=== PATIENT | female | born 1940 | race Caucasian/White ===

== ENCOUNTER 2016-08-18 22:02 | Emergency (ER) | payer MEDICARE, BC ==
[2016-08-18 22:15] VITALS: BP 177/89
--- NOTE | 2016-08-18 22:17 | EDM.PDOC ---
ED HPI GI/ABDOMINAL - General Chief Complaint: Genitourinary Problem Stated Complaint: RIGHT SIDE AND GROIN PAIN Time Seen by Provider: 08/18/16 22:16 - History of Present Illness INITIAL COMMENTS - FREE TEXT/NARRATIVE: 76-year-old female presents to the emergency room with right lower quadrant abdominal pain. This started about 4:00 this afternoon however the patient was not feeling good yesterday and a majority of today. Patient has decreased appetite she has not vomited but her stomach does not feel right. She denies any fevers or chills. No other associated pain. No chest pain chest pressure or breathing difficulties. Patient has a history of having gallbladder surgery otherwise no other abdominal surgeries. She is not aware of any burning or frequency with urination. - Related Data Allergies/ADRs: Allergies Allergy/AdvReac Type Severity Reaction Status Date / Time iodine Allergy Other Verified 08/18/16 22:09 Home Meds: Home Meds Apixaban [Eliquis] 5 mg PO BID 07/03/16 [History] Aspirin [Halfprin] 81 mg PO DAILY 07/03/16 [History] Calcium Carbonate [Calcium] 500 mg PO DAILY 07/03/16 [History] Cholecalciferol (Vitamin D3) [Vitamin D] 2,000 unit PO DAILY 07/03/16 [History] Hydrochlorothiazide 25 mg PO DAILY 07/03/16 [History] Levothyroxine 112 mcg PO DAILY 07/03/16 [History] Losartan [Cozaar] 100 mg PO DAILY 07/03/16 [History] Nadolol [Corgard] 40 mg PO DAILY 07/03/16 [History] Omeprazole 20 mg PO DAILY #30 cap.cr 07/03/16 [Rx] Simvastatin [Zocor] 10 mg PO BEDTIME 07/03/16 [History] Past Medical History Cardiovascular History: Reports: Afib, High cholesterol, Hypertension Respiratory History: Reports: Other (see below) Other Respiratory History: seasonal allergies Gastrointestinal History: Reports: GERD Musculoskeletal History: Reports: Osteoarthritis, Other (see below) Other Musculoskeletal History: carpel tunnel Neurological History: Reports: None Psychiatric History: Reports: Depression Other Psychiatric History: 1992 had bout of depression is off medication now Endocrine/Metabolic History: Reports: Diabetes, type II Other Endocrine/Metabolic History: thryroid removed due to hyperthyroid 2000 - Past Surgical History HEENT Surgical History: Reports: Cataract surgery, Tonsillectomy GI Surgical History: Reports: Cholecystectomy Female Surgical History: Reports: D&C, Other (see below) Other Female Surgeries/Procedures: miscarriage x 1 Musculoskeletal Surgical History: Reports: Arthroscopic procedure Social & Family History - Tobacco Use Smoking Status *Q: Former Smoker Month Tobacco Last Used: 50 yrs ago - Caffeine Use Caffeine Use: Reports: Soda - Recreational Drug Use Recreational Drug Use: No ED ROS GENERAL - Review of Systems Review Of Systems: See Below Constitutional: Reports: no symptoms HEENT: Reports: No symptoms Respiratory: Reports: no symptoms Cardiovascular: Reports: No symptoms Endocrine: Reports: no symptoms GI/Abdominal: Reports: Abdominal pain, Constipation (patient has not had a bowel movement in 2 days however has not been eating much for 2 days), Nausea. Denies: Diarrhea, Vomiting : Reports: no symptoms Musculoskeletal: Reports: other (her abdominal pain is aggravated by walking) Skin: Reports: no symptoms Neurological: Reports: no symptoms ED EXAM, GI/ABD - Physical Exam Exam: See Below Exam Limited By: No limitations General Appearance: alert, no apparent distress Head: atraumatic, normocephalic Neck: normal inspection, supple, non-tender, full range of motion Respiratory/Chest: no respiratory distress, lungs clear, normal breath sounds Cardiovascular: regular rate, rhythm, no edema, no murmur GI/Abdominal: normal bowel sounds, soft, other (she has right lower quadrant mild rebound no gaurding or distention) Back Exam: normal inspection. No: CVA tenderness (L), CVA tenderness (R) Extremities: normal inspection, no pedal edema Psychiatric: normal affect, normal mood Course - Vital Signs Last Recorded V/S: Last Vital Signs Temp 36.4 C 08/18/16 22:09 Pulse 103 H 08/18/16 22:09 Resp 20 08/18/16 22:09 BP 177/89 H 08/18/16 22:09 Pulse Ox 94 L 08/18/16 22:09 - Orders/Labs/Meds Orders: Active Orders 24 hr Category Date Time Status Enema [RC] ASDIRECTED Care 08/19/16 00:18 Active Enema [RC] ASDIRECTED Care 08/19/16 01:18 Active Abdomen Pelvis wo Cont [CT] Stat Exams 08/18/16 22:30 Taken Labs: Laboratory Tests 08/18/16 08/18/16 08/18/16 Range/Units 22:35 22:38 22:38 WBC 6.03 (3.98-10.04) K/mm3 RBC 5.31 H (3.98-5.22) M/mm3 Hgb 16.5 H (11.2-15.7) gm/L Hct 48.8 H (34.1-44.9) % MCV 91.9 (79.4-94.8) fl MCH 31.1 (25.6-32.2) pg MCHC 33.8 (32.2-35.5) g/dl RDW Std Deviation 47.6 H (36.4-46.3) fL Plt Count 188 (182-369) K/mm3 MPV 12.5 H (9.4-12.3) fl Neutrophils % (Manual) 69 H (40-60) % Band Neutrophils % 1 (0-10) % Lymphocytes % (Manual) 22 (20-40) % Atypical Lymphs % 0 % Immat Monocytes % (Man) 0 Monocytes % (Manual) 7 (2-10) % Eosinophils % (Manual) 1 (0.7-5.8) % Basophils % (Manual) 0 L (0.1-1.2) Metamyelocytes % 0 Myelocytes % 0 Promyelocytes % 0 Blast Cells % 0 Plasma Cell % (Manual) 0 Nucleated RBCs 0.0 % Platelet Estimate Adequate RBC Morph Comment Normal PT 10.7 (8.0-13.0) SECONDS INR 1.01 APTT 31 (22-36) SECONDS Sodium (136-145) mEq/L Potassium (3.5-5.1) mEq/L Chloride (98-107) mEq/L Carbon Dioxide (21-32) mEq/L Anion Gap (5-15) BUN (7-18) mg/dL Creatinine (0.55-1.02) mg/dL Est Cr Clr Drug Dosing mL/min Estimated GFR (MDRD) (>60) mL/min BUN/Creatinine Ratio (14-18) Glucose (83-115) mg/dL Calcium (8.5-10.1) mg/dL Total Bilirubin (0.2-1.0) mg/dL AST (15-37) U/L ALT (14-59) U/L Alkaline Phosphatase (46-116) U/L Total Protein (6.4-8.2) g/dl Albumin (3.4-5.0) g/dl Globulin gm/dL Albumin/Globulin Ratio (1-2) Urine Color Yellow (Yellow) Urine Appearance Clear (Clear) Urine pH 7.0 (5.0-8.0) Ur Specific [place] 1.015 (1.005-1.030) Urine Protein Negative (Negative) Urine Glucose (UA) Negative (Negative) Urine Ketones Negative (Negative) Urine Occult Blood Negative (Negative) Urine Nitrite Negative (Negative) Urine Bilirubin Negative (Negative) Urine Urobilinogen 0.2 (0.2-1.0) Ur Leukocyte Esterase Negative (Negative) Urine RBC Not seen (0-5) /hpf Urine WBC Not seen (0-5) /hpf Ur Epithelial Cells 0-5 (0-5) /hpf Urine Bacteria Not seen (FEW) /hpf Urine Mucus Few (FEW) /hpf 08/18/16 Range/Units 22:38 WBC (3.98-10.04) K/mm3 RBC (3.98-5.22) M/mm3 Hgb (11.2-15.7) gm/L Hct (34.1-44.9) % MCV (79.4-94.8) fl MCH (25.6-32.2) pg MCHC (32.2-35.5) g/dl RDW Std Deviation (36.4-46.3) fL Plt Count (182-369) K/mm3 MPV (9.4-12.3) fl Neutrophils % (Manual) (40-60) % Band Neutrophils % (0-10) % Lymphocytes % (Manual) (20-40) % Atypical Lymphs % % Immat Monocytes % (Man) Monocytes % (Manual) (2-10) % Eosinophils % (Manual) (0.7-5.8) % Basophils % (Manual) (0.1-1.2) Metamyelocytes % Myelocytes % Promyelocytes % Blast Cells % Plasma Cell % (Manual) Nucleated RBCs % Platelet Estimate RBC Morph Comment PT (8.0-13.0) SECONDS INR APTT (22-36) SECONDS Sodium 138 (136-145) mEq/L Potassium 3.1 L (3.5-5.1) mEq/L Chloride 99 (98-107) mEq/L Carbon Dioxide 30 (21-32) mEq/L Anion Gap 12.1 (5-15) BUN 18 (7-18) mg/dL Creatinine 1.0 (0.55-1.02) mg/dL Est Cr Clr Drug Dosing 37.26 mL/min Estimated GFR (MDRD) 54 (>60) mL/min BUN/Creatinine Ratio 18.0 (14-18) Glucose 103 (83-115) mg/dL Calcium 9.5 (8.5-10.1) mg/dL Total Bilirubin 0.7 (0.2-1.0) mg/dL AST 20 (15-37) U/L ALT 53 (14-59) U/L Alkaline Phosphatase 74 (46-116) U/L Total Protein 7.8 (6.4-8.2) g/dl Albumin 4.6 (3.4-5.0) g/dl Globulin 3.2 gm/dL Albumin/Globulin Ratio 1.4 (1-2) Urine Color (Yellow) Urine Appearance (Clear) Urine pH (5.0-8.0) Ur Specific [place] (1.005-1.030) Urine Protein (Negative) Urine Glucose (UA) (Negative) Urine Ketones (Negative) Urine Occult Blood (Negative) Urine Nitrite (Negative) Urine Bilirubin (Negative) Urine Urobilinogen (0.2-1.0) Ur Leukocyte Esterase (Negative) Urine RBC (0-5) /hpf Urine WBC (0-5) /hpf Ur Epithelial Cells (0-5) /hpf Urine Bacteria (FEW) /hpf Urine Mucus (FEW) /hpf Meds: Medications Discontinued Medications Generic Name Dose Route Start Last Admin Trade Name Bety PRN Reason Stop Dose Admin Fentanyl 50 mcg 08/19/16 00:16 08/19/16 00:21 Sublimaze IVPUSH 08/19/16 00:17 50 mcg ONETIME ONE Administration Lactated Ringer's 500 mls @ 999 mls/hr 08/18/16 22:32 08/18/16 22:42 Ringers, Lactated IV 08/18/16 23:02 999 mls/hr .BOLUS ONE Administration Lactated Ringer's 1,000 mls @ 125 mls/hr 08/18/16 22:45 Ringers, Lactated IV ASDIRECTED [facility] Ondansetron HCl 4 mg 08/18/16 22:32 08/18/16 22:43 Zofran IVPUSH 08/18/16 22:33 4 mg ONETIME ONE Administration - Re-Assessments/Exams Free Text/Narrative Re-Assessment/Exam: 08/18/16 22:56 labs ordered I went ahead and ordered a abdominal pelvic CT as the patient is on Eliquis and they have a long drive in with the winter conditions, and if this is early appendicitis I do not want a delayed diagnosis. 08/19/16 00:15 patient had a barium study done this morning and has not moved the barium passed her right colon. This makes interpretation of the lower half of the study very difficult. Most of her oral contrast instilled her stomach and proximal small bowel. The patient is not feeling any better at this time we will try a Fleets Enema and see if we get this cleared up. If she is feeling better after this we'll not pursue further imaging if not we'll repeat the study. 08/19/16 03:06 patient had a couple of enemas and has had multiple BMs. She is pain-free at this point. We will not pursue further images. Departure - Departure Time of Disposition: 03:07 Disposition: Home, Self-Care 01 Clinical Impression: Resolved abdominal pain Instructions: Abdominal Pain, Adult, [id number] Referrals: Albert Carlson MD [Primary Care Provider] - Forms: ED Department Discharge Additional Instructions: Return to the emergency room with any questions or problems. Return with worsening or returning abdominal pain. Push lots of fluids as well as a regular diet. Followup with your regular physician as needed. - My Orders Last 24 Hours: My Active Orders 08/18/16 22:30 Abdomen Pelvis wo Cont [CT] Stat 08/19/16 00:18 Enema [RC] ASDIRECTED 08/19/16 01:18 Enema [RC] ASDIRECTED - Assessment/Plan Last 24 Hours: My Active Orders 08/18/16 22:30 Abdomen Pelvis wo Cont [CT] Stat 08/19/16 00:18 Enema [RC] ASDIRECTED 08/19/16 01:18 Enema [RC] ASDIRECTED
[2016-08-18] MEDS ORDERED: Ondansetron 4 MG/2 ML SDV IVPUSH ONE (22:32)
[2016-08-18] MEDS ORDERED: Lactated Ringers 500 ML IV ONE (22:32)
[2016-08-18] MEDS ORDERED: Lactated Ringers 1,000 ML IV SCH (22:45)
[2016-08-19] MEDS ORDERED: fentaNYL 100 MCG/2 ML SDV IVPUSH ONE (00:16)
--- NOTE | 2016-08-19 08:36 | CT ---
CT abdomen and pelvis Technique: Multiple axial sections were obtained from above the dome of the diaphragm inferiorly through the pubic symphysis. Intravenous contrast not utilized. Oral contrast has been given. Findings: Significant artifact is identified due to standard oral contrast from upper GI study performed one day earlier. Findings: Visualized lung bases show nothing acute. Noncontrast appearance of the liver shows no discrete abnormality. Spleen appears within normal limits. Adrenal glands show no nodule. Kidneys show no hydronephrosis. No abnormal calcifications seen within the kidneys. Pancreas appears atrophic without discrete abnormality. Aorta shows no aneurysmal dilatation. No retroperitoneal adenopathy is seen. Appendix and other portions of the lower right abdomen and pelvis are very poorly seen secondary to the barium artifact. Scattered air noted within small bowel which shows no dilatation possibly due to mild ileus. Bone window settings show scattered degenerative change within the spine. Impression: 1. Very suboptimal study due to barium artifact. Barium given on previous upper GI study performed one day earlier. 2. Slightly prominent gas within small bowel possibly due to mild ileus. 3. Other incidental findings as noted above. Diagnostic code #2 I agree with preliminary report issued by [employer] (preliminary report dictated on 08/19/16, 4:58 AM Central Time)
== END 2016-08-19 04:46 | disposition home or self-care (01) ==
LOC: JD.ED 22:02
DX: R10.31 Right lower quadrant pain (principal); I10 Essential (primary) hypertension; I48.91 Unspecified atrial fibrillation; E78.00 Pure hypercholesterolemia, unspecified; K21.9 Gastro-esophageal reflux disease without esophagitis; F32.9 Major depressive disorder, single episode, unspecified; Z98.49 Cataract extraction status, unspecified eye; Z90.49 Acquired absence of other specified parts of digestive tract; Z98.890 Other specified postprocedural states; Z87.891 Personal history of nicotine dependence; Z79.82 Long term (current) use of aspirin; Z79.899 Other long term (current) drug therapy; Z91.041 Radiographic dye allergy status; K22.4 Dyskinesia of esophagus; M34.1 CR(E)ST syndrome
CPT/HCPCS: 36415; 74176; 74246; 80053; 81001; 85025; 85610; 85730; 96361; 96374; 96375; 99284; J2405; J3010; J7120

== ENCOUNTER 2016-09-17 03:57 | Emergency (ER) | payer MEDICARE, BC ==
[2016-09-17 04:12] VITALS: BP 149/82
--- NOTE | 2016-09-17 04:13 | EDM.PDOC ---
ED HPI Trauma - General Chief Complaint: Upper Extremity Injury/Pain Stated Complaint: INJURY TO RIGHT WRIST Time Seen by Provider: 09/17/16 04:13 - History of Present Illness INITIAL COMMENTS - FREE TEXT/NARRATIVE: 76-year-old female presents emergency room with right wrist and thumb pain. About 1:00 yesterday afternoon the patient fell forward onto an outstretched hand. After she did this she got up and went about her regular activities has some discomfort but nothing that really slowed her down as time went by the pain got progressively worse around bedtime the pain is getting quite severe she tried to go to sleep but she just couldn't. She comes in this morning for evaluation. Patient has no numbness or tingling in her hand just pain around her wrist and the base of her thumb. Patient has had problems with her thumbs in the past. Allergies/ADRs: Allergies iodine Allergy (Verified 09/17/16 06:16) Other Home Medications: Ambulatory Orders Apixaban [Eliquis] 5 mg PO BID 07/03/16 [Confirmed 08/10/16] Aspirin [Halfprin] 81 mg PO DAILY 07/03/16 [Confirmed 08/10/16] Calcium Carbonate [Calcium] 500 mg PO DAILY 07/03/16 [Confirmed 08/10/16] Cholecalciferol (Vitamin D3) [Vitamin D] 2,000 unit PO DAILY 07/03/16 [ Confirmed 08/10/16] Hydrochlorothiazide 25 mg PO DAILY 07/03/16 [Confirmed 08/10/16] Levothyroxine 112 mcg PO DAILY 07/03/16 [Confirmed 08/10/16] Losartan [Cozaar] 100 mg PO DAILY 07/03/16 [Confirmed 08/10/16] Nadolol [Corgard] 40 mg PO DAILY 07/03/16 [Confirmed 08/10/16] Omeprazole 20 mg PO DAILY #30 cap.cr 07/03/16 [Confirmed 08/10/16] Simvastatin [Zocor] 10 mg PO BEDTIME 07/03/16 [Confirmed 08/10/16] Hydrocodone/Acetaminophen [Anderson 5-325 Tablet] 1 each PO Q6H PRN #15 tablet Past Medical History Cardiovascular History: Reports: Afib, High cholesterol, Hypertension Respiratory History: Reports: Other (see below) Other Respiratory History: seasonal allergies Gastrointestinal History: Reports: GERD Musculoskeletal History: Reports: Osteoarthritis, Other (see below) Other Musculoskeletal History: carpel tunnel Neurological History: Reports: None Psychiatric History: Reports: Depression Other Psychiatric History: 1992 had bout of depression is off medication now Endocrine/Metabolic History: Reports: Diabetes, type II Other Endocrine/Metabolic History: thryroid removed due to hyperthyroid 2000 - Past Surgical History HEENT Surgical History: Reports: Cataract surgery, Tonsillectomy GI Surgical History: Reports: Cholecystectomy Female Surgical History: Reports: D&C, Other (see below) Other Female Surgeries/Procedures: miscarriage x 1 Musculoskeletal Surgical History: Reports: Arthroscopic procedure Social & Family History - Tobacco Use Smoking Status *Q: Former Smoker Month Tobacco Last Used: 50 yrs ago - Caffeine Use Caffeine Use: Reports: Soda - Recreational Drug Use Recreational Drug Use: No Review of Systems - Review of Systems Review Of Systems: See Below Constitutional: Denies: chills, fever Respiratory: Reports: No Symptoms Cardiovascular: Reports: no symptoms GI/Abdominal: Reports: No symptoms Trauma Exam - Physical Exam Exam: See Below Exam Limited By: No limitations General Appearance: Reports: alert, no apparent distress, other (She does well as long she doesn't trying to move her right wrist) Head: Reports: atraumatic, normocephalic Neck: Reports: non-tender, full range of motion, normal alignment, normal inspection Respiratory Exam: Reports: no respiratory distress, lungs clear, normal breath sounds Cardiovascular: Reports: regular rate, rhythm, no edema, no murmur Extremities: Reports: other (Examination of her right wrist and hand shows no obvious fracture deformity flexion extension of the wrist is limited she's got significant snuffbox tenderness. Movement of the digits of the hand are fairly normal except her thumb which is limited due to discomfort near the base) ED TRAUMA EXTREMITY PROCEDURES - Splinting Right Upper Extremity Splint site: Right wrist and thumb Pre-procedure NV status: normal Post-procedure NV status: normal Splint material: fiberglass Splint design: thumb spica Applied & form fitted by: provider Provider post-splint application NV check: NV status normal Complications: No (Patient felt better after placement of the splint) Course - Vital Signs Last Recorded V/S: Last Vital Signs Temp 36.9 C 09/17/16 04:10 Pulse 75 09/17/16 04:10 Resp 18 09/17/16 04:10 BP 149/82 H 09/17/16 04:10 Pulse Ox 100 09/17/16 04:10 - Orders/Labs/Meds Meds: Medications Discontinued Medications Generic Name Dose Route Start Last Admin Trade Name Bety PRN Reason Stop Dose Admin Hydrocodone Bitart/Acetaminophen 1 tab 09/17/16 06:24 09/17/16 06:33 Anderson 325-5 Mg PO 09/17/16 06:25 1 tab ONETIME ONE Administration - Re-Assessments/Exams Free Text/Narrative Re-Assessment/Exam: 09/17/16 08:32 X-ray examination shows diffuse osteopenia significant degenerative changes especially at the base of the thumb. No clear fracture is identified. The patient was placed in a thumb spica splint with her snuffbox discomfort. Patient felt much better after the placement of this. Departure - Departure Time of Disposition: 08:02 Disposition: Home, Self-Care 01 Clinical Impression: Right wrist injury, Pain of right thumb Prescriptions: Hydrocodone/Acetaminophen [Anderson 5-325 Tablet] 1 each PO Q6H PRN #15 tablet PRN Reason: Pain Instructions: Wrist Pain, [id number] Referrals: Albert Carlson MD [Primary Care Provider] - Edgar Thomas MD [Physician] - Forms: ED Department Discharge Additional Instructions: Return to the emergency room with any questions or problems. Keep splint in place. Do not drive while wearing the splint. Keep arm elevated as tolerated ice every couple of hours over wrist as tolerated. Tylenol as needed for pain For more severe pain use the Anderson one every 6 hours as needed. Tylenol dose should not exceed 3000 mg in a 24-hour period. The Anderson contains 325 mg of Tylenol per tablet. Followup with Dr. Thomas today next week
--- NOTE | 2016-09-17 06:13 | CR ---
Right hand: 4 views of the right hand were obtained. Comparison: Previous right hand study of 07/15/13. Mild joint space narrowing is scattered within the DIP and PIP joints as well as within the MCP joint of the thumb and mild joint space narrowing within the second through fourth fingers. Mild joint space narrowing is seen within the IP joint. Bony structures are somewhat osteopenic. Bony density is seen off the PIP joint of the third digit which is compatible with old injury. Osteophytes are seen within the DIP joints of the second and third digits. Degenerative change also noted at the CMC joint of the thumb. Joint space narrowing noted off the distal navicular bone. No acute fracture or other bony abnormality is seen. Impression: 1. Degenerative change as noted above. Osteopenia is seen. 2. No acute bony abnormality is identified. Diagnostic code #2
--- NOTE | 2016-09-17 06:13 | CR ---
Right wrist: 4 views of the right wrist were obtained. Joint space narrowing is noted off the distal navicular bone. Moderate degenerative change is seen within CMC joint of the thumb. Mild soft tissue swelling is seen. Cyst noted within the distal radius believed to be degenerative in etiology. No acute fracture, dislocation or other bony abnormality is seen. Impression: 1. Degenerative change and soft tissue swelling. 2. No acute bony abnormality is seen on right wrist exam. Diagnostic code #2
[2016-09-17] MEDS ORDERED: Acetaminophen/HYDROcodone 325-5 MG Tab PO ONE (06:24)
== END 2016-09-17 08:30 | disposition home or self-care (01) ==
LOC: JD.ED 03:57
DX: S69.91XA Unspecified injury of right wrist, hand and finger(s), initial encounter (principal); I10 Essential (primary) hypertension; E78.00 Pure hypercholesterolemia, unspecified; K21.9 Gastro-esophageal reflux disease without esophagitis; M19.90 Unspecified osteoarthritis, unspecified site; F32.9 Major depressive disorder, single episode, unspecified; E11.9 Type 2 diabetes mellitus without complications; E89.0 Postprocedural hypothyroidism; Z98.49 Cataract extraction status, unspecified eye; Z98.890 Other specified postprocedural states; Z90.49 Acquired absence of other specified parts of digestive tract; Z79.82 Long term (current) use of aspirin; Z79.899 Other long term (current) drug therapy; Z87.891 Personal history of nicotine dependence; W19.XXXA Unspecified fall, initial encounter
CPT/HCPCS: 29125; 73110; 73130; 99283; A9270

== ENCOUNTER 2018-02-07 06:11 | Inpatient (IN) | payer MEDICARE, BC ==
[~2018-02-07 06:11] MED LIST: Lactated Ringers 1,000 ML IV SCH; Lidocaine 1%/Sod Bicarbonate in NS 8.4% 1 ML Syringe IDERM PRN; Sodium Chloride 0.9% 10 ML Syringe FLUSH PRN
[2018-02-07] MEDS ORDERED: Propofol 200 MG/20 ML SDV ONE (06:29)
[2018-02-07] MEDS ORDERED: fentaNYL 100 MCG/2 ML SDV ONE (06:30)
[2018-02-07] MEDS ORDERED: Ketorolac 15 MG/ML SDV IVPUSH PRN (06:31)
[2018-02-07] MEDS ORDERED: Cyclobenzaprine 10 MG Tab PO PRN (06:31)
[2018-02-07] MEDS ORDERED: Morphine 8 MG, EPINEPHrine 0.3 MG, Cefuroxime 750 MG, Ketorolac 30 MG, Sodium Chloride ... ONE ×5 (06:31)
[2018-02-07] MEDS ORDERED: Bisacodyl 5 MG Tab PO PRN (06:32)
[2018-02-07] MEDS ORDERED: Morphine 2 MG/ML Syringe IVPUSH PRN (06:32)
[2018-02-07] MEDS ORDERED: Magnesium Hydroxide 400 MG/5 ML Susp 30 ML Cup PO PRN (06:32)
[2018-02-07] MEDS ORDERED: Sennosides 8.6 MG Tab PO PRN (06:32)
[2018-02-07] MEDS ORDERED: Ondansetron 4 MG/2 ML SDV IVPUSH PRN ×2 (06:32→09:16)
[2018-02-07] MEDS ORDERED: Naloxone 0.4 MG/ML SDV IVPUSH PRN (06:32)
[2018-02-07] MEDS ORDERED: Morphine PF 10 MG/10 ML SDV ONE (06:34)
[2018-02-07] MEDS ORDERED: Bupivacaine 0.75% 30 ML SDV ONE (06:35)
[2018-02-07] MEDS ORDERED: ceFAZolin 1 GM Vial ONE ×2 (06:35→06:40)
[2018-02-07] MEDS ORDERED: Bupivacaine 0.25% 30 ML SDV ONE ×2 (06:35→07:10)
[2018-02-07] MEDS ORDERED: Ondansetron 4 MG/2 ML SDV ONE (06:35)
[2018-02-07] MEDS ORDERED: Vancomycin 1 GM SDV ONE (06:35)
--- NOTE | 2018-02-07 06:51 | PCM.PREANE ---
Preanesthetic Assessment - Procedure Proposed Procedure: Left THR - Anesthesia/Transfusion/Family Hx Anesthesia History: Prior Anesthesia Without Reaction Family History of Anesthesia Reaction: No Transfusion History: No Prior Transfusion(s) Additional History: hx lumbar back surgery - Review of Systems General: No Symptoms Pulmonary: Shortness of Breath (from Afib), Other (MESHA with CPAP) Cardiovascular: Other (Afib, HTN, CHF ) Gastrointestinal: Other (GERD) Neurological: No Symptoms Other: Reports: Easy Bruising, Diabetes (preDM), Thyroid Problems (hypothyroid- thyroidectomy ), Depression, Anxiety - Physical Assessment NPO Status Date: 02/06/18 NPO Status Time: 19:30 Pulse: 70 O2 Sat by Pulse Oximetry: 97 Respiratory Rate: 16 Blood Pressure: 152/90 Temperature: 36.6 C Height: 1.57 m Weight: 54 kg ASA Class: 3 Mental Status: Alert & Oriented x3 Airway Class: Mallampati = 1 Dentition: Reports: Normal Dentition (2 molars ), Missing Tooth/Teeth Thyro-Mental Finger Breadths: 3 Mouth Opening Finger Breadths: 3 ROM/Head Extension: Full Lungs: Clear to Auscultation, Normal Respiratory Effort Cardiovascular: Regular Rate, Irregular Rhythm - Lab Values: Laboratory Last Values MRSA (PCR) Negative 01/18/18 16:52 - Allergies Allergies/Adverse Reactions: Allergies Allergy/AdvReac Type Severity Reaction Status Date / Time cat dander Allergy Cannot Verified 02/04/18 12:35 Remember iodine Allergy Other Verified 02/04/18 12:35 hay fever Allergy Cannot Uncoded 02/04/18 12:35 Remember - Blood Blood Available: No Product(s) Available: None - Anesthesia Plan Pre-Op Medication Ordered: None Beta Tashi: Nadolol Med Last Dose Date: 02/06/18 Med Last Dose Time: 22:30 - Acknowledgements Anesthesia Type Planned: Spinal (with duramorph) Pt an Appropriate Candidate for the Planned Anesthesia: Yes Alternatives and Risks of Anesthesia Discussed w Pt/Guardian: Yes Pt/Guardian Understands and Agrees with Anesthesia Plan: Yes PreAnesthesia Questionnaire HEENT History: Reports: Allergic Rhinitis, Other (See Below) Other HEENT History: eustachian tube dysfunction, bruxism, tonsillitis, wears glasses Cardiovascular History: Reports: Afib, Heart Failure, High Cholesterol, Hypertension Respiratory History: Reports: Sleep Apnea, Other (See Below) Other Respiratory History: seasonal allergies Gastrointestinal History: Reports: Gastritis, GERD, Other (See Below) Other Gastrointestinal History: reflux Genitourinary History: Reports: Urinary Incontinence 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 (See Below) Other OB/BYN History: right breast lump Musculoskeletal History: Reports: Osteoarthritis, Osteoporosis, Other (See Below ) Other Musculoskeletal History: right great toe bunion, right foot metatrsalgia, synovial cyst of popliteal space, carpal tunnel syndrome, degnerative joint disease, knee pain Neurological History: Reports: None, TIA Psychiatric History: Reports: Depression Other Psychiatric History: malaise, fatigue Endocrine/Metabolic History: Reports: Diabetes, Type II, Hypothyroidism Other Endocrine/Metabolic History: thryroid removed due to hyperthyroid 2000 Hematologic History: Reports: None Immunologic History: Reports: None Oncologic (Cancer) History: Reports: None Dermatologic History: Reports: Other (See Below) Other Dermatologic History: skin lesion, cyst excison - Past Surgical History Head Surgeries/Procedures: Reports: None HEENT Surgical History: Reports: Cataract Surgery, Tonsillectomy Cardiovascular Surgical History: Reports: None Respiratory Surgical History: Reports: None GI Surgical History: Reports: Cholecystectomy, Colonoscopy, EGD Female Surgical History: Reports: D&C, Other (See Below) Other Female Surgeries/Procedures: miscarriage x 1 Endocrine Surgical History: Reports: Thyroidectomy Neurological Surgical History: Reports: Other (See Below) Other Neurological Surgeries/Procedures: back surgery Musculoskeletal Surgical History: Reports: Arthroscopic Procedure, Carpal Tunnel Oncologic Surgical History: Reports: None - SUBSTANCE USE Smoking Status *Q: Former Smoker Second Hand Smoke Exposure: No Recreational Drug Use History: No - HOME MEDS Home Medications: Home Meds Apixaban [Eliquis] 5 mg PO BID 07/03/16 [History] Aspirin [Halfprin] 81 mg PO DAILY 07/03/16 [History] Cholecalciferol (Vitamin D3) [Vitamin D] 5,000 unit PO DAILY 07/03/16 [History] Levothyroxine 112 mcg PO DAILY 07/03/16 [History] Losartan [Cozaar] 50 mg PO BID 07/03/16 [History] Nadolol [Corgard] 40 mg PO DAILY 07/03/16 [History] Ca Carbonate/Vitamin D3/Vit K [Calcium + D Soft Chewable Tab] 1 tab PO DAILY [History] Denosumab [Prolia] 60 mg SQ Q6M 02/04/18 [History] Diclofenac Sodium 1 dose TOP ASDIRECTED PRN 02/04/18 [History] Fexofenadine [Emily] 180 mg PO DAILY 02/04/18 [History] Furosemide 20 mg PO DAILY 02/04/18 [History] Ketotifen Fumarate [Allergy Eye Drops] 1 drop EYEBOTH Q4H PRN 02/04/18 [History] Simvastatin 10 mg PO DAILY 02/04/18 [History] buPROPion HCl [Wellbutrin Xl] 150 mg PO DAILY 02/04/18 [History] - CURRENT (IN HOUSE) MEDS Current Meds: Current Medications Bisacodyl (Dulcolax) 5 mg PO DAILY PRN PRN Reason: Constipation Cyclobenzaprine HCl (Flexeril) 10 mg PO TID PRN PRN Reason: Spasms Docusate Sodium (Colace) 100 mg PO BID JUSTUS Famotidine (Pepcid) 20 mg PO Q12H JUSTUS Lactated Ringer's (Ringers, Lactated) 1,000 mls @ 125 mls/hr IV ASDIRECTED JUSTUS Cefazolin Sodium/Dextrose 2 gm (/ Premix) 50 mls @ 100 mls/hr IV Q8H JUSTUS Stop: 02/08/18 06:29 Ketorolac Tromethamine (Toradol) 15 mg IVPUSH Q6H PRN PRN Reason: Pain Lidocaine/Sodium Bicarbonate (Buffered Lidocaine 1% In Ns 8.4%) 0.25 ml IDERM ONETIME PRN PRN Reason: Prior to IV Start Magnesium Hydroxide (Milk Of Magnesia) 30 ml PO BID PRN PRN Reason: Constipation Morphine Sulfate (Morphine) 2 mg IVPUSH Q2H PRN PRN Reason: Breakthrough Pain Naloxone HCl (Narcan) 0.1 mg IVPUSH Q5M PRN PRN Reason: Oversedation Ondansetron HCl (Zofran) 4 mg IVPUSH Q6H PRN PRN Reason: Nausea/Vomiting Oxycodone/Acetaminophen (Percocet 325-5 Mg) 1 - 2 tab PO Q4H PRN PRN Reason: Pain Senna (Senna) 8.6 mg PO BID PRN PRN Reason: Constipation Sodium Chloride (Saline Flush) 10 ml FLUSH ASDIRECTED PRN PRN Reason: Keep Vein Open Discontinued Medications Bupivacaine HCl (Marcaine 0.25%) Confirm Administered Dose 30 ml .ROUTE .STK- MED ONE Stop: 02/07/18 06:36 Bupivacaine HCl (Sensorcaine-Mpf 0.75%) Confirm Administered Dose 30 ml .ROUTE .STK-MED ONE Stop: 02/07/18 06:36 Cefazolin Sodium (Ancef) Confirm Administered Dose 2 gm .ROUTE .STK-MED ONE Stop: 02/07/18 06:36 Cefazolin Sodium (Ancef) Confirm Administered Dose 2 gm .ROUTE .STK-MED ONE Stop: 02/07/18 06:41 Morphine Sulfate 8 mg/Epinephrine HCl 0.3 mg/Cefuroxime Sodium 750 mg/Ketorolac Tromethamine 30 mg/Sodium Chloride 27.9 ml 0 mg .XX ONETIME ONE Stop: 02/07/18 06:32 Fentanyl (Sublimaze) Confirm Administered Dose 100 mcg .ROUTE .STK-MED ONE Stop: 02/07/18 06:31 Morphine Sulfate (Duramorph Pf) Confirm Administered Dose 10 mg .ROUTE .STK-MED ONE Stop: 02/07/18 06:35 Ondansetron HCl (Zofran) Confirm Administered Dose 4 mg .ROUTE .STK-MED ONE Stop: 02/07/18 06:36 Propofol (Diprivan 20 Ml) Confirm Administered Dose 400 mg .ROUTE .STK-MED ONE Stop: 02/07/18 06:30 Tranexamic Acid (Cyklokapron) Confirm Administered Dose 1,000 mg .ROUTE .STK- MED ONE Stop: 02/07/18 06:36 Vancomycin HCl (Vancomycin) Confirm Administered Dose 1 gm .ROUTE .STK-MED ONE Stop: 02/07/18 06:36
[2018-02-07] MEDS ORDERED: ePHEDrine/Normal Saline 25 MG/5 ML Syringe ONE (08:06)
[2018-02-07] MEDS ORDERED: Lactated Ringers 1,000 ML ONE (08:55)
[2018-02-07] MEDS ORDERED: Meperidine 50 MG/ML Vial IVPUSH PRN (09:16)
[2018-02-07] MEDS ORDERED: diphenhydrAMINE 50 MG/ML SDV IVPUSH PRN (09:16)
[2018-02-07] MEDS ORDERED: fentaNYL 100 MCG/2 ML SDV IVPUSH PRN (09:16)
--- NOTE | 2018-02-07 09:18 | PCM.POSTAN ---
POST ANESTHESIA ASSESSMENT - MENTAL STATUS Mental Status: Somnolent - VITAL SIGNS Pulse Rate: 64 SaO2: 98 Resp Rate: 16 Blood Pressure: 120/82 Temperature: 36.7 C - RESPIRATORY Respiratory Status: Respiratory Rate WNL, Airway Patent, O2 Saturation Stable, Supplemental Oxygen - CARDIOVASCULAR CV Status: Pulse Rate WNL, Blood Pressure Stable - GASTROINTESTINAL GI Status: No Symptoms - PAIN Pain Score: 0 - POST OP HYDRATION Hydration Status: Adequate & Stable
[2018-02-07] MEDS ORDERED: Diclofenac Sodium 1% Gel 100 GM Tube TOP PRN (10:17)
[2018-02-07] MEDS ORDERED: ZADITOR OPTH EYEBOTH PRN (10:17)
--- NOTE | 2018-02-07 10:45 | PCM.CONS ---
H&P History of Present Illness - General Date of Service: 02/07/18 Admit Problem/Dx: Admission Diagnosis/Problem Admission Diagnosis/Problem Osteoarthritis of hip Source of Information: Patient, Old Records, Provider, RN, RN Notes Reviewed, Other (Surgical notes ) History Limitations: Reports: No Limitations - History of Present Illness Initial Comments - Free Text/Narative: Catherine Noriega is a 77 yo female patient of Dr. Thomas who is post-operative day 0 of left ИРИНА. Hospital medicine was consulted for post-operative medical care. At this time she is resting comfortably in bed with her CPAP on. Pain is controlled. She denies any chest pain, nausea, or vomiting. She reports baseline A-fib leading to palpitations and shortness of breath but states this is no worse than normal and at baseline. She carries a history of: A-fib, HLD, CHF, MESHA, metabolic syndrome, HTN, GERD, Hypothyroid, osteoporosis, "Pre- dibaetic," Hx/o lumbar spine surgery, anxiety, depression, urinary incontinence , OA, TIA. She is a former smoker. She is a full code. Her primary care provider is Dr. Carlson. Left Hip Pain Score (Numeric/FACES): 0 - Related Data Allergies/Adverse Reactions: Allergies Allergy/AdvReac Type Severity Reaction Status Date / Time cat dander Allergy Cannot Verified 02/07/18 10:55 Remember iodine Allergy Other Verified 02/07/18 10:55 hay fever Allergy Cannot Uncoded 02/07/18 10:55 Remember Home Medications: Home Meds Apixaban [Eliquis] 5 mg PO BID 07/03/16 [History] Aspirin [Halfprin] 81 mg PO DAILY 07/03/16 [History] Cholecalciferol (Vitamin D3) [Vitamin D] 5,000 unit PO DAILY 07/03/16 [History] Levothyroxine 112 mcg PO DAILY 07/03/16 [History] Losartan [Cozaar] 50 mg PO BID 07/03/16 [History] Nadolol [Corgard] 40 mg PO DAILY 07/03/16 [History] Ca Carbonate/Vitamin D3/Vit K [Calcium + D Soft Chewable Tab] 1 tab PO DAILY [History] Denosumab [Prolia] 60 mg SQ Q6M 02/04/18 [History] Diclofenac Sodium 1 dose TOP ASDIRECTED PRN 02/04/18 [History] Fexofenadine [Emily] 180 mg PO DAILY PRN 02/04/18 [History] Furosemide 20 mg PO DAILY 02/04/18 [History] Ketotifen Fumarate [Allergy Eye Drops] 1 drop EYEBOTH Q4H PRN 02/04/18 [History] Simvastatin 10 mg PO DAILY 02/04/18 [History] buPROPion HCl [Wellbutrin Xl] 150 mg PO DAILY 02/04/18 [History] Past Medical History HEENT History: Reports: Allergic Rhinitis, Other (See Below) Other HEENT History: eustachian tube dysfunction, bruxism, tonsillitis, wears glasses Cardiovascular History: Reports: Afib, Heart Failure, High Cholesterol, Hypertension Respiratory History: Reports: Sleep Apnea, Other (See Below) Other Respiratory History: seasonal allergies Gastrointestinal History: Reports: Gastritis, GERD, Other (See Below) Other Gastrointestinal History: reflux Genitourinary History: Reports: Urinary Incontinence 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 (See Below) Other OB/BYN History: right breast lump Musculoskeletal History: Reports: Osteoarthritis, Osteoporosis, Other (See Below ) Other Musculoskeletal History: right great toe bunion, right foot metatrsalgia, synovial cyst of popliteal space, carpal tunnel syndrome, degnerative joint disease, knee pain Neurological History: Reports: None, TIA Psychiatric History: Reports: Depression Other Psychiatric History: malaise, fatigue Endocrine/Metabolic History: Reports: Diabetes, Type II, Hypothyroidism Other Endocrine/Metabolic History: thryroid removed due to hyperthyroid 2000 Hematologic History: Reports: None Immunologic History: Reports: None Oncologic (Cancer) History: Reports: None Dermatologic History: Reports: Other (See Below) Other Dermatologic History: skin lesion, cyst excison - Past Surgical History Head Surgeries/Procedures: Reports: None HEENT Surgical History: Reports: Cataract Surgery, Tonsillectomy Cardiovascular Surgical History: Reports: None Respiratory Surgical History: Reports: None GI Surgical History: Reports: Cholecystectomy, Colonoscopy, EGD Female Surgical History: Reports: D&C, Other (See Below) Other Female Surgeries/Procedures: miscarriage x 1 Endocrine Surgical History: Reports: Thyroidectomy Neurological Surgical History: Reports: Other (See Below) Other Neurological Surgeries/Procedures: back surgery Musculoskeletal Surgical History: Reports: Arthroscopic Procedure, Carpal Tunnel Oncologic Surgical History: Reports: None Social & Family History - Tobacco Use Smoking Status *Q: Former Smoker Used Tobacco, but Quit: Yes Month/Year Tobacco Last Used: 1963 Second Hand Smoke Exposure: No - Caffeine Use Caffeine Use: Reports: Tea - Recreational Drug Use Recreational Drug Use: No H&P Review of Systems - Review of Systems: Review Of Systems: See Below General: Reports: No Symptoms HEENT: Reports: No Symptoms Pulmonary: Reports: Shortness of Breath (chronic -currently at baseline ). Denies: Wheezing, Cough, Sputum Cardiovascular: Reports: Palpitations (chronic- currently at baseline). Denies : Chest Pain, Edema Gastrointestinal: Reports: No Symptoms. Denies: Abdominal Pain, Nausea, Vomiting Genitourinary: Reports: No Symptoms Musculoskeletal: Reports: Leg Pain Skin: Reports: No Symptoms Psychiatric: Reports: No Symptoms Neurological: Reports: Numbness (bilateral lower extermities ), Tingling ( bilateral lower extremities ). Denies: Confusion, Dizziness, Headache, Seizure , Trouble Speaking Hematologic/Lymphatic: Reports: No Symptoms Immunologic: Reports: No Symptoms Exam - Exam Exam: See Below - Vital Signs Vital Signs: Last Vital Signs Temp 98.4 F 02/07/18 10:05 Pulse 60 02/07/18 10:15 Resp 13 02/07/18 10:15 BP 140/74 02/07/18 10:15 Pulse Ox 99 02/07/18 10:15 Weight: 119 lb 0.794 oz - Exam Quality Assessment: Urinary Catheter, DVT Prophylaxis, Other (CAPA currenlty on while napping) General: Alert, Oriented, Cooperative. No: Mild Distress HEENT: Conjunctiva Clear, EACs Clear, EOMI, Hearing Intact, Mucosa Moist & [place] , Nares Patent, Posterior Pharynx Clear, PERRLA Neck: Supple, Trachea Midline. No: JVD Lungs: Clear to Auscultation, Normal Respiratory Effort Cardiovascular: Regular Rate, Irregular Rhythm GI/Abdominal Exam: Normal Bowel Sounds, Soft, Non-Tender, No Distention, No Abnormal Bruit (Female) Exam: Deferred Rectal (Female) Exam: Deferred Back Exam: Normal Inspection, Full Range of Motion Extremities: No Pedal Edema, Normal Capillary Refill, Leg Pain, Limited Range of Motion, Other (TING banadge in place on left leg. Bandage is dry and intact. Colling pack in place ) Peripheral Pulses: 2+: Radial (L), Radial (R), Posterior Tibial (L), Posterior Tibial (R), Dorsalis Pedis (L), Dorsalis Pedis (R) Skin: Warm, Dry, Intact Neurological: Cranial Nerves Intact (grossly) Neuro Extensive - Mental Status: Alert, Oriented x3, Normal Mood/Affect, Normal Cognition Psychiatric: Alert, Normal Affect, Normal Mood - Patient Data Lab Results Last 24 hrs: Laboratory Results - last 24 hr 02/07/18 Range/Units 06:53 Blood Type A POSITIVE Gel Antibody Screen Negative Consult PN Assessment/Plan POD#: 0 Procedures: Procedures APPLY FOREARM SPLINT (09/17/16) ASSAY OF LIPASE (07/03/16) ASSAY OF TROPONIN QUANT (07/03/16) CARDIOVASCULAR STRESS TEST (08/12/15) CHEST X-RAY 2VW FRONTAL&LATL (07/03/16) COMP SCREEN MAMMOGRAM ADD-ON (02/19/16) COMPLETE CBC W/AUTO DIFF WBC (08/18/16) COMPREHEN METABOLIC PANEL (08/18/16) CONTRST X-RAY UPPR GI TRACT (08/18/16) CT ABD & PELVIS W/O CONTRAST (08/18/16) CULTURE SCREEN ONLY (12/03/14) DXA BONE DENSITY AXIAL (08/10/16) ECG MONIT/REPRT UP TO 48 HRS (05/23/15) ECG MONIT/REPRT UP TO 48 HRS (05/23/15) EGD BIOPSY SINGLE/MULTIPLE (08/10/16) ELECTROCARDIOGRAM TRACING (07/03/16) EMERGENCY DEPT VISIT (09/17/16) EMERGENCY DEPT VISIT (08/18/16) EMERGENCY DEPT VISIT (07/03/16) EVALUATION OF WHEEZING (05/23/15) HT MUSCLE IMAGE SPECT MULT (08/12/15) HYDRATE IV INFUSION ADD-ON (08/18/16) OFFICE/OUTPATIENT VISIT EST (12/03/14) PROTHROMBIN TIME (08/18/16) ROUTINE VENIPUNCTURE (08/18/16) STREP A AG IA (12/03/14) THER/PROPH/DIAG INJ IV PUSH (08/18/16) THROMBOPLASTIN TIME PARTIAL (08/18/16) TISSUE EXAM BY PATHOLOGIST (08/10/16) TX/PRO/DX INJ NEW DRUG ADDON (08/18/16) URINALYSIS AUTO W/SCOPE (08/18/16) X-RAY EXAM OF HAND (09/17/16) X-RAY EXAM OF WRIST (09/17/16) (1) S/P total hip arthroplasty SNOMED Code(s): 034986519400, 452997851213 Code(s): Z96.649 - PRESENCE OF UNSPECIFIED ARTIFICIAL HIP JOINT Priority: High Current Visit: Yes Qualifiers: Laterality: left Qualified Code(s): Z96.642 - Presence of left artificial hip joint (2) Osteoarthritis SNOMED Code(s): 309871109 Code(s): M19.90 - UNSPECIFIED OSTEOARTHRITIS, UNSPECIFIED SITE Priority: High Current Visit: Yes Qualifiers: Osteoarthritis location: hip Osteoarthritis type: primary Laterality: left Qualified Code(s): M16.12 - Unilateral primary osteoarthritis, left hip (3) A-fib SNOMED Code(s): 53584085 Code(s): I48.91 - UNSPECIFIED ATRIAL FIBRILLATION Priority: Medium Current Visit: Yes Qualifiers: Atrial fibrillation type: chronic Qualified Code(s): I48.2 - Chronic atrial fibrillation (4) MESHA on CPAP SNOMED Code(s): 59697372 Code(s): G47.33 - OBSTRUCTIVE SLEEP APNEA (ADULT) (PEDIATRIC); Z99.89 - DEPENDENCE ON OTHER ENABLING MACHINES AND DEVICES Priority: Medium Current Visit: Yes (5) CHF (congestive heart failure) SNOMED Code(s): 52032159 Code(s): I50.9 - HEART FAILURE, UNSPECIFIED Priority: Medium Current Visit: No Qualifiers: Heart failure type: unspecified Heart failure chronicity: unspecified Qualified Code(s): I50.9 - Heart failure, unspecified (6) HTN (hypertension) SNOMED Code(s): 49172312 Code(s): I10 - ESSENTIAL (PRIMARY) HYPERTENSION Priority: Medium Current Visit: No Qualifiers: Hypertension type: unspecified Qualified Code(s): I10 - Essential (primary ) hypertension (7) Urinary incontinence SNOMED Code(s): 893568047 Code(s): R32 - UNSPECIFIED URINARY INCONTINENCE Priority: Low Current Visit: No Qualifiers: Urinary Incontinence type: unspecified incontinence Qualified Code(s): R32 - Unspecified urinary incontinence (8) Osteoporosis SNOMED Code(s): 38179949 Code(s): M81.0 - AGE-RELATED OSTEOPOROSIS W/O CURRENT PATHOLOGICAL FRACTURE Priority: Medium Current Visit: No Qualifiers: Osteoporosis type: unspecified Presence of current pathological fracture: unspecified Qualified Code(s): M81.0 - Age-related osteoporosis without current pathological fracture (9) History of TIA (transient ischemic attack) SNOMED Code(s): 861404530 Code(s): Z86.73 - PRSNL HX OF TIA (TIA), AND CEREB INFRC W/O RESID DEFICITS Priority: Low Current Visit: No (10) Hypothyroidism SNOMED Code(s): 38588630 Code(s): E03.9 - HYPOTHYROIDISM, UNSPECIFIED Priority: Low Current Visit : No Qualifiers: Hypothyroidism type: unspecified Qualified Code(s): E03.9 - Hypothyroidism , unspecified (11) Type II diabetes mellitus SNOMED Code(s): 63083373 Code(s): E11.9 - TYPE 2 DIABETES MELLITUS WITHOUT COMPLICATIONS Priority: Low Current Visit: Yes Qualifiers: Diabetes mellitus fpc insulin use: without termite control representative use Diabetes mellitus complication status: without complication Qualified Code(s): E11.9 - Type 2 diabetes mellitus without complications (12) Gastroesophageal reflux disease SNOMED Code(s): 424707970 Code(s): K21.9 - GASTRO-ESOPHAGEAL REFLUX DISEASE WITHOUT ESOPHAGITIS Priority: Low Current Visit: No Qualifiers: Esophagitis presence: esophagitis presence not specified Qualified Code(s) : K21.9 - Gastro-esophageal reflux disease without esophagitis Problem List Initiated/Reviewed/Updated: Yes Plan: I/P: Acute: S/P left total hip arthroplasty - post-operative day 0 -DVT prophylaxis and pain management per primary care team -PT/OT -IS/RT -Monitor oxygen saturation -Titrate oxygen as needed -Vital signs stable -Monitor labs -Pre-operative Hgb was 15.0 -Pre-operative GFR was 51 -A1C was 6.1% Osteoarthritis of left hip -Pain management per primary care team Chronic: A-fib HLD CHF MESHA metabolic syndrome HTN GERD Hypothyroid osteoporosis "Pre-dibaetic" Hx/o lumbar spine surgery anxiety depression urinary incontinence OA Hx/o TIA Plan: CM for discharge planning GI prophylaxis Home medications as indicated Other orders as listed above Routine AM labs She is a full code. Her PCP is Dr. Carlson. Thank you for allowing us to participate in the care of this patient!! Requesting Provider: Dr. Thomas Date Consult Requested: 02/07/18 Reason for Consult: Post-operative medical management Patient History Reviewed: Yes Admission H&P Reviewed: Yes Time Spent (in minutes): 40
[2018-02-07] MEDS: Loratadine 10 MG Tab PO SCH (12:50)
[2018-02-07] MEDS: ceFAZolin 2 GM in Premix Bag 1 BAG IV SCH ×2 (13:27→21:11)
[2018-02-07] MEDS: buPROPion 150 MG Tab.ER PO SCH (14:22)
[2018-02-07] MEDS: Furosemide 20 MG Tab PO SCH (14:22)
[2018-02-07] MEDS: Famotidine 20 MG Tab PO SCH ×2 (14:22→18:07)
[2018-02-07] MEDS ORDERED: Simvastatin 10 MG Tab PO SCH (21:00)
[2018-02-07] MEDS: Acetaminophen/oxyCODONE 325-5 MG Tab PO PRN (21:09)
[2018-02-07] MEDS: Docusate Sodium 100 MG Cap PO SCH (21:09)
[2018-02-07] MEDS: Losartan 25 MG Tab PO SCH (21:10)
[2018-02-07] MEDS: Denosumab 60 MG/1 ML Syringe SCH ×2 (22:05→22:06)
[2018-02-08] MEDS: Acetaminophen/oxyCODONE 325-5 MG Tab PO PRN ×2 (04:03→10:54)
[2018-02-08] MEDS ORDERED: Levothyroxine 112 MCG Tab PO SCH (06:00)
--- NOTE | 2018-02-08 06:15 | PCM.CONSN ---
- General Info Date of Service: 02/08/18 Admission Dx/Problem (Free Text): Admission Diagnosis/Problem Admission Diagnosis/Problem Osteoarthritis of hip Subjective Update: In to see Catherine. She is sitting in the chair watching TV. Earlier in the AM nursing reported patient has been somewhat hypotensive with minimal urine output. 250mL fluid bolus given with good response. Labs look good. Vital signs look good. She has urinated this AM. She has been working with PT/OT. She has no concerns or complaints. No nursing concerns. Functional Status: Reports: Pain Controlled, Tolerating Diet, Ambulating, Urinating, Incentive Spirometry. Denies: New Symptoms - Review of Systems General: Reports: No Symptoms HEENT: Reports: No Symptoms Pulmonary: Reports: No Symptoms Cardiovascular: Reports: No Symptoms Gastrointestinal: Reports: No Symptoms Genitourinary: Reports: No Symptoms Musculoskeletal: Reports: Leg Pain Skin: Reports: No Symptoms Neurological: Reports: No Symptoms Psychiatric: Reports: No Symptoms - Patient Data Vitals - Most Recent: Last Vital Signs Temp 96.6 F 02/08/18 03:53 Pulse 72 02/08/18 03:53 Resp 16 02/08/18 03:53 BP 94/47 L 02/08/18 03:53 Pulse Ox 98 02/08/18 03:53 Weight - Most Recent: 127 lb 1.6 oz I&O - Last 24 Hours: Intake & Output 02/07/18 02/07/18 02/08/18 14:59 22:59 06:59 Intake Total 100 1550 850 Output Total 250 550 100 Balance -150 1000 750 Lab Results Last 24 Hours: Laboratory Results - last 24 hr 02/07/18 Range/Units 06:53 Blood Type A POSITIVE Gel Antibody Screen Negative Med Orders - Current: Current Medications Apixaban (Eliquis) 5 mg PO BID [facility] Aspirin (Halfprin) 81 mg PO DAILY [facility] Bisacodyl (Dulcolax) 5 mg PO DAILY PRN PRN Reason: Constipation Bupropion HCl (Wellbutrin Xl) 150 mg PO DAILY [facility] Last Admin: 02/07/18 14:22 Dose: Not Given Cholecalciferol (Vitamin D3) 5,000 unit PO DAILY [facility] Cyclobenzaprine HCl (Flexeril) 10 mg PO TID PRN PRN Reason: Spasms Diclofenac Sodium (Voltaren 1% Gel) 2 gm TOP ASDIRECTED PRN PRN Reason: Pain Docusate Sodium (Colace) 100 mg PO BID [facility] Last Admin: 02/07/18 21:09 Dose: 100 mg Famotidine (Pepcid) 20 mg PO Q12H [facility] Last Admin: 02/07/18 18:07 Dose: 20 mg Furosemide (Lasix) 20 mg PO DAILY [facility] Last Admin: 02/07/18 14:22 Dose: Not Given Cefazolin Sodium/Dextrose 2 gm (/ Premix) 50 mls @ 100 mls/hr IV Q8H [facility] Stop: 02/08/18 06:29 Last Admin: 02/07/18 21:11 Dose: 100 mls/hr Ketorolac Tromethamine (Toradol) 15 mg IVPUSH Q6H PRN PRN Reason: Pain Levothyroxine Sodium (Levothyroxine) 112 mcg PO ACBREAKFAST [facility] Loratadine (Claritin) 10 mg PO DAILY@1200 [facility] Last Admin: 02/07/18 12:50 Dose: Not Given Losartan Potassium (Cozaar) 50 mg PO BID [facility] Last Admin: 02/07/18 21:10 Dose: Not Given Magnesium Hydroxide (Milk Of Magnesia) 30 ml PO BID PRN PRN Reason: Constipation Morphine Sulfate (Morphine) 2 mg IVPUSH Q2H PRN PRN Reason: Breakthrough Pain Nadolol (Naldol) 40 mg PO DAILY [facility] Naloxone HCl (Narcan) 0.1 mg IVPUSH Q5M PRN PRN Reason: Oversedation Ondansetron HCl (Zofran) 4 mg IVPUSH Q6H PRN PRN Reason: Nausea/Vomiting Oxycodone/Acetaminophen (Percocet 325-5 Mg) 1 - 2 tab PO Q4H PRN PRN Reason: Pain Last Admin: 02/08/18 04:03 Dose: 1 tab Zaditor(Ketotifen Fumarate) Opth Solution 0 each EYEBOTH Q4H PRN PRN Reason: Allergies Senna (Senna) 8.6 mg PO BID PRN PRN Reason: Constipation Simvastatin (Zocor) 10 mg PO BEDTIME [facility] Last Admin: 02/07/18 21:10 Dose: 10 mg Sodium Chloride (Saline Flush) 10 ml FLUSH ASDIRECTED PRN PRN Reason: Keep Vein Open Discontinued Medications Bupivacaine HCl (Marcaine 0.25%) Confirm Administered Dose 30 ml .ROUTE .STK- MED ONE Stop: 02/07/18 06:36 Last Admin: 02/07/18 08:39 Dose: 30 ml Bupivacaine HCl (Sensorcaine-Mpf 0.75%) Confirm Administered Dose 30 ml .ROUTE .STK-MED ONE Stop: 02/07/18 06:36 Bupivacaine HCl (Marcaine 0.25%) Confirm Administered Dose 30 ml .ROUTE .STK- MED ONE Stop: 02/07/18 07:11 Cefazolin Sodium (Ancef) Confirm Administered Dose 2 gm .ROUTE .STK-MED ONE Stop: 02/07/18 06:36 Last Admin: 02/07/18 08:34 Dose: 2 gm Cefazolin Sodium (Ancef) Confirm Administered Dose 2 gm .ROUTE .STK-MED ONE Stop: 02/07/18 06:41 Morphine Sulfate 8 mg/Epinephrine HCl 0.3 mg/Cefuroxime Sodium 750 mg/Ketorolac Tromethamine 30 mg/Sodium Chloride 27.9 ml 0 mg .XX ONETIME ONE Stop: 02/07/18 06:32 Last Admin: 02/07/18 08:40 Dose: 788.3 mg Denosumab (Prolia) 60 mg .XX Q6M [facility] Last Admin: 02/07/18 22:06 Dose: Not Given Diphenhydramine HCl (Benadryl) 25 mg IVPUSH Q6H PRN PRN Reason: Pruritis Stop: 02/07/18 16:00 Ephedrine Sulfate (Ephedrine In Ns) Confirm Administered Dose 25 mg .ROUTE .STK- MED ONE Stop: 02/07/18 08:07 Fentanyl (Sublimaze) Confirm Administered Dose 100 mcg .ROUTE .STK-MED ONE Stop: 02/07/18 06:31 Fentanyl (Sublimaze) 50 mcg IVPUSH Q5M PRN PRN Reason: Pain Stop: 02/07/18 09:17 Lactated Ringer's (Ringers, Lactated) 1,000 mls @ 125 mls/hr IV ASDIRECTED [facility] Last Admin: 02/07/18 06:50 Dose: 125 mls/hr Lactated Ringer's (Ringers, Lactated) Confirm Administered Dose 1,000 mls @ as directed .ROUTE .STK-MED ONE Stop: 02/07/18 08:56 Lidocaine HCl (Xylocaine-Mpf 1%) 5 ml .ROUTE .STK-MED ONE Stop: 02/07/18 06:36 Lidocaine/Sodium Bicarbonate (Buffered Lidocaine 1% In Ns 8.4%) 0.25 ml IDERM ONETIME PRN PRN Reason: Prior to IV Start Last Admin: 02/07/18 06:49 Dose: 0.25 ml Meperidine HCl (Meperidine) 12.5 mg IVPUSH ONETIME PRN PRN Reason: Shivering Stop: 02/07/18 16:00 Morphine Sulfate (Duramorph Pf) Confirm Administered Dose 10 mg .ROUTE .STK-MED ONE Stop: 02/07/18 06:35 Ondansetron HCl (Zofran) Confirm Administered Dose 4 mg .ROUTE .STK-MED ONE Stop: 02/07/18 06:36 Ondansetron HCl (Zofran) 4 mg IVPUSH ONETIME PRN PRN Reason: Nausea/Vomiting Stop: 02/07/18 16:00 Propofol (Diprivan 20 Ml) Confirm Administered Dose 400 mg .ROUTE .STK-MED ONE Stop: 02/07/18 06:30 Tranexamic Acid (Cyklokapron) Confirm Administered Dose 1,000 mg .ROUTE .STK- MED ONE Stop: 02/07/18 06:36 Last Admin: 02/07/18 08:41 Dose: 1,000 mg Vancomycin HCl (Vancomycin) Confirm Administered Dose 1 gm .ROUTE .STK-MED ONE Stop: 02/07/18 06:36 Last Admin: 02/07/18 08:41 Dose: 1 gm - Exam Quality Assessment: DVT Prophylaxis. No: Supplemental Oxygen, Urine Catheter General: Alert, Oriented, Cooperative, No Acute Distress HEENT: Pupils Equal, Pupils Reactive, EOMI, Mucous Membr. Moist/[place] Neck: Supple Lungs: Clear to Auscultation, Normal Respiratory Effort Cardiovascular: Regular Rate, Irregular Rhythm GI/Abdominal Exam: Normal Bowel Sounds, Soft, Non-Tender, No Distention, No Abnormal Bruit Back Exam: Normal Inspection, Full Range of Motion Extremities: No Pedal Edema, Normal Capillary Refill, Leg Pain, Limited Range of Motion, Other (Bandage in place on right leg. ) Peripheral Pulses: 2+: Radial (L), Radial (R), Dorsalis Pedis (L), Dorsalis Pedis (R) Skin: Warm, Dry, Intact Wound/Incisions: Dressing Dry and Intact, No Drainage Neurological: No New Focal Deficit Psy/Mental Status: Alert, Normal Affect, Normal Mood Consult PN Assessment/Plan POD#: 1 Procedures: Procedures APPLY FOREARM SPLINT (09/17/16) ASSAY OF LIPASE (07/03/16) ASSAY OF TROPONIN QUANT (07/03/16) CARDIOVASCULAR STRESS TEST (08/12/15) CHEST X-RAY 2VW FRONTAL&LATL (07/03/16) COMP SCREEN MAMMOGRAM ADD-ON (02/19/16) COMPLETE CBC W/AUTO DIFF WBC (08/18/16) COMPREHEN METABOLIC PANEL (08/18/16) CONTRST X-RAY UPPR GI TRACT (08/18/16) CT ABD & PELVIS W/O CONTRAST (08/18/16) CULTURE SCREEN ONLY (12/03/14) DXA BONE DENSITY AXIAL (08/10/16) ECG MONIT/REPRT UP TO 48 HRS (05/23/15) ECG MONIT/REPRT UP TO 48 HRS (05/23/15) EGD BIOPSY SINGLE/MULTIPLE (08/10/16) ELECTROCARDIOGRAM TRACING (07/03/16) EMERGENCY DEPT VISIT (09/17/16) EMERGENCY DEPT VISIT (08/18/16) EMERGENCY DEPT VISIT (07/03/16) EVALUATION OF WHEEZING (05/23/15) HT MUSCLE IMAGE SPECT MULT (08/12/15) HYDRATE IV INFUSION ADD-ON (08/18/16) OFFICE/OUTPATIENT VISIT EST (12/03/14) PROTHROMBIN TIME (08/18/16) ROUTINE VENIPUNCTURE (08/18/16) STREP A AG IA (12/03/14) THER/PROPH/DIAG INJ IV PUSH (08/18/16) THROMBOPLASTIN TIME PARTIAL (08/18/16) TISSUE EXAM BY PATHOLOGIST (08/10/16) TX/PRO/DX INJ NEW DRUG ADDON (08/18/16) URINALYSIS AUTO W/SCOPE (08/18/16) X-RAY EXAM OF HAND (09/17/16) X-RAY EXAM OF WRIST (09/17/16) (1) S/P total hip arthroplasty SNOMED Code(s): 490061121550, 460886949961 Code(s): Z96.649 - PRESENCE OF UNSPECIFIED ARTIFICIAL HIP JOINT Priority: High Current Visit: Yes Qualifiers: Laterality: left Qualified Code(s): Z96.642 - Presence of left artificial hip joint (2) Osteoarthritis SNOMED Code(s): 400822745 Code(s): M19.90 - UNSPECIFIED OSTEOARTHRITIS, UNSPECIFIED SITE Priority: High Current Visit: Yes Qualifiers: Osteoarthritis location: hip Osteoarthritis type: primary Laterality: left Qualified Code(s): M16.12 - Unilateral primary osteoarthritis, left hip (3) A-fib SNOMED Code(s): 35879048 Code(s): I48.91 - UNSPECIFIED ATRIAL FIBRILLATION Priority: Medium Current Visit: Yes Qualifiers: Atrial fibrillation type: chronic Qualified Code(s): I48.2 - Chronic atrial fibrillation (4) MESHA on CPAP SNOMED Code(s): 07845086 Code(s): G47.33 - OBSTRUCTIVE SLEEP APNEA (ADULT) (PEDIATRIC); Z99.89 - DEPENDENCE ON OTHER ENABLING MACHINES AND DEVICES Priority: Medium Current Visit: Yes (5) CHF (congestive heart failure) SNOMED Code(s): 73904557 Code(s): I50.9 - HEART FAILURE, UNSPECIFIED Priority: Medium Current Visit: No Qualifiers: Heart failure type: unspecified Heart failure chronicity: unspecified Qualified Code(s): I50.9 - Heart failure, unspecified (6) HTN (hypertension) SNOMED Code(s): 61282897 Code(s): I10 - ESSENTIAL (PRIMARY) HYPERTENSION Priority: Medium Current Visit: No Qualifiers: Hypertension type: unspecified Qualified Code(s): I10 - Essential (primary ) hypertension (7) Urinary incontinence SNOMED Code(s): 724112650 Code(s): R32 - UNSPECIFIED URINARY INCONTINENCE Priority: Low Current Visit: No Qualifiers: Urinary Incontinence type: unspecified incontinence Qualified Code(s): R32 - Unspecified urinary incontinence (8) Osteoporosis SNOMED Code(s): 87979828 Code(s): M81.0 - AGE-RELATED OSTEOPOROSIS W/O CURRENT PATHOLOGICAL FRACTURE Priority: Medium Current Visit: No Qualifiers: Osteoporosis type: unspecified Presence of current pathological fracture: unspecified Qualified Code(s): M81.0 - Age-related osteoporosis without current pathological fracture (9) History of TIA (transient ischemic attack) SNOMED Code(s): 107113974 Code(s): Z86.73 - PRSNL HX OF TIA (TIA), AND CEREB INFRC W/O RESID DEFICITS Priority: Low Current Visit: No (10) Hypothyroidism SNOMED Code(s): 24075211 Code(s): E03.9 - HYPOTHYROIDISM, UNSPECIFIED Priority: Low Current Visit : No Qualifiers: Hypothyroidism type: unspecified Qualified Code(s): E03.9 - Hypothyroidism , unspecified (11) Type II diabetes mellitus SNOMED Code(s): 92031231 Code(s): E11.9 - TYPE 2 DIABETES MELLITUS WITHOUT COMPLICATIONS Priority: Low Current Visit: Yes Qualifiers: Diabetes mellitus exterminator insulin use: without exterminator use Diabetes mellitus complication status: without complication Qualified Code(s): E11.9 - Type 2 diabetes mellitus without complications (12) Gastroesophageal reflux disease SNOMED Code(s): 281296166 Code(s): K21.9 - GASTRO-ESOPHAGEAL REFLUX DISEASE WITHOUT ESOPHAGITIS Priority: Low Current Visit: No Qualifiers: Esophagitis presence: esophagitis presence not specified Qualified Code(s) : K21.9 - Gastro-esophageal reflux disease without esophagitis Problem List Initiated/Reviewed/Updated: Yes My Orders Last 24 Hours: My Active Orders 02/07/18 10:54 CPAP Noctural Home [RT BiPAP/CPAP] [RC] ASDIRECTED Plan: I/P: Acute: S/P left total hip arthroplasty - post-operative day 1 -DVT prophylaxis and pain management per primary care team -PT/OT -IS/RT -Monitor oxygen saturation -Titrate oxygen as needed -Vital signs stable -Monitor labs -Pre-operative Hgb was 15.0; now 10.7 -Pre-operative GFR was 51; now 54 -A1C was 6.1% Osteoarthritis of left hip -Pain management per primary care team Post-operative hypotension -250mL Fluid bolus given with good response -Urine output increased Chronic: A-fib HLD CHF MESHA metabolic syndrome HTN GERD Hypothyroid osteoporosis "Pre-dibaetic" Hx/o lumbar spine surgery anxiety depression urinary incontinence OA Hx/o TIA Plan: CM for discharge planning GI prophylaxis Home medications as indicated Other orders as listed above Routine AM labs She is a full code. Her PCP is Dr. Carlson. From a hospitalist standpoint Catherine is doing quite well. Labs look good. She has been up working with PT/OT. She has urinated. Vital signs look good. Pain is controlled. She is cleared for discharge pending primary care team and PT/OT agreement. Thank you for allowing us to participate in the care of this patient!!
[2018-02-08] MEDS: ceFAZolin 2 GM in Premix Bag 1 BAG IV SCH (06:20)
[2018-02-08] MEDS: Famotidine 20 MG Tab PO SCH (06:20)
[2018-02-08] MEDS ORDERED: Sodium Chloride 0.9% 250 ML IV ONE (06:30)
--- NOTE | 2018-02-08 07:36 | PCM.SURGPN ---
- General Info Date of Service: 02/08/18 POD#: 1 Functional Status: Reports: Pain Controlled, Tolerating Diet, Ambulating, Urinating, Incentive Spirometry - Patient Data Vitals - Most Recent: Last Vital Signs Temp 96.6 F 02/08/18 03:53 Pulse 72 02/08/18 03:53 Resp 16 02/08/18 03:53 BP 94/47 L 02/08/18 03:53 Pulse Ox 98 02/08/18 03:53 Weight - Most Recent: 127 lb 1.6 oz I&O - Last 24 Hours: Intake & Output 02/07/18 02/08/18 02/08/18 22:59 06:59 14:59 Intake Total 1550 850 Output Total 550 100 Balance 1000 750 Lab Results Last 24 Hrs: Laboratory Results - last 24 hr 02/07/18 02/08/18 Range/Units 06:53 06:15 WBC 6.32 (3.98-10.04) K/mm3 RBC 3.42 L (3.98-5.22) M/mm3 Hgb 10.7 L (11.2-15.7) gm/L Hct 32.8 L (34.1-44.9) % MCV 95.9 H (79.4-94.8) fl MCH 31.3 (25.6-32.2) pg MCHC 32.6 (32.2-35.5) g/dl RDW Std Deviation 50.0 H (36.4-46.3) fL Plt Count 128 L (182-369) K/mm3 MPV 12.8 H (9.4-12.3) fl Blood Type A POSITIVE Gel Antibody Screen Negative Med Orders - Current: Current Medications Apixaban (Eliquis) 5 mg PO BID [facility] Aspirin (Halfprin) 81 mg PO DAILY [facility] Bisacodyl (Dulcolax) 5 mg PO DAILY PRN PRN Reason: Constipation Bupropion HCl (Wellbutrin Xl) 150 mg PO DAILY [facility] Last Admin: 02/07/18 14:22 Dose: Not Given Cholecalciferol (Vitamin D3) 5,000 unit PO DAILY [facility] Cyclobenzaprine HCl (Flexeril) 10 mg PO TID PRN PRN Reason: Spasms Diclofenac Sodium (Voltaren 1% Gel) 2 gm TOP ASDIRECTED PRN PRN Reason: Pain Docusate Sodium (Colace) 100 mg PO BID [facility] Last Admin: 02/07/18 21:09 Dose: 100 mg Famotidine (Pepcid) 20 mg PO Q12H [facility] Last Admin: 02/08/18 06:20 Dose: 20 mg Furosemide (Lasix) 20 mg PO DAILY [facility] Last Admin: 02/07/18 14:22 Dose: Not Given Ketorolac Tromethamine (Toradol) 15 mg IVPUSH Q6H PRN PRN Reason: Pain Levothyroxine Sodium (Levothyroxine) 112 mcg PO ACBREAKFAST [facility] Last Admin: 02/08/18 06:20 Dose: 112 mcg Loratadine (Claritin) 10 mg PO DAILY@1200 [facility] Last Admin: 02/07/18 12:50 Dose: Not Given Losartan Potassium (Cozaar) 50 mg PO BID [facility] Last Admin: 02/07/18 21:10 Dose: Not Given Magnesium Hydroxide (Milk Of Magnesia) 30 ml PO BID PRN PRN Reason: Constipation Morphine Sulfate (Morphine) 2 mg IVPUSH Q2H PRN PRN Reason: Breakthrough Pain Nadolol (Naldol) 40 mg PO DAILY [facility] Naloxone HCl (Narcan) 0.1 mg IVPUSH Q5M PRN PRN Reason: Oversedation Ondansetron HCl (Zofran) 4 mg IVPUSH Q6H PRN PRN Reason: Nausea/Vomiting Oxycodone/Acetaminophen (Percocet 325-5 Mg) 1 - 2 tab PO Q4H PRN PRN Reason: Pain Last Admin: 02/08/18 04:03 Dose: 1 tab Zaditor(Ketotifen Fumarate) Opth Solution 0 each EYEBOTH Q4H PRN PRN Reason: Allergies Senna (Senna) 8.6 mg PO BID PRN PRN Reason: Constipation Simvastatin (Zocor) 10 mg PO BEDTIME [facility] Last Admin: 02/07/18 21:10 Dose: 10 mg Sodium Chloride (Saline Flush) 10 ml FLUSH ASDIRECTED PRN PRN Reason: Keep Vein Open Discontinued Medications Bupivacaine HCl (Marcaine 0.25%) Confirm Administered Dose 30 ml .ROUTE .STK- MED ONE Stop: 02/07/18 06:36 Last Admin: 02/07/18 08:39 Dose: 30 ml Bupivacaine HCl (Sensorcaine-Mpf 0.75%) Confirm Administered Dose 30 ml .ROUTE .STK-MED ONE Stop: 02/07/18 06:36 Bupivacaine HCl (Marcaine 0.25%) Confirm Administered Dose 30 ml .ROUTE .STK- MED ONE Stop: 02/07/18 07:11 Cefazolin Sodium (Ancef) Confirm Administered Dose 2 gm .ROUTE .STK-MED ONE Stop: 02/07/18 06:36 Last Admin: 02/07/18 08:34 Dose: 2 gm Cefazolin Sodium (Ancef) Confirm Administered Dose 2 gm .ROUTE .STK-MED ONE Stop: 02/07/18 06:41 Morphine Sulfate 8 mg/Epinephrine HCl 0.3 mg/Cefuroxime Sodium 750 mg/Ketorolac Tromethamine 30 mg/Sodium Chloride 27.9 ml 0 mg .XX ONETIME ONE Stop: 02/07/18 06:32 Last Admin: 02/07/18 08:40 Dose: 788.3 mg Denosumab (Prolia) 60 mg .XX Q6M [facility] Last Admin: 02/07/18 22:06 Dose: Not Given Diphenhydramine HCl (Benadryl) 25 mg IVPUSH Q6H PRN PRN Reason: Pruritis Stop: 02/07/18 16:00 Ephedrine Sulfate (Ephedrine In Ns) Confirm Administered Dose 25 mg .ROUTE .STK- MED ONE Stop: 02/07/18 08:07 Fentanyl (Sublimaze) Confirm Administered Dose 100 mcg .ROUTE .STK-MED ONE Stop: 02/07/18 06:31 Fentanyl (Sublimaze) 50 mcg IVPUSH Q5M PRN PRN Reason: Pain Stop: 02/07/18 09:17 Lactated Ringer's (Ringers, Lactated) 1,000 mls @ 125 mls/hr IV ASDIRECTED [facility] Last Admin: 02/07/18 06:50 Dose: 125 mls/hr Cefazolin Sodium/Dextrose 2 gm (/ Premix) 50 mls @ 100 mls/hr IV Q8H [facility] Stop: 02/08/18 06:29 Last Admin: 02/08/18 06:20 Dose: 100 mls/hr Lactated Ringer's (Ringers, Lactated) Confirm Administered Dose 1,000 mls @ as directed .ROUTE .STK-MED ONE Stop: 02/07/18 08:56 Sodium Chloride (Normal Saline) 250 mls @ 249.723 mls/hr IV ONETIME ONE Stop: 02/08/18 07:30 Last Admin: 02/08/18 06:53 Dose: 249.723 mls/hr Lidocaine HCl (Xylocaine-Mpf 1%) 5 ml .ROUTE .STK-MED ONE Stop: 02/07/18 06:36 Lidocaine/Sodium Bicarbonate (Buffered Lidocaine 1% In Ns 8.4%) 0.25 ml IDERM ONETIME PRN PRN Reason: Prior to IV Start Last Admin: 02/07/18 06:49 Dose: 0.25 ml Meperidine HCl (Meperidine) 12.5 mg IVPUSH ONETIME PRN PRN Reason: Shivering Stop: 02/07/18 16:00 Morphine Sulfate (Duramorph Pf) Confirm Administered Dose 10 mg .ROUTE .STK-MED ONE Stop: 02/07/18 06:35 Ondansetron HCl (Zofran) Confirm Administered Dose 4 mg .ROUTE .STK-MED ONE Stop: 02/07/18 06:36 Ondansetron HCl (Zofran) 4 mg IVPUSH ONETIME PRN PRN Reason: Nausea/Vomiting Stop: 02/07/18 16:00 Propofol (Diprivan 20 Ml) Confirm Administered Dose 400 mg .ROUTE .STK-MED ONE Stop: 02/07/18 06:30 Tranexamic Acid (Cyklokapron) Confirm Administered Dose 1,000 mg .ROUTE .STK- MED ONE Stop: 02/07/18 06:36 Last Admin: 02/07/18 08:41 Dose: 1,000 mg Vancomycin HCl (Vancomycin) Confirm Administered Dose 1 gm .ROUTE .STK-MED ONE Stop: 02/07/18 06:36 Last Admin: 02/07/18 08:41 Dose: 1 gm - Exam Wound/Incisions: Dressing Dry and Intact General: Alert, Cooperative, No Acute Distress Lungs: Normal Respiratory Effort Extremities: Other (NVS intact for LLE. Vangie's negative. Left thigh soft.) - Problem List Review Problem List Initiated/Reviewed/Updated: Yes - My Orders Last 24 Hours: Active Orders 24 hr Category Date Time Status CPAP Noctural Home [RT BiPAP/CPAP] [RC] ASDIRECTED Care 02/07/18 10:54 Active Communication Order [RC] ASDIRECTED Care 02/07/18 09:15 Active Notify Provider Consults [RC] ASDIRECTED Care 02/07/18 06:35 Active Notify Provider [RC] ASDIRECTED Care 02/07/18 09:16 Active Pulse Oximetry [RC] ASDIRECTED Care 02/07/18 09:16 Active Ready for Discharge [RC] PER UNIT ROUTINE Care 02/08/18 07:34 Ordered Regular Diet [DIET] Diet 02/07/18 Lunch Active COMPREHENSIVE METABOLIC PN,CMP [CHEM] AM Lab 02/08/18 06:15 Received Apixaban [Eliquis] Med 02/08/18 09:00 Active 5 mg PO BID Aspirin [Halfprin] Med 02/08/18 09:00 Active 81 mg PO DAILY Cholecalciferol (Vitamin D3) [Vitamin D3] Med 02/08/18 09:00 Active 5,000 unit PO DAILY Diclofenac Sodium [Voltaren 1% Gel] Med 02/07/18 10:17 Active 2 gm TOP ASDIRECTED PRN Docusate Sodium [Colace] Med 02/07/18 21:00 Active 100 mg PO BID Famotidine [Pepcid] Med 02/07/18 07:00 Active 20 mg PO Q12H Furosemide [Lasix] Med 02/07/18 10:17 Active 20 mg PO DAILY Levothyroxine Med 02/08/18 06:00 Active 112 mcg PO ACBREAKFAST Loratadine [Claritin] Med 02/07/18 12:00 Active 10 mg PO DAILY@1200 Losartan [Cozaar] Med 02/07/18 21:00 Active 50 mg PO BID Nadolol [Naldol] Med 02/08/18 09:00 Active 40 mg PO DAILY Patient's Own Medication [Ptom] Med 02/07/18 10:17 Active 0 each EYEBOTH Q4H PRN Simvastatin [Zocor] Med 02/07/18 21:00 Active 10 mg PO BEDTIME buPROPion [Wellbutrin XL] Med 02/07/18 10:17 Active 150 mg PO DAILY Pulse Oximetry Continuous Monitoring [OM.PC] Routine Oth 02/07/18 09:16 Active Medication Orders Apixaban (Eliquis) 5 mg PO BID [facility] Aspirin (Halfprin) 81 mg PO DAILY [facility] Bisacodyl (Dulcolax) 5 mg PO DAILY PRN PRN Reason: Constipation Bupropion HCl (Wellbutrin Xl) 150 mg PO DAILY [facility] Last Admin: 02/07/18 14:22 Dose: Cholecalciferol (Vitamin D3) 5,000 unit PO DAILY [facility] Cyclobenzaprine HCl (Flexeril) 10 mg PO TID PRN PRN Reason: Spasms Diclofenac Sodium (Voltaren 1% Gel) 2 gm TOP ASDIRECTED PRN PRN Reason: Pain Docusate Sodium (Colace) 100 mg PO BID [facility] Last Admin: 02/07/18 21:09 Dose: 100 mg Famotidine (Pepcid) 20 mg PO Q12H [facility] Last Admin: 02/08/18 06:20 Dose: 20 mg Admin: 02/07/18 18:07 Dose: 20 mg Admin: 02/07/18 14:22 Dose: Furosemide (Lasix) 20 mg PO DAILY [facility] Last Admin: 02/07/18 14:22 Dose: Ketorolac Tromethamine (Toradol) 15 mg IVPUSH Q6H PRN PRN Reason: Pain Levothyroxine Sodium (Levothyroxine) 112 mcg PO ACBREAKFAST [facility] Last Admin: 02/08/18 06:20 Dose: 112 mcg Loratadine (Claritin) 10 mg PO DAILY@1200 [facility] Last Admin: 02/07/18 12:50 Dose: Not Given Losartan Potassium (Cozaar) 50 mg PO BID [facility] Last Admin: 02/07/18 21:10 Dose: Magnesium Hydroxide (Milk Of Magnesia) 30 ml PO BID PRN PRN Reason: Constipation Morphine Sulfate (Morphine) 2 mg IVPUSH Q2H PRN PRN Reason: Breakthrough Pain Nadolol (Naldol) 40 mg PO DAILY [facility] Naloxone HCl (Narcan) 0.1 mg IVPUSH Q5M PRN PRN Reason: Oversedation Ondansetron HCl (Zofran) 4 mg IVPUSH Q6H PRN PRN Reason: Nausea/Vomiting Oxycodone/Acetaminophen (Percocet 325-5 Mg) 1 - 2 tab PO Q4H PRN PRN Reason: Pain Last Admin: 02/08/18 04:03 Dose: 1 tab Admin: 02/07/18 21:09 Dose: 1 tab Zaditor(Ketotifen Fumarate) Opth Solution 0 each EYEBOTH Q4H PRN PRN Reason: Allergies Senna (Senna) 8.6 mg PO BID PRN PRN Reason: Constipation Simvastatin (Zocor) 10 mg PO BEDTIME JUST[facility] Last Admin: 02/07/18 21:10 Dose: 10 mg Sodium Chloride (Saline Flush) 10 ml FLUSH ASDIRECTED PRN PRN Reason: Keep Vein Open - Assessment Assessment (Free Text/Narrative):: POD#1 - left ИРИНА - Plan Plan (Free Text/Narrative):: 1. Discharge home today if therapy goals met and cleared by Hospitalist service. 2. Hgb 10.7. 3. ИРИНА precautions. 4. Resume use of Eliquis BID. 5. Follow-up at outpatient Clinic. The pt's case was discussed with Dr. Thomas.
[2018-02-08] MEDS: buPROPion 150 MG Tab.ER PO SCH (08:01)
[2018-02-08] MEDS: Furosemide 20 MG Tab PO SCH (08:03)
[2018-02-08] MEDS: Docusate Sodium 100 MG Cap PO SCH (08:18)
--- NOTE | 2018-02-08 08:46 | PCM48HPAN ---
Post Anesthesia Note - EVALUATION WITHIN 48HRS OF ANESTHETIC Vital Signs in Normal Range: Yes Patient Participated in Evaluation: Yes Respiratory Function Stable: Yes Airway Patent: Yes Cardiovascular Function Stable: Yes Hydration Status Stable: Yes Pain Control Satisfactory: Yes Nausea and Vomiting Control Satisfactory: Yes Mental Status Recovered: Yes - COMMENTS/OBSERVATIONS Free Text/Narrative:: Patient denied any anesthetic complications
[2018-02-08] MEDS ORDERED: Aspirin 81 MG Tab.EC PO SCH (09:00)
[2018-02-08] MEDS ORDERED: Apixaban 5 MG Tab PO SCH (09:00)
[2018-02-08] MEDS ORDERED: Cholecalciferol (Vitamin D3) 5,000 UNIT Tab PO SCH (09:00)
[2018-02-08] MEDS: Losartan 25 MG Tab PO SCH (09:19)
[2018-02-08 12:01] VITALS: BP 115/59
[2018-02-08] MEDS: Loratadine 10 MG Tab PO SCH (12:19)
--- NOTE | 2018-02-08 18:08 | PCM.DCSUM1 ---
Discharge Summary - Hospital Course Brief History: Catherine is a 77 yo female who underwent left ИРИНА with Dr. Thomas on . The procedure was completed under spinal anesthesia with MAC. The pt tolerated the procedure well and was admitted to the Medical-Surgical Unit. Medical management was provided by the Hospitalist service. The pt's Hospital course was remarkable for hypotension which improved with IV fluid bolus. The pt's Hgb on POD#1 was 10.7. On POD#1, the pt resumed use of Eliquis BID. SCDs and TEDs were ordered. A Mepilex dressing was placed at the incision site at the time of surgery and remained clean and dry. The pt participated in P.T. and O.T. and progressed well. She followed the ИРИНА precautions. The pt was allowed to WBAT. On POD#1, the pt was deemed appropriate to discharge to home. - Discharge Data Discharge Date: 02/08/18 Discharge Disposition: Home, Self-Care 01 Condition: Good - Patient Summary/Data Consults: Consultations 02/07/18 06:31 OT Evaluation and Treatment [CONS] Routine PT Evaluation and Treatment [CONS] Routine 02/07/18 06:32 Consult to Physician [CONS] Routine - Patient Instructions Diet: Usual Diet as Tolerated Activity: Apply Ice, As Tolerated, Elevate Extremity, Full Weight Bearing Activity, Other: follow total hip arthroplasty precautions Driving: Do Not Drive Showering/Bathing: May Shower Wound/Incision Care: Keep Operative Site/Wound Site Clean and Dry, Do NOT Change Dressing Notify Provider of: Fever, Increased Pain, Swelling and Redness, Drainage, Nausea and/or Vomiting Other/Special Instructions: Please get up and moving around EVERY HOUR while awake. This helps to prevent blood clots. Have help with mobility as needed. Please resume use of Eliquis - blood thinner medication. Please wear the GREY hose during the day and you may remove them at night. Please schedule for P.T. Complete the P.T. exercises and stretches that were instructed in the Hospital. Follow the total hip arthroplasty precautions. Please use the pain medication as needed. The medication may cause drowsiness and/or constipation. You could use a stool softener like docusate sodium or Colace 100mg twice daily and/or a laxative like Miralax daily for constipation. Contact your primary care provider for further instructions if you are constipated. Try to wean from use of the pain medication as soon as able. Please do not use other medications that may cause drowsiness (other pain medications, anxiety pills, sleeping pills, allergy medications that cause drowsiness) while using the pain medication. Please do not use alcohol while using the pain medication. Use the incentive spirometer often. Please place ice to the hip often. Please elevate the limb to decrease swelling. Keep the Mepilex dressing in place until follow-up. Please notify the Clinic if the dressing is saturated or rolls. Increase protein intake in your diet as this helps with healing. If you are a diabetic, please closely monitor your blood sugars and notify your primary care provider of your values. Elevated blood sugars increases the risk of infection. Please call [phone] with questions or concerns. - Discharge Plan *PRESCRIPTION DRUG MONITORING PROGRAM REVIEWED*: No *COPY OF PRESCRIPTION DRUG MONITORING REPORT IN PATIENT MARCOS: No Prescriptions/Med Rec: Acetaminophen/oxyCODONE [Percocet 325-5 MG] 1 - 2 tab PO Q6H PRN #60 tablet PRN Reason: Pain Home Medications: Home Meds Apixaban [Eliquis] 5 mg PO BID 07/03/16 [History] Aspirin [Halfprin] 81 mg PO DAILY 07/03/16 [History] Cholecalciferol (Vitamin D3) [Vitamin D] 5,000 unit PO DAILY 07/03/16 [History] Levothyroxine 112 mcg PO DAILY 07/03/16 [History] Losartan [Cozaar] 50 mg PO BID 07/03/16 [History] Nadolol [Corgard] 40 mg PO DAILY 07/03/16 [History] Denosumab [Prolia] 60 mg SQ Q6M 02/04/18 [History] Diclofenac Sodium 1 dose TOP ASDIRECTED PRN 02/04/18 [History] Fexofenadine [Emily] 180 mg PO DAILY PRN 02/04/18 [History] Furosemide 20 mg PO DAILY 02/04/18 [History] Ketotifen Fumarate [Allergy Eye Drops] 1 drop EYEBOTH Q4H PRN 02/04/18 [History] Simvastatin 10 mg PO DAILY 02/04/18 [History] buPROPion HCl [Wellbutrin Xl] 150 mg PO DAILY 02/04/18 [History] Acetaminophen/oxyCODONE [Percocet 325-5 MG] 1 - 2 tab PO Q6H PRN #60 tablet [Rx] Bisacodyl [Dulcolax] 5 mg PO DAILY PRN tablet 02/07/18 [Rx] Docusate Sodium [Colace] 100 mg PO BID cap 02/07/18 [Rx] Famotidine [Pepcid] 20 mg PO Q12H tablet 02/07/18 [Rx] Magnesium Hydroxide [Milk of Magnesia] 30 ml PO BID PRN cup 02/07/18 [Rx] Sennosides [Senna] 8.6 mg PO BID PRN tablet 02/07/18 [Rx] Referrals: Clara Wallace PA-C [Physician Structural Steel Detailer] - (Please follow up with Clara Wallace on 02/15/18 at 0830, and a second follow up on 02/22/18 at 0830.) Albert Carlson MD [Primary Care Provider] - 02/16/18 11:30 am (Please follow up with Dr. Carlson on Wednesday, at 1130.) - Patient Data Vitals - Most Recent: Last Vital Signs Temp 98.2 F 02/08/18 11:41 Pulse 75 02/08/18 11:41 Resp 19 02/08/18 11:41 BP 115/59 L 02/08/18 11:41 Pulse Ox 94 L 02/08/18 11:41 Weight - Most Recent: 127 lb 1.6 oz I&O - Last 24 hours: Intake & Output 02/08/18 02/08/18 02/08/18 06:59 14:59 22:59 Intake Total 850 520 240 Output Total 100 600 Balance 750 -80 240 Lab Results - Last 24 hrs: Laboratory Results - last 24 hr 02/08/18 02/08/18 Range/Units 06:15 06:15 WBC 6.32 (3.98-10.04) K/mm3 RBC 3.42 L (3.98-5.22) M/mm3 Hgb 10.7 L (11.2-15.7) gm/L Hct 32.8 L (34.1-44.9) % MCV 95.9 H (79.4-94.8) fl MCH 31.3 (25.6-32.2) pg MCHC 32.6 (32.2-35.5) g/dl RDW Std Deviation 50.0 H (36.4-46.3) fL Plt Count 128 L (182-369) K/mm3 MPV 12.8 H (9.4-12.3) fl Sodium 134 L (136-145) mEq/L Potassium 3.8 (3.5-5.1) mEq/L Chloride 101 (98-107) mEq/L Carbon Dioxide 28 (21-32) mEq/L Anion Gap 8.8 (5-15) BUN 22 H (7-18) mg/dL Creatinine 1.0 (0.55-1.02) mg/dL Est Cr Clr Drug Dosing 36.67 mL/min Estimated GFR (MDRD) 54 (>60) mL/min BUN/Creatinine Ratio 22.0 H (14-18) Glucose 138 H (83-115) mg/dL Calcium 8.3 L (8.5-10.1) mg/dL Total Bilirubin 0.6 (0.2-1.0) mg/dL AST 35 (15-37) U/L ALT 27 (14-59) U/L Alkaline Phosphatase 48 (46-116) U/L Total Protein 5.0 L (6.4-8.2) g/dl Albumin 2.7 L (3.4-5.0) g/dl Globulin 2.3 gm/dL Albumin/Globulin Ratio 1.2 (1-2) Med Orders - Current: Current Medications Discontinued Medications Apixaban (Eliquis) 5 mg PO BID [facility] Last Admin: 02/08/18 08:02 Dose: 5 mg Aspirin (Halfprin) 81 mg PO DAILY [facility] Last Admin: 02/08/18 08:18 Dose: 81 mg Bisacodyl (Dulcolax) 5 mg PO DAILY PRN PRN Reason: Constipation Bupivacaine HCl (Marcaine 0.25%) Confirm Administered Dose 30 ml .ROUTE .STK- MED ONE Stop: 02/07/18 06:36 Last Admin: 02/07/18 08:39 Dose: 30 ml Bupivacaine HCl (Sensorcaine-Mpf 0.75%) Confirm Administered Dose 30 ml .ROUTE .STK-MED ONE Stop: 02/07/18 06:36 Bupivacaine HCl (Marcaine 0.25%) Confirm Administered Dose 30 ml .ROUTE .STK- MED ONE Stop: 02/07/18 07:11 Bupropion HCl (Wellbutrin Xl) 150 mg PO DAILY [facility] Last Admin: 02/08/18 08:01 Dose: 150 mg Cefazolin Sodium (Ancef) Confirm Administered Dose 2 gm .ROUTE .STK-MED ONE Stop: 02/07/18 06:36 Last Admin: 02/07/18 08:34 Dose: 2 gm Cefazolin Sodium (Ancef) Confirm Administered Dose 2 gm .ROUTE .STK-MED ONE Stop: 02/07/18 06:41 Cholecalciferol (Vitamin D3) 5,000 unit PO DAILY [facility] Last Admin: 02/08/18 08:04 Dose: 5,000 unit Morphine Sulfate 8 mg/Epinephrine HCl 0.3 mg/Cefuroxime Sodium 750 mg/Ketorolac Tromethamine 30 mg/Sodium Chloride 27.9 ml 0 mg .XX ONETIME ONE Stop: 02/07/18 06:32 Last Admin: 02/07/18 08:40 Dose: 788.3 mg Cyclobenzaprine HCl (Flexeril) 10 mg PO TID PRN PRN Reason: Spasms Last Admin: 02/08/18 10:57 Dose: 10 mg Denosumab (Prolia) 60 mg .XX Q6M [facility] Last Admin: 02/07/18 22:06 Dose: Not Given Diclofenac Sodium (Voltaren 1% Gel) 2 gm TOP ASDIRECTED PRN PRN Reason: Pain Diphenhydramine HCl (Benadryl) 25 mg IVPUSH Q6H PRN PRN Reason: Pruritis Stop: 02/07/18 16:00 Docusate Sodium (Colace) 100 mg PO BID [facility] Last Admin: 02/08/18 08:18 Dose: 100 mg Ephedrine Sulfate (Ephedrine In Ns) Confirm Administered Dose 25 mg .ROUTE .STK- MED ONE Stop: 02/07/18 08:07 Famotidine (Pepcid) 20 mg PO Q12H [facility] Last Admin: 02/08/18 06:20 Dose: 20 mg Fentanyl (Sublimaze) Confirm Administered Dose 100 mcg .ROUTE .STK-MED ONE Stop: 02/07/18 06:31 Fentanyl (Sublimaze) 50 mcg IVPUSH Q5M PRN PRN Reason: Pain Stop: 02/07/18 09:17 Furosemide (Lasix) 20 mg PO DAILY [facility] Last Admin: 02/08/18 08:03 Dose: 20 mg Lactated Ringer's (Ringers, Lactated) 1,000 mls @ 125 mls/hr IV ASDIRECTED [facility] Last Admin: 02/07/18 06:50 Dose: 125 mls/hr Cefazolin Sodium/Dextrose 2 gm (/ Premix) 50 mls @ 100 mls/hr IV Q8H JUSTUS Stop: 02/08/18 06:29 Last Admin: 02/08/18 06:20 Dose: 100 mls/hr Lactated Ringer's (Ringers, Lactated) Confirm Administered Dose 1,000 mls @ as directed .ROUTE .STK-MED ONE Stop: 02/07/18 08:56 Sodium Chloride (Normal Saline) 250 mls @ 249.723 mls/hr IV ONETIME ONE Stop: 02/08/18 07:30 Last Admin: 02/08/18 06:53 Dose: 249.723 mls/hr Ketorolac Tromethamine (Toradol) 15 mg IVPUSH Q6H PRN PRN Reason: Pain Last Admin: 02/08/18 12:23 Dose: 15 mg Levothyroxine Sodium (Levothyroxine) 112 mcg PO ACBREAKFAST [facility] Last Admin: 02/08/18 06:20 Dose: 112 mcg Lidocaine HCl (Xylocaine-Mpf 1%) 5 ml .ROUTE .STK-MED ONE Stop: 02/07/18 06:36 Lidocaine/Sodium Bicarbonate (Buffered Lidocaine 1% In Ns 8.4%) 0.25 ml IDERM ONETIME PRN PRN Reason: Prior to IV Start Last Admin: 02/07/18 06:49 Dose: 0.25 ml Loratadine (Claritin) 10 mg PO DAILY@1200 [facility] Last Admin: 02/08/18 12:19 Dose: Not Given Losartan Potassium (Cozaar) 50 mg PO BID [facility] Last Admin: 02/08/18 09:19 Dose: Not Given Magnesium Hydroxide (Milk Of Magnesia) 30 ml PO BID PRN PRN Reason: Constipation Meperidine HCl (Meperidine) 12.5 mg IVPUSH ONETIME PRN PRN Reason: Shivering Stop: 02/07/18 16:00 Morphine Sulfate (Duramorph Pf) Confirm Administered Dose 10 mg .ROUTE .STK-MED ONE Stop: 02/07/18 06:35 Morphine Sulfate (Morphine) 2 mg IVPUSH Q2H PRN PRN Reason: Breakthrough Pain Nadolol (Naldol) 40 mg PO DAILY [facility] Last Admin: 02/08/18 09:20 Dose: Not Given Naloxone HCl (Narcan) 0.1 mg IVPUSH Q5M PRN PRN Reason: Oversedation Ondansetron HCl (Zofran) Confirm Administered Dose 4 mg .ROUTE .STK-MED ONE Stop: 02/07/18 06:36 Ondansetron HCl (Zofran) 4 mg IVPUSH Q6H PRN PRN Reason: Nausea/Vomiting Ondansetron HCl (Zofran) 4 mg IVPUSH ONETIME PRN PRN Reason: Nausea/Vomiting Stop: 02/07/18 16:00 Oxycodone/Acetaminophen (Percocet 325-5 Mg) 1 - 2 tab PO Q4H PRN PRN Reason: Pain Last Admin: 02/08/18 10:54 Dose: 2 tab Zaditor(Ketotifen Fumarate) Opth Solution 0 each EYEBOTH Q4H PRN PRN Reason: Allergies Propofol (Diprivan 20 Ml) Confirm Administered Dose 400 mg .ROUTE .STK-MED ONE Stop: 02/07/18 06:30 Senna (Senna) 8.6 mg PO BID PRN PRN Reason: Constipation Simvastatin (Zocor) 10 mg PO BEDTIME [facility] Last Admin: 02/07/18 21:10 Dose: 10 mg Sodium Chloride (Saline Flush) 10 ml FLUSH ASDIRECTED PRN PRN Reason: Keep Vein Open Tranexamic Acid (Cyklokapron) Confirm Administered Dose 1,000 mg .ROUTE .STK- MED ONE Stop: 02/07/18 06:36 Last Admin: 02/07/18 08:41 Dose: 1,000 mg Vancomycin HCl (Vancomycin) Confirm Administered Dose 1 gm .ROUTE .STK-MED ONE Stop: 02/07/18 06:36 Last Admin: 02/07/18 08:41 Dose: 1 gm
--- NOTE | 2018-02-14 14:44 | CR ---
Pelvis and left hip: AP view of the pelvis was obtained as well as lateral view of the left hip. Comparison: No previous study. Left hip prosthesis is seen. Components are aligned. Underlying bony structures are intact. Joint space within the right hip is preserved. Sacroiliac joints appear within normal limits. Impression: 1. Left hip prosthesis. 2. AP pelvis and left hip study are otherwise unremarkable. Diagnostic code #2 MTDD
--- NOTE | 2018-02-17 07:15 | PCM.OPNOTE ---
- General Post-Op/Procedure Note Date of Surgery/Procedure: 02/07/18 Operative Procedure(s): left total hip arthroplasty Pre Op Diagnosis: left hip osteoarthrosis Post-Op Diagnosis: Same Anesthesia Technique: Local, MAC, Spinal Primary Surgeon: Edgar Thomas Anesthesia Provider: Luis Junior Movie Projectionist: Clara Wallace Movie Projectionist: Claire Luna EBBuffy in mLs: 250 Complications: None Condition: Good
--- NOTE | 2018-02-17 08:30 | OR ---
DATE OF OPERATION: 02/07/2018 SURGEON: Edgar Thoams MD OPERATION PERFORMED: Left total hip arthroplasty. PREOPERATIVE DIAGNOSIS: Left hip osteoarthrosis. POSTOPERATIVE DIAGNOSIS: Left hip osteoarthrosis. ANESTHESIA: Local MAC with spinal. ANESTHESIA PROVIDER: Luis Junior. WIRELESS SALES EXPERT: Clara Wallace PA-C, and Claire Luna LPN. ESTIMATED BLOOD LOSS: 250 mL. COMPLICATIONS: None. CONDITION: Stable. IMPLANTS: 1. [place] size 54 mm Tritanium acetabular cup. 2. [place] size 4 Accolade II stem. 3. Cristopher size 36 +0 mm ceramic femoral head. DESCRIPTION OF PROCEDURE: The patient was identified in the preoperative holding area. Proper site was marked and identified by the surgeon. The patient was taken back to the operating theater, where after adequate anesthesia, the patient was placed in a right lateral decubitus position. Axillary roll was placed. All bony prominences were well padded. Pegs were then placed and were well padded. The patient's gluteal fold was parallel to the floor. Left hip was then sterilely prepped and draped in the usual sterile fashion. OR time-out was performed. The patient received 2 g of IV Ancef at this time. Standard incision was made centered over the greater trochanter. This was taken down to the IT band and gluteal fascia, which was incised along the incisional length at this time. Charnley retractor was placed and protecting the neurovascular bundles. At this time, short external rotators were identified and takedown of short external rotators as well as capsule was done from the level of the piriformis down to the lesser trochanter. Hip was then dislocated. Neck cut was then completed. Anterior and posterior acetabular retractors were then placed. Any remaining labrum was then resected along with pulvinar. Starting with a 44 reamer, I was able to ream up to a 54 which was found to have good adequate fixation. At this time, a 54 mm Tritanium acetabular cup was impacted into place, roughly 45 degrees of abduction with 20 degrees of anteversion. The polyethylene for a 36 mm head was then impacted into place and attention was turned to the femur. Femoral elevator was placed. Box chisel was used out laterally. Starter awl was placed down the canal. Starting with the 0 broach, I was able to broach up to a size 4, which was found to be rotationally and vertically stable. A 36 +0 trial was then placed and the hip was relocated. Leg lengths were found to be adequately restored and hip was stable throughout range of motion. Bone hook was then used for dislocation of the trial implants. A size 4 Accolade II stem was then impacted in place with a 36 +0 mm head. This was then relocated. A #5 Ethibond suture was used for closure of the short external rotators and capsule. 3 L of pulse lavage irrigation with Ancef was then irrigated through the hip. Topical tranexamic acid as well as vancomycin powder was placed. #2 barbed suture was used for closure of the IT band and gluteal fascia, 2-0 Vicryl was used subcutaneously, and Prineo was used for the skin. The patient was sent to PACU in stable condition. SANDRA /[id number]
== END 2018-02-08 13:40 | disposition home or self-care (01) | DRG 470 ==
LOC: JD.MS 06:11
PROVIDERS: ADMIT Orthopaedic Surgery; ATTEND Orthopaedic Surgery
PROC: 0SRB0JZ Replacement of Left Hip Joint with Synthetic Substitute, Open Approach (ICD-10-PCS; principal; 2018-02-07)
PROC: 3E0U029 Introduction of Other Anti-infective into Joints, Open Approach (ICD-10-PCS; principal; 2018-02-07)
DX: M16.12 Unilateral primary osteoarthritis, left hip (principal); I95.9 Hypotension, unspecified; I48.91 Unspecified atrial fibrillation; E78.5 Hyperlipidemia, unspecified; E50.9 Vitamin A deficiency, unspecified; I11.0 Hypertensive heart disease with heart failure; G47.33 Obstructive sleep apnea (adult) (pediatric); E88.81 Metabolic syndrome and other insulin resistance; K21.9 Gastro-esophageal reflux disease without esophagitis; M81.0 Age-related osteoporosis without current pathological fracture; F41.9 Anxiety disorder, unspecified; F32.9 Major depressive disorder, single episode, unspecified; R32 Unspecified urinary incontinence; E78.00 Pure hypercholesterolemia, unspecified; E11.9 Type 2 diabetes mellitus without complications; E89.0 Postprocedural hypothyroidism; Z90.49 Acquired absence of other specified parts of digestive tract; Z87.891 Personal history of nicotine dependence; Z88.8 Allergy status to other drugs, medicaments and biological substances; Z91.048 Other nonmedicinal substance allergy status; Z86.73 Personal history of transient ischemic attack (TIA), and cerebral infarction without residual deficits; Z79.82 Long term (current) use of aspirin; Z79.899 Other long term (current) drug therapy
CPT/HCPCS: 01214; 36415; 51798; 73501-LT; 80053; 85027; 86850; 86900; 86901; 87641; 94762; 97110-GP; 97116-GP; 97161-GP; 97165-GO; 97530-GO; 97535-GO; A9270-GY; C1776; J0171; J0690; J0697; J1885; J2270; J2405; J2704; J3010; J3370; J3490; J7050; J7120

== ENCOUNTER 2019-08-21 06:20 | Observation (INO) | payer MEDICARE, BC ==
[~2019-08-21 06:20] MED LIST changes: +Bupivacaine 0.75% 30 ML SDV ONE; +Propofol 200 MG/20 ML SDV ONE; +ceFAZolin 1 GM Vial ONE; +fentaNYL 100 MCG/2 ML SDV ONE
[2019-08-21] MEDS ORDERED: Ropivacaine 0.5% 5 MG/ML 30 ML SDV ONE (06:25)
[2019-08-21] MEDS ORDERED: EPINEPHrine 1 MG/ML SDV ONE (06:25)
[2019-08-21] MEDS ORDERED: Cyclobenzaprine 10 MG Tab PO PRN (06:35)
[2019-08-21] MEDS ORDERED: Sennosides 8.6 MG Tab PO PRN ×2 (06:36→06:59)
[2019-08-21] MEDS ORDERED: Naloxone 0.4 MG/ML SDV IVPUSH PRN (06:36)
[2019-08-21] MEDS ORDERED: Morphine 2 MG/ML SYRINGE IVPUSH PRN ×2 (06:36→06:59)
[2019-08-21] MEDS ORDERED: Magnesium Hydroxide 400 MG/5 ML Susp 30 ML Cup PO PRN ×2 (06:36→06:58)
[2019-08-21] MEDS ORDERED: Ondansetron 4 MG/2 ML SDV IVPUSH PRN ×2 (06:36→07:18)
[2019-08-21] MEDS ORDERED: Bisacodyl 5 MG Tab PO PRN ×2 (06:36→06:57)
--- NOTE | 2019-08-21 06:40 | PCM.PREANE ---
Preanesthetic Assessment - Procedure Proposed Procedure: right total knee arthroplasty - Anesthesia/Transfusion/Family Hx Anesthesia History: Prior Anesthesia Without Reaction Family History of Anesthesia Reaction: No Transfusion History: No Prior Transfusion(s) - Review of Systems General: No Symptoms Pulmonary: Shortness of Breath (getting more normal for her) Cardiovascular: Dyspnea on Exertion Gastrointestinal: No Symptoms Neurological: No Symptoms Other: Reports: Diabetes (pre), Thyroid Problems, Neck Pain (stiff) - Physical Assessment NPO Status Date: 08/20/19 NPO Status Time: 23:30 Vital Signs: 98% 67 170/96 18 97.5 Height: 5 ft 3 in Weight: 59.965 kg ASA Class: 3 Mental Status: Alert & Oriented x3 Airway Class: Mallampati = 1 Dentition: Reports: Normal Dentition Thyro-Mental Finger Breadths: 3 Mouth Opening Finger Breadths: 3 ROM/Head Extension: Full Lungs: Clear to Auscultation, Normal Respiratory Effort Cardiovascular: Irregular Rhythm - Lab Values: Laboratory Last Values MRSA (PCR) Negative 08/08/19 14:24 - Allergies Allergies/Adverse Reactions: Allergies Allergy/AdvReac Type Severity Reaction Status Date / Time cat dander Allergy Cannot Verified 08/20/19 12:01 Remember Iodinated Contrast Media Allergy hot flashes Verified 08/20/19 12:01 - Blood Blood Available: No - Anesthesia Plan Beta Tashi: Metoprolol Med Last Dose Date: 08/20/19 Med Last Dose Time: 22:00 - Acknowledgements Anesthesia Type Planned: Spinal Pt an Appropriate Candidate for the Planned Anesthesia: Yes Alternatives and Risks of Anesthesia Discussed w Pt/Guardian: Yes Pt/Guardian Understands and Agrees with Anesthesia Plan: Yes PreAnesthesia Questionnaire HEENT History: Reports: Allergic Rhinitis, Other (See Below) Other HEENT History: eustachian tube dysfunction, bruxism, tonsillitis, wears glasses Cardiovascular History: Reports: Afib, Heart Failure, High Cholesterol, Hypertension, Other (See Below) Other Cardiovascular History: valvular heart disease Respiratory History: Reports: Sleep Apnea, Other (See Below) Other Respiratory History: seasonal allergies Gastrointestinal History: Reports: Gastritis, GERD (not usually), Other (See Below) Other Gastrointestinal History: reflux Genitourinary History: Reports: Urinary Incontinence MATERIAL CONTROL MANAGER History: Reports: Other (See Below) Other OB/BYN History: right breast lump Musculoskeletal History: Reports: Osteoarthritis, Osteoporosis, Other (See Below ) Other Musculoskeletal History: right great toe bunion, right foot metatrsalgia, synovial cyst of popliteal space, carpal tunnel syndrome, degnerative joint disease, knee pain Neurological History: Reports: TIA, Other (See Below) Other Neuro History: cerebral ischemia Psychiatric History: Reports: Depression Other Psychiatric History: malaise, fatigue Endocrine/Metabolic History: Reports: Diabetes, Type II, Hypothyroidism, Osteoporosis Other Endocrine/Metabolic History: thryroid removed due to hyperthyroid 2000 Hematologic History: Reports: None Immunologic History: Reports: None Oncologic (Cancer) History: Reports: None Dermatologic History: Reports: Other (See Below) Other Dermatologic History: skin lesion, cyst excison - Infectious Disease History Infectious Disease History: Reports: Other (See Below) Other Infectious Disease History: unknown - Past Surgical History Head Surgeries/Procedures: Reports: None HEENT Surgical History: Reports: Cataract Surgery, Eye Surgery, Tonsillectomy Cardiovascular Surgical History: Reports: None Respiratory Surgical History: Reports: None GI Surgical History: Reports: Cholecystectomy, Colonoscopy, EGD Female Surgical History: Reports: D&C, Other (See Below) Other Female Surgeries/Procedures: miscarriage x 1 Endocrine Surgical History: Reports: Thyroidectomy Neurological Surgical History: Reports: Other (See Below) Other Neurological Surgeries/Procedures: back surgery Musculoskeletal Surgical History: Reports: Arthroscopic Procedure, Carpal Tunnel , Hip Replacement Oncologic Surgical History: Reports: None - SUBSTANCE USE Smoking Status *Q: Former Smoker Tobacco Use Within Last Twelve Months: No Second Hand Smoke Exposure: No Days Per Week of Alcohol Use: 0 Recreational Drug Use History: No - HOME MEDS Home Medications: Home Meds Apixaban [Eliquis] 2.5 mg PO BID 07/03/16 [History] Aspirin [Halfprin] 81 mg PO DAILY 07/03/16 [History] Cholecalciferol (Vitamin D3) [Vitamin D] 5,000 unit PO DAILY 07/03/16 [History] Losartan [Cozaar] 50 mg PO BID 07/03/16 [History] Denosumab [Prolia] 60 mg SQ Q6M 02/04/18 [History] Diclofenac Sodium 1 dose TOP ASDIRECTED PRN 02/04/18 [History] Fexofenadine [Emily] 180 mg PO DAILY PRN 02/04/18 [History] Furosemide 20 mg PO DAILY 02/04/18 [History] Ketotifen Fumarate [Allergy Eye Drops] 1 drop EYEBOTH Q4H PRN 02/04/18 [History] Simvastatin 10 mg PO DAILY 02/04/18 [History] - CURRENT (IN HOUSE) MEDS Current Meds: Current Medications Lactated Ringer's (Ringers, Lactated) 1,000 mls @ 125 mls/hr IV ASDIRECTED [facility] Stop: 08/21/19 23:00 Lidocaine/Sodium Bicarbonate (Buffered Lidocaine 1% In Ns 8.4%) 0.25 ml IDERM ONETIME PRN PRN Reason: Prior to IV Start Stop: 08/21/19 18:00 Sodium Chloride (Saline Flush) 10 ml FLUSH ASDIRECTED PRN PRN Reason: Keep Vein Open Stop: 08/21/19 18:00 Discontinued Medications Bupivacaine HCl (Sensorcaine-Mpf 0.75%) Confirm Administered Dose 30 ml .ROUTE .STK-MED ONE Stop: 08/21/19 06:20 Bupivacaine HCl (Sensorcaine-Mpf 0.25%) Confirm Administered Dose 30 ml .ROUTE .STK-MED ONE Stop: 08/21/19 06:30 Cefazolin Sodium (Ancef) Confirm Administered Dose 2 gm .ROUTE .STK-MED ONE Stop: 08/21/19 06:19 Cefazolin Sodium (Ancef) Confirm Administered Dose 2 gm .ROUTE .STK-MED ONE Stop: 08/21/19 06:30 Epinephrine HCl (Adrenalin) Confirm Administered Dose 1 mg .ROUTE .STK-MED ONE Stop: 08/21/19 06:26 Fentanyl (Sublimaze) Confirm Administered Dose 100 mcg .ROUTE .STK-MED ONE Stop: 08/21/19 06:19 Propofol (Diprivan 20 Ml) Confirm Administered Dose 400 mg .ROUTE .STK-MED ONE Stop: 08/21/19 06:19 Ropivacaine (Naropin 0.5%) Confirm Administered Dose 30 ml .ROUTE .STK-MED ONE Stop: 08/21/19 06:26 Tranexamic Acid (Cyklokapron) Confirm Administered Dose 1,000 mg .ROUTE .STK- MED ONE Stop: 08/21/19 06:29 Vancomycin HCl (Vancomycin) Confirm Administered Dose 1 gm .ROUTE .STK-MED ONE Stop: 08/21/19 06:29
[2019-08-21] MEDS ORDERED: Ondansetron 4 MG/2 ML SDV ONE (07:09)
[2019-08-21] MEDS ORDERED: HYDROmorphone 0.5 MG/0.5 ML Syringe IVPUSH PRN (07:18)
[2019-08-21] MEDS ORDERED: fentaNYL 100 MCG/2 ML SDV IVPUSH PRN (07:18)
[2019-08-21] MEDS ORDERED: ePHEDrine Sulfate/0.9% NaCl/Pf 25 MG/5 ML SYRINGE IV ONE (07:35)
[2019-08-21] MEDS: Iodine/Sodium Iodide 2% Tincture 30 ML Bottle ONE ×2 (07:45→08:04)
[2019-08-21] MEDS: ceFAZolin 1 GM Vial ONE ×2 (07:45→08:06)
[2019-08-21] MEDS: Morphine 8 MG, EPINEPHrine 0.3 MG, Cefuroxime 750 MG, Ketorolac 30 MG, Sodium Chloride ... ONE ×15 (07:46→10:30)
[2019-08-21] MEDS: Bupivacaine 0.25% 10 ML SDV ONE ×4 (07:48→08:36)
[2019-08-21] MEDS: Vancomycin 1 GM SDV ONE ×2 (07:48→08:12)
[2019-08-21] MEDS: Triamcinolone Acetonide 40 MG/ML 1 ML SDV ONE ×2 (07:49→08:36)
[2019-08-21] MEDS ORDERED: Lactated Ringers 1,000 ML ONE (08:09)
--- NOTE | 2019-08-21 08:47 | PCM.POSTAN ---
POST ANESTHESIA ASSESSMENT - MENTAL STATUS Mental Status: Alert, Oriented - VITAL SIGNS Vital Signs: Last Vital Signs Temp 97.5 F 08/21/19 06:35 Pulse 74 08/21/19 06:35 Resp 16 08/21/19 06:35 BP 180/97 H 08/21/19 06:55 Pulse Ox 98 08/21/19 06:35 122/71 94% 14 67 97.9 - RESPIRATORY Respiratory Status: Respiratory Rate WNL, Airway Patent, O2 Saturation Stable, Supplemental Oxygen - CARDIOVASCULAR CV Status: Pulse Rate WNL, Blood Pressure Stable - GASTROINTESTINAL GI Status: No Symptoms - PAIN Pain Score: 0 - POST OP HYDRATION Hydration Status: Adequate & Stable
--- NOTE | 2019-08-21 09:04 | PCM.SN ---
- Free Text/Narrative Note: Right selective femoral nerve block at the adductor canal for post-procedure pain control under US guidance requested by Dr. Thomas. Date:08-21-1999 Time Out: 851 Start: 852 End: 855 Chart reviewed. Consent signed. Questions answered. Appropriate monitors applied. Time out performed. Right mid-shaft femur identified with ultrasound, scanning medially of femur, the femoral artery in the adductor canal visualized , and the femoral nerve located laterally to the artery. The skin was prepped lateral to the ultrasound probe with chlorahexadine times two. The 21ga 4 insulated block needle was inserted under direct ultrasound guidance into the adductor canal. 25mL of 0.5% ropivacaine with 1:200,000 epinephrine was injected circumferentially around the nerve with intermittent negative aspiration noted. Patient tolerated the procedure well. Sterile technique noted along with sterile gloves, mask, and sterile probe cover. See picture on progress note and vital signs on nurses notes. Block completed in PACU. Tristen Montano CRNA
--- NOTE | 2019-08-21 09:37 | CR ---
Right knee: Portable AP and lateral views of the right knee were obtained. Comparison: No prior right knee exam. Knee prosthesis is seen. Components are aligned. Soft tissue air is noted from the surgical procedure. Underlying bony structures are intact. Impression: 1. Satisfactory postop radiographic appearance of recently placed right knee prosthesis. Diagnostic code #2 This report was dictated in [place] Standard Time
--- NOTE | 2019-08-21 11:07 | PCM.CONS ---
H&P History of Present Illness - General Date of Service: 08/21/19 Admit Problem/Dx: Admission Diagnosis/Problem Admission Diagnosis/Problem Osteoarthritis of knee Source of Information: Patient, Old Records, Provider, RN, RN Notes Reviewed History Limitations: Reports: No Limitations - History of Present Illness Initial Comments - Free Text/Narative: Catherine Noriega is a 79 yo female patient of Dr. Thomas who is post-operative day 0 of right TKA with left knee cortisone injection. Hospital medicine was consulted for post-operative medical care of the following listed medical conditions. At this time she is resting comfortably in bed. Pain is controlled. She denies any chest pain, shortness of breath, palpitations, nausea, or vomiting. She carries a history of: HTN, Pre-Diabetes, A-fib, HLD, MESHA, Metabolic syndrome, GERD, Depression, Osteoporosis, OA, Incontinence, Heart valve dysfunction, Hypothyroidism 2/2 thyroidectomy, eustachian tube dysfunction, bruxism, CHF, gastritis, TIA, cerebral ischemia. She is a former smoker. She is a full code. Her primary care provider is Dr. Carlson. Right Knee Pain Score (Numeric/FACES): 0 - Related Data Allergies/Adverse Reactions: Allergies Allergy/AdvReac Type Severity Reaction Status Date / Time cat dander Allergy Cannot Verified 08/21/19 06:57 Remember Iodinated Contrast Media Allergy hot flashes Verified 08/21/19 06:57 Home Medications: Home Meds Apixaban [Eliquis] 2.5 mg PO BID 07/03/16 [History] Aspirin [Halfprin] 81 mg PO DAILY 07/03/16 [History] Cholecalciferol (Vitamin D3) [Vitamin D] 5,000 unit PO DAILY 07/03/16 [History] Losartan [Cozaar] 50 mg PO BID 07/03/16 [History] Denosumab [Prolia] 60 mg SQ Q6M 02/04/18 [History] Diclofenac Sodium 1 dose TOP ASDIRECTED PRN 02/04/18 [History] Fexofenadine [Emily] 180 mg PO DAILY PRN 02/04/18 [History] Furosemide 20 mg PO DAILY 02/04/18 [History] Ketotifen Fumarate [Allergy Eye Drops] 1 drop EYEBOTH Q4H PRN 02/04/18 [History] Simvastatin 10 mg PO DAILY 02/04/18 [History] Acetaminophen [Tylenol] 1 tab PO ASDIRECTED PRN 08/21/19 [History] Docusate Sodium [Stool Softener] 2 tab PO DAILY 08/21/19 [History] Levothyroxine 125 mcg PO DAILY 08/21/19 [History] Metoprolol Succinate 50 mg PO DAILY 08/21/19 [History] buPROPion HCl [Wellbutrin Xl] 300 mg PO DAILY 08/21/19 [History] Past Medical History HEENT History: Reports: Allergic Rhinitis, Other (See Below) Other HEENT History: eustachian tube dysfunction, bruxism, tonsillitis, wears glasses Cardiovascular History: Reports: Afib, Heart Failure, High Cholesterol, Hypertension, Other (See Below) Other Cardiovascular History: valvular heart disease Respiratory History: Reports: Sleep Apnea, Other (See Below) Other Respiratory History: seasonal allergies Gastrointestinal History: Reports: Gastritis, GERD (not usually), Other (See Below) Other Gastrointestinal History: reflux Genitourinary History: Reports: Urinary Incontinence 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: 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 (See Below) Other OB/BYN History: right breast lump Musculoskeletal History: Reports: Osteoarthritis, Osteoporosis, Other (See Below ) Other Musculoskeletal History: right great toe bunion, right foot metatrsalgia, synovial cyst of popliteal space, carpal tunnel syndrome, degnerative joint disease, knee pain Neurological History: Reports: TIA, Other (See Below) Other Neuro History: cerebral ischemia Psychiatric History: Reports: Depression Other Psychiatric History: malaise, fatigue Endocrine/Metabolic History: Reports: Diabetes, Type II, Hypothyroidism, Osteoporosis Other Endocrine/Metabolic History: thryroid removed due to hyperthyroid 2000 Hematologic History: Reports: None Immunologic History: Reports: None Oncologic (Cancer) History: Reports: None Dermatologic History: Reports: Other (See Below) Other Dermatologic History: skin lesion, cyst excison - Infectious Disease History Infectious Disease History: Reports: Other (See Below) Other Infectious Disease History: unknown - Past Surgical History Head Surgeries/Procedures: Reports: None HEENT Surgical History: Reports: Cataract Surgery, Eye Surgery, Tonsillectomy Cardiovascular Surgical History: Reports: None Respiratory Surgical History: Reports: None GI Surgical History: Reports: Cholecystectomy, Colonoscopy, EGD Female Surgical History: Reports: D&C, Other (See Below) Other Female Surgeries/Procedures: miscarriage x 1 Endocrine Surgical History: Reports: Thyroidectomy Neurological Surgical History: Reports: Other (See Below) Other Neurological Surgeries/Procedures: back surgery Musculoskeletal Surgical History: Reports: Arthroscopic Procedure, Carpal Tunnel , Hip Replacement Oncologic Surgical History: Reports: None Social & Family History - Family History Family Medical History: Noncontributory - Tobacco Use Smoking Status *Q: Former Smoker Used Tobacco, but Quit: Yes Month/Year Tobacco Last Used: 1963 Second Hand Smoke Exposure: No - Caffeine Use Caffeine Use: Reports: Tea - Alcohol Use Days Per Week of Alcohol Use: 0 - Recreational Drug Use Recreational Drug Use: No Drug Use in Last 12 Months: No H&P Review of Systems - Review of Systems: Review Of Systems: See Below General: Reports: No Symptoms. Denies: Fever, Chills HEENT: Reports: No Symptoms. Denies: Headaches, Sore Throat Pulmonary: Reports: No Symptoms. Denies: Shortness of Breath, Wheezing, Pleuritic Chest Pain, Cough, Sputum Cardiovascular: Reports: No Symptoms. Denies: Chest Pain, Palpitations, Dyspnea on Exertion Gastrointestinal: Reports: No Symptoms. Denies: Abdominal Pain, Constipation, Diarrhea, Nausea, Vomiting Genitourinary: Reports: No Symptoms. Denies: Pain Musculoskeletal: Reports: Leg Pain Skin: Reports: No Symptoms. Denies: Cyanosis Psychiatric: Reports: No Symptoms. Denies: Confusion Neurological: Reports: Difficulty Walking, Gait Disturbance. Denies: Confusion Hematologic/Lymphatic: Reports: No Symptoms Immunologic: Reports: No Symptoms Exam - Exam Exam: See Below - Vital Signs Vital Signs: Last Vital Signs Temp 96.4 F L 08/21/19 09:53 Pulse 69 08/21/19 09:53 Resp 14 08/21/19 09:53 BP 142/74 H 08/21/19 09:53 Pulse Ox 95 08/21/19 09:53 Weight: 132 lb 3.2 oz - Exam Quality Assessment: DVT Prophylaxis General: Alert, Oriented, Cooperative. No: Mild Distress HEENT: Conjunctiva Clear, EACs Clear, Hearing Intact, Mucosa Moist & [place], Nares Patent, Posterior Pharynx Clear Neck: Supple, Trachea Midline Lungs: Clear to Auscultation, Normal Respiratory Effort Cardiovascular: Irregular Rhythm GI/Abdominal Exam: Normal Bowel Sounds, Soft, Non-Tender, No Distention (Female) Exam: Deferred Rectal (Female) Exam: Deferred Extremities: Normal Capillary Refill, Leg Pain, Limited Range of Motion, Other ( Bandage in place on right leg. Bandage is dry and intact. Cooling pack in place. ) Peripheral Pulses: 2+: Radial (L), Radial (R), Dorsalis Pedis (L), Dorsalis Pedis (R) Skin: Warm, Dry, Intact Neurological: Cranial Nerves Intact (Grossly ) Neuro Extensive - Mental Status: Alert, Oriented x3, Normal Mood/Affect - Patient Data Lab Results Last 24 hrs: Laboratory Results - last 24 hr 08/21/19 Range/Units 06:50 POC Glucose 91 (83-110) mg/dL Sepsis Event Note - Evaluation Sepsis Screening Result: No Definite Risk - Focused Exam Vital Signs: Vital Signs Temp Temp Pulse Pulse Resp BP BP 08/21/19 09:53 96.4 F L 69 14 142/74 H 08/21/19 09:40 97.7 F 14 140/84 08/21/19 09:30 15 131/79 08/21/19 09:22 08/21/19 09:15 18 140/79 08/21/19 09:08 08/21/19 09:00 18 147/76 H 08/21/19 08:50 13 134/75 08/21/19 08:41 97.9 F 14 122/71 08/21/19 06:55 180/97 H 08/21/19 06:50 167/82 H 08/21/19 06:44 161/99 H 08/21/19 06:35 97.5 F 74 16 170/96 H Pulse Ox Pulse Ox 08/21/19 09:53 95 08/21/19 09:40 96 08/21/19 09:30 94 L 08/21/19 09:22 98 08/21/19 09:15 98 08/21/19 09:08 100 08/21/19 09:00 99 08/21/19 08:50 100 08/21/19 08:41 94 L 94 L 08/21/19 06:55 08/21/19 06:50 08/21/19 06:44 08/21/19 06:35 98 Date Exam was Performed: 08/21/19 Time Exam was Performed: 15:17 Consult PN Assessment/Plan POD#: 0 Procedures: Procedures APPLY FOREARM SPLINT (09/17/16) ASSAY OF LIPASE (07/03/16) ASSAY OF TROPONIN QUANT (07/03/16) BLOOD TYPING SEROLOGIC ABO (02/07/18) BLOOD TYPING SEROLOGIC RH(D) (02/07/18) BREAST TOMOSYNTHESIS BI (04/28/19) CARDIOVASCULAR STRESS TEST (06/05/19) CHEST X-RAY 2VW FRONTAL&LATL (07/03/16) COMP SCREEN MAMMOGRAM ADD-ON (02/19/16) COMPLETE CBC AUTOMATED (02/07/18) COMPLETE CBC W/AUTO DIFF WBC (08/18/16) COMPREHEN METABOLIC PANEL (02/07/18) CT ABD & PELVIS W/O CONTRAST (08/18/16) CULTURE SCREEN ONLY (12/03/14) DXA BONE DENSITY AXIAL (08/10/16) ECG MONIT/REPRT UP TO 48 HRS (05/23/15) ECG MONIT/REPRT UP TO 48 HRS (05/23/15) EGD BIOPSY SINGLE/MULTIPLE (08/10/16) ELECTROCARDIOGRAM TRACING (07/03/16) EMERGENCY DEPT VISIT (09/17/16) EMERGENCY DEPT VISIT (08/18/16) EMERGENCY DEPT VISIT (07/03/16) EVALUATION OF WHEEZING (05/23/15) GAIT TRAINING THERAPY (02/07/18) HT MUSCLE IMAGE SPECT MULT (06/05/19) HYDRATE IV INFUSION ADD-ON (08/18/16) MEASURE BLOOD OXYGEN LEVEL (02/07/18) MR-STAPH DNA AMP PROBE (02/07/18) OFFICE/OUTPATIENT VISIT EST (12/03/14) OT EVAL LOW COMPLEX 30 MIN (02/07/18) PROTHROMBIN TIME (08/18/16) PT EVAL LOW COMPLEX 20 MIN (02/07/18) RBC ANTIBODY SCREEN (02/07/18) ROUTINE VENIPUNCTURE (02/07/18) SCR MAMMO BI INCL CAD (04/28/19) SELF CARE MNGMENT TRAINING (02/07/18) STREP A AG IA (12/03/14) THER/PROPH/DIAG INJ IV PUSH (08/18/16) THERAPEUTIC ACTIVITIES (02/07/18) THERAPEUTIC EXERCISES (02/07/18) THROMBOPLASTIN TIME PARTIAL (08/18/16) TISSUE EXAM BY PATHOLOGIST (08/10/16) TX/PRO/DX INJ NEW DRUG ADDON (08/18/16) URINALYSIS AUTO W/SCOPE (08/18/16) US URINE CAPACITY MEASURE (02/07/18) X-RAY EXAM HIP UNI 1 VIEW (02/07/18) X-RAY EXAM OF HAND (09/17/16) X-RAY EXAM OF WRIST (09/17/16) X-RAY XM UPR GI TRC 2CNTRST (08/18/16) (1) S/P total knee arthroplasty SNOMED Code(s): 3731210378326, 702152791, 0068410422076 Code(s): Z96.659 - PRESENCE OF UNSPECIFIED ARTIFICIAL KNEE JOINT Priority: High Current Visit: Yes Qualifiers: Laterality: right Qualified Code(s): Z96.651 - Presence of right artificial knee joint (2) Pre-diabetes SNOMED Code(s): 985059363 Code(s): R73.03 - PREDIABETES Priority: Medium Current Visit: No (3) HLD (hyperlipidemia) SNOMED Code(s): 81141335 Code(s): E78.5 - HYPERLIPIDEMIA, UNSPECIFIED Priority: Low Current Visit : No Qualifiers: Hyperlipidemia type: unspecified Qualified Code(s): E78.5 - Hyperlipidemia , unspecified (4) Valvular heart disease SNOMED Code(s): 511289 Code(s): I38 - ENDOCARDITIS, VALVE UNSPECIFIED Priority: Medium Current Visit: No (5) Cerebral ischemia SNOMED Code(s): 739262497 Code(s): I67.82 - CEREBRAL ISCHEMIA Priority: Low Current Visit: No (6) S/P thyroidectomy SNOMED Code(s): 477938116, 82323348, 414752043 Code(s): Z98.890 - OTHER SPECIFIED POSTPROCEDURAL STATES Priority: Low Current Visit: No (7) A-fib SNOMED Code(s): 18117281 Code(s): I48.91 - UNSPECIFIED ATRIAL FIBRILLATION Priority: Medium Current Visit: No Qualifiers: Atrial fibrillation type: unspecified Qualified Code(s): I48.91 - Unspecified atrial fibrillation (8) CHF (congestive heart failure) SNOMED Code(s): 54774702 Code(s): I50.9 - HEART FAILURE, UNSPECIFIED Priority: Medium Current Visit: No Qualifiers: Heart failure type: unspecified Heart failure chronicity: unspecified Qualified Code(s): I50.9 - Heart failure, unspecified (9) Gastroesophageal reflux disease SNOMED Code(s): 007922835 Code(s): K21.9 - GASTRO-ESOPHAGEAL REFLUX DISEASE WITHOUT ESOPHAGITIS Priority: Low Current Visit: No Qualifiers: Esophagitis presence: esophagitis presence not specified Qualified Code(s) : K21.9 - Gastro-esophageal reflux disease without esophagitis (10) HTN (hypertension) SNOMED Code(s): 42133134 Code(s): I10 - ESSENTIAL (PRIMARY) HYPERTENSION Priority: Medium Current Visit: No Qualifiers: Hypertension type: unspecified Qualified Code(s): I10 - Essential (primary ) hypertension (11) History of TIA (transient ischemic attack) SNOMED Code(s): 901302059 Code(s): Z86.73 - PRSNL HX OF TIA (TIA), AND CEREB INFRC W/O RESID DEFICITS Priority: Low Current Visit: No (12) Hypothyroidism SNOMED Code(s): 15538585 Code(s): E03.9 - HYPOTHYROIDISM, UNSPECIFIED Priority: Low Current Visit : No Qualifiers: Hypothyroidism type: unspecified Qualified Code(s): E03.9 - Hypothyroidism , unspecified (13) Osteoarthritis SNOMED Code(s): 345935746 Code(s): M19.90 - UNSPECIFIED OSTEOARTHRITIS, UNSPECIFIED SITE Priority: High Current Visit: No Qualifiers: Osteoarthritis location: hip Osteoarthritis type: primary Laterality: left Qualified Code(s): M16.12 - Unilateral primary osteoarthritis, left hip (14) Osteoporosis SNOMED Code(s): 43149029 Code(s): M81.0 - AGE-RELATED OSTEOPOROSIS W/O CURRENT PATHOLOGICAL FRACTURE Priority: Medium Current Visit: No Qualifiers: Osteoporosis type: unspecified Presence of current pathological fracture: unspecified Qualified Code(s): M81.0 - Age-related osteoporosis without current pathological fracture (15) Urinary incontinence SNOMED Code(s): 263572933 Code(s): R32 - UNSPECIFIED URINARY INCONTINENCE Priority: Low Current Visit: No Qualifiers: Urinary Incontinence type: unspecified incontinence Qualified Code(s): R32 - Unspecified urinary incontinence Problem List Initiated/Reviewed/Updated: Yes Plan: I/P: Acute: S/P right total knee arthroplasty - post-operative day 0 -DVT prophylaxis and pain management per primary care team -PT/OT -IS/RT -Monitor oxygen saturation -Titrate oxygen as needed -Home medications reviewed -Vital signs stable -Monitor labs -Pre-operative Hgb was 15.0 -Pre-operative GFR was 45 -Pre-operative creatinine was 1.16 -Pre-operative BUN was 27 -Pre-operative A1C was 5.7% Osteoarthritis of bilateral knee -Pain management per primary care team S/P left knee cortisone injection -Management by primary team Chronic: HTN Pre-Diabetes A-fib HLD MESHA Metabolic syndrome GERD Depression Osteoporosis OA Incontinence Heart valve dysfunction 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 Her PCP is Dr. Carlson Thank you for allowing us to participate in the care of this patient!! Requesting Provider: Dr. Thomas Date Consult Requested: 08/21/19 Patient History Reviewed: Yes Admission H&P Reviewed: Yes Notified Requestor: Yes
[2019-08-21] MEDS: ceFAZolin 2 GM in Premix Bag 1 BAG IV SCH ×2 (14:37→21:47)
[2019-08-21] MEDS ORDERED: Ketotifen 1 DROP EYEBOTH PRN (14:49)
[2019-08-21] MEDS: Acetaminophen/oxyCODONE 325-5 MG Tab PO PRN ×2 (18:47→23:13)
[2019-08-21] MEDS ORDERED: Simvastatin 10 MG Tab PO SCH (21:00)
[2019-08-21] MEDS ORDERED: Losartan 100 MG Tab PO SCH (21:00)
[2019-08-21] MEDS ORDERED: Metoprolol Succinate 50 MG Tab.ER PO SCH (21:00)
[2019-08-21] MEDS ORDERED: Docusate Sodium 100 MG Cap PO SCH ×2 (21:00)
[2019-08-21] MEDS: Famotidine 20 MG Tab PO SCH (21:44)
[2019-08-22] MEDS: Acetaminophen/oxyCODONE 325-5 MG Tab PO PRN ×3 (05:21→14:03)
[2019-08-22] MEDS: ceFAZolin 2 GM in Premix Bag 1 BAG IV SCH (05:52)
--- NOTE | 2019-08-22 07:12 | PCM.CONSN ---
- General Info Date of Service: 08/22/19 Admission Dx/Problem (Free Text): Admission Diagnosis/Problem Admission Diagnosis/Problem Osteoarthritis of knee Functional Status: Reports: Pain Controlled, Tolerating Diet, Ambulating, Urinating, Incentive Spirometry. Denies: New Symptoms - Review of Systems General: Reports: No Symptoms. Denies: Fever, Weakness HEENT: Reports: No Symptoms. Denies: Headaches, Sore Throat Pulmonary: Reports: No Symptoms. Denies: Shortness of Breath, Pleuritic Chest Pain, Cough, Sputum, Wheezing Cardiovascular: Reports: No Symptoms. Denies: Chest Pain, Palpitations, Dyspnea on Exertion Gastrointestinal: Reports: No Symptoms. Denies: Abdominal Pain, Constipation, Diarrhea, Nausea, Vomiting Genitourinary: Reports: No Symptoms. Denies: Pain Musculoskeletal: Reports: Leg Pain Skin: Reports: No Symptoms. Denies: Cyanosis Neurological: Reports: Difficulty Walking, Gait Disturbance. Denies: Confusion Psychiatric: Reports: No Symptoms - Patient Data Vitals - Most Recent: Last Vital Signs Temp 97.5 F 08/22/19 05:12 Pulse 61 08/22/19 05:12 Resp 16 08/22/19 05:12 BP 99/42 L 08/22/19 05:12 Pulse Ox 96 08/22/19 05:12 Weight - Most Recent: 132 lb 3.2 oz I&O - Last 24 Hours: Intake & Output 08/21/19 08/22/19 08/22/19 22:59 06:59 14:59 Intake Total 180 600 Balance 180 600 Lab Results Last 24 Hours: Laboratory Results - last 24 hr 08/22/19 Range/Units 05:54 WBC 10.11 H (3.98-10.04) K/mm3 RBC 4.09 (3.98-5.22) M/mm3 Hgb 12.6 D (11.2-15.7) gm/dl Hct 38.7 (34.1-44.9) % MCV 94.6 (79.4-94.8) fl MCH 30.8 (25.6-32.2) pg MCHC 32.6 (32.2-35.5) g/dl RDW Std Deviation 48.2 H (36.4-46.3) fL Plt Count 170 L (182-369) K/mm3 MPV 12.7 H (9.4-12.3) fl Med Orders - Current: Current Medications Apixaban (Eliquis) 2.5 mg PO BID [facility] Bisacodyl (Dulcolax) 5 mg PO DAILY PRN PRN Reason: Constipation Bupropion HCl (Wellbutrin Xl) 300 mg PO DAILY [facility] Cholecalciferol (Vitamin D3) 5,000 unit PO DAILY [facility] Cyclobenzaprine HCl (Flexeril) 5 mg PO TID PRN PRN Reason: Spasms Famotidine (Pepcid) 20 mg PO Q12H [facility] Last Admin: 08/21/19 21:44 Dose: 20 mg Levothyroxine Sodium (Levothyroxine) 125 mcg PO DAILY [facility] Losartan Potassium (Cozaar) 50 mg PO BID [facility] Magnesium Hydroxide (Milk Of Magnesia) 30 ml PO BID PRN PRN Reason: Constipation Metoprolol Succinate (Toprol Xl) 50 mg PO BEDTIME [facility] Last Admin: 08/21/19 21:46 Dose: 50 mg Morphine Sulfate (Morphine) 2 mg IVPUSH Q2H PRN PRN Reason: Breakthrough Pain Naloxone HCl (Narcan) 0.1 mg IVPUSH Q5M PRN PRN Reason: Oversedation Ondansetron HCl (Zofran) 4 mg IVPUSH Q6H PRN PRN Reason: Nausea/Vomiting Oxycodone/Acetaminophen (Percocet 325-5 Mg) 1 - 2 tab PO Q4H PRN PRN Reason: Pain Last Admin: 08/22/19 05:21 Dose: 1 tab Ketotifen 1 Drop 0 each EYEBOTH Q4H PRN PRN Reason: Allergies Senna (Senna) 8.6 mg PO BID PRN PRN Reason: Constipation Simvastatin (Zocor) 10 mg PO BEDTIME [facility] Last Admin: 08/21/19 21:46 Dose: 10 mg Discontinued Medications Bupivacaine HCl (Sensorcaine-Mpf 0.75%) Confirm Administered Dose 30 ml .ROUTE .STK-MED ONE Stop: 08/21/19 06:20 Bupivacaine HCl (Sensorcaine-Mpf 0.25%) Confirm Administered Dose 30 ml .ROUTE .STK-MED ONE Stop: 08/21/19 06:30 Last Admin: 08/21/19 08:11 Dose: 30 ml Bupivacaine HCl (Sensorcaine-Mpf 0.25%) Confirm Administered Dose 10 ml .ROUTE .STK-MED ONE Stop: 08/21/19 06:41 Last Admin: 08/21/19 08:36 Dose: 4 ml Cefazolin Sodium (Ancef) Confirm Administered Dose 2 gm .ROUTE .STK-MED ONE Stop: 08/21/19 06:19 Cefazolin Sodium (Ancef) Confirm Administered Dose 2 gm .ROUTE .STK-MED ONE Stop: 08/21/19 06:30 Last Admin: 08/21/19 08:06 Dose: 2 gm Morphine Sulfate 8 mg/Epinephrine HCl 0.3 mg/Cefuroxime Sodium 750 mg/Ketorolac Tromethamine 30 mg/Sodium Chloride 7.9 ml 0 mg .XX ONETIME ONE Stop: 08/21/19 08:31 Last Admin: 08/21/19 10:30 Dose: Not Given Docusate Sodium (Colace) 100 mg PO BID [facility] Ephedrine Sulfate (Ephedrine 25 Mg/5 Ml Syringe) Confirm Administered Dose 25 mg IV .STK-MED ONE Stop: 08/21/19 07:36 Epinephrine HCl (Adrenalin) Confirm Administered Dose 1 mg .ROUTE .STK-MED ONE Stop: 08/21/19 06:26 Fentanyl (Sublimaze) Confirm Administered Dose 100 mcg .ROUTE .STK-MED ONE Stop: 08/21/19 06:19 Fentanyl (Sublimaze) 50 mcg IVPUSH Q5M PRN PRN Reason: Pain Stop: 08/21/19 12:00 Hydromorphone HCl (Dilaudid) 0.5 mg IVPUSH Q10M PRN PRN Reason: Pain (severe 7-10) Stop: 08/21/19 12:00 Lactated Ringer's (Ringers, Lactated) 1,000 mls @ 125 mls/hr IV ASDIRECTED [facility] Stop: 08/21/19 23:00 Last Admin: 08/21/19 06:50 Dose: 125 mls/hr Cefazolin Sodium/Dextrose 2 gm (/ Premix) 50 mls @ 100 mls/hr IV Q8H [facility] Stop: 08/22/19 06:59 Last Admin: 08/22/19 05:52 Dose: 100 mls/hr Lactated Ringer's (Ringers, Lactated) Confirm Administered Dose 1,000 mls @ as directed .ROUTE .STK-MED ONE Stop: 08/21/19 08:10 Iodine (Iodine 2% Mild Tincture) Confirm Administered Dose 30 ml .ROUTE .STK- MED ONE Stop: 08/21/19 06:53 Last Admin: 08/21/19 08:04 Dose: 18 ml Lidocaine/Sodium Bicarbonate (Buffered Lidocaine 1% In Ns 8.4%) 0.25 ml IDERM ONETIME PRN PRN Reason: Prior to IV Start Stop: 08/21/19 18:00 Last Admin: 08/21/19 06:50 Dose: 0.25 ml Losartan Potassium (Cozaar) 50 mg PO BID [facility] Metoprolol Succinate (Toprol Xl) 50 mg PO DAILY [facility] Miscellaneous Medication (Phenylephrine 1 Mg/10 Ml-Ns) Confirm Administered Dose 1 mg IV .STK-MED ONE Stop: 08/21/19 08:13 Non-Formulary Medication (Docusate Sodium [Stool Softener]) 2 tab PO DAILY [facility] Ondansetron HCl (Zofran) Confirm Administered Dose 4 mg .ROUTE .STK-MED ONE Stop: 08/21/19 07:10 Ondansetron HCl (Zofran) 4 mg IVPUSH ONETIME PRN PRN Reason: Nausea/Vomiting Stop: 08/21/19 12:00 Propofol (Diprivan 20 Ml) Confirm Administered Dose 400 mg .ROUTE .STK-MED ONE Stop: 08/21/19 06:19 Ropivacaine (Naropin 0.5%) Confirm Administered Dose 30 ml .ROUTE .STK-MED ONE Stop: 08/21/19 06:26 Simvastatin (Zocor) 10 mg PO DAILY [facility] Sodium Chloride (Saline Flush) 10 ml FLUSH ASDIRECTED PRN PRN Reason: Keep Vein Open Stop: 08/21/19 18:00 Tranexamic Acid (Cyklokapron) Confirm Administered Dose 1,000 mg .ROUTE .STK- MED ONE Stop: 08/21/19 06:29 Last Admin: 08/21/19 08:17 Dose: 1,000 mg Triamcinolone Acetonide (Kenalog-40) Confirm Administered Dose 80 mg .ROUTE .STK -MED ONE Stop: 08/21/19 06:41 Last Admin: 08/21/19 08:36 Dose: 80 mg Vancomycin HCl (Vancomycin) Confirm Administered Dose 1 gm .ROUTE .STK-MED ONE Stop: 08/21/19 06:29 Last Admin: 08/21/19 08:12 Dose: 1 gm - Exam Quality Assessment: DVT Prophylaxis. No: Supplemental Oxygen, Urine Catheter General: Alert, Oriented, Cooperative, No Acute Distress HEENT: Pupils Equal, Pupils Reactive, Mucous Membr. Moist/[place] Neck: Supple, Trachea Midline Lungs: Clear to Auscultation, Normal Respiratory Effort Cardiovascular: Irregular Rhythm GI/Abdominal Exam: Normal Bowel Sounds, Soft, Non-Tender, No Distention (Female) Exam: Deferred Back Exam: Normal Inspection, Full Range of Motion Extremities: Normal Capillary Refill, Leg Pain, Limited Range of Motion, Other ( Bandage in place on right leg. Cooling pack in place. ) Peripheral Pulses: 2+: Radial (L), Radial (R), Dorsalis Pedis (L), Dorsalis Pedis (R) Skin: Warm, Dry, Intact Wound/Incisions: Dressing Dry and Intact Neurological: No New Focal Deficit Psy/Mental Status: Alert, Normal Affect, Normal Mood Sepsis Event Note - Evaluation Sepsis Screening Result: No Definite Risk - Focused Exam Vital Signs: Vital Signs Temp Pulse Resp BP Pulse Ox 08/22/19 05:12 97.5 F 61 16 99/42 L 96 08/22/19 00:01 74 17 102/58 L 94 L 08/21/19 22:28 97.5 F 08/21/19 22:03 79 97 08/21/19 21:49 28 L 132/92 H 96 08/21/19 21:48 83 18 139/85 97 08/21/19 21:46 73 139/85 08/21/19 19:38 97.5 F 70 12 126/74 99 Date Exam was Performed: 08/22/19 Time Exam was Performed: 11:09 Consult PN Assessment/Plan POD#: 1 Procedures: Procedures APPLY FOREARM SPLINT (09/17/16) ASSAY OF LIPASE (07/03/16) ASSAY OF TROPONIN QUANT (07/03/16) BLOOD TYPING SEROLOGIC ABO (02/07/18) BLOOD TYPING SEROLOGIC RH(D) (02/07/18) BREAST TOMOSYNTHESIS BI (04/28/19) CARDIOVASCULAR STRESS TEST (06/05/19) CHEST X-RAY 2VW FRONTAL&LATL (07/03/16) COMP SCREEN MAMMOGRAM ADD-ON (02/19/16) COMPLETE CBC AUTOMATED (02/07/18) COMPLETE CBC W/AUTO DIFF WBC (08/18/16) COMPREHEN METABOLIC PANEL (02/07/18) CT ABD & PELVIS W/O CONTRAST (08/18/16) CULTURE SCREEN ONLY (12/03/14) DXA BONE DENSITY AXIAL (08/10/16) ECG MONIT/REPRT UP TO 48 HRS (05/23/15) ECG MONIT/REPRT UP TO 48 HRS (05/23/15) EGD BIOPSY SINGLE/MULTIPLE (08/10/16) ELECTROCARDIOGRAM TRACING (07/03/16) EMERGENCY DEPT VISIT (09/17/16) EMERGENCY DEPT VISIT (08/18/16) EMERGENCY DEPT VISIT (07/03/16) EVALUATION OF WHEEZING (05/23/15) GAIT TRAINING THERAPY (02/07/18) HT MUSCLE IMAGE SPECT MULT (06/05/19) HYDRATE IV INFUSION ADD-ON (08/18/16) MEASURE BLOOD OXYGEN LEVEL (02/07/18) MR-STAPH DNA AMP PROBE (02/07/18) OFFICE/OUTPATIENT VISIT EST (12/03/14) OT EVAL LOW COMPLEX 30 MIN (02/07/18) PROTHROMBIN TIME (08/18/16) PT EVAL LOW COMPLEX 20 MIN (02/07/18) RBC ANTIBODY SCREEN (02/07/18) ROUTINE VENIPUNCTURE (02/07/18) SCR MAMMO BI INCL CAD (04/28/19) SELF CARE MNGMENT TRAINING (02/07/18) STREP A AG IA (12/03/14) THER/PROPH/DIAG INJ IV PUSH (08/18/16) THERAPEUTIC ACTIVITIES (02/07/18) THERAPEUTIC EXERCISES (02/07/18) THROMBOPLASTIN TIME PARTIAL (08/18/16) TISSUE EXAM BY PATHOLOGIST (08/10/16) TX/PRO/DX INJ NEW DRUG ADDON (08/18/16) URINALYSIS AUTO W/SCOPE (08/18/16) US URINE CAPACITY MEASURE (02/07/18) X-RAY EXAM HIP UNI 1 VIEW (02/07/18) X-RAY EXAM OF HAND (09/17/16) X-RAY EXAM OF WRIST (09/17/16) X-RAY XM UPR GI TRC 2CNTRST (08/18/16) (1) S/P total knee arthroplasty SNOMED Code(s): 2892842572005, 769846588, 4546054555907 Code(s): Z96.659 - PRESENCE OF UNSPECIFIED ARTIFICIAL KNEE JOINT Priority: High Current Visit: Yes Qualifiers: Laterality: right Qualified Code(s): Z96.651 - Presence of right artificial knee joint (2) Pre-diabetes SNOMED Code(s): 502890264 Code(s): R73.03 - PREDIABETES Priority: Medium Current Visit: No (3) HLD (hyperlipidemia) SNOMED Code(s): 30921099 Code(s): E78.5 - HYPERLIPIDEMIA, UNSPECIFIED Priority: Low Current Visit : No Qualifiers: Hyperlipidemia type: unspecified Qualified Code(s): E78.5 - Hyperlipidemia , unspecified (4) Valvular heart disease SNOMED Code(s): 599713 Code(s): I38 - ENDOCARDITIS, VALVE UNSPECIFIED Priority: Medium Current Visit: No (5) Cerebral ischemia SNOMED Code(s): 824893155 Code(s): I67.82 - CEREBRAL ISCHEMIA Priority: Low Current Visit: No (6) S/P thyroidectomy SNOMED Code(s): 512647537, 04672079, 553494517 Code(s): Z98.890 - OTHER SPECIFIED POSTPROCEDURAL STATES Priority: Low Current Visit: No (7) A-fib SNOMED Code(s): 74307353 Code(s): I48.91 - UNSPECIFIED ATRIAL FIBRILLATION Priority: Medium Current Visit: No Qualifiers: Atrial fibrillation type: unspecified Qualified Code(s): I48.91 - Unspecified atrial fibrillation (8) CHF (congestive heart failure) SNOMED Code(s): 60460798 Code(s): I50.9 - HEART FAILURE, UNSPECIFIED Priority: Medium Current Visit: No Qualifiers: Heart failure type: unspecified Heart failure chronicity: unspecified Qualified Code(s): I50.9 - Heart failure, unspecified (9) Gastroesophageal reflux disease SNOMED Code(s): 220100866 Code(s): K21.9 - GASTRO-ESOPHAGEAL REFLUX DISEASE WITHOUT ESOPHAGITIS Priority: Low Current Visit: No Qualifiers: Esophagitis presence: esophagitis presence not specified Qualified Code(s) : K21.9 - Gastro-esophageal reflux disease without esophagitis (10) HTN (hypertension) SNOMED Code(s): 07937953 Code(s): I10 - ESSENTIAL (PRIMARY) HYPERTENSION Priority: Medium Current Visit: No Qualifiers: Hypertension type: unspecified Qualified Code(s): I10 - Essential (primary ) hypertension (11) History of TIA (transient ischemic attack) SNOMED Code(s): 369343247 Code(s): Z86.73 - PRSNL HX OF TIA (TIA), AND CEREB INFRC W/O RESID DEFICITS Priority: Low Current Visit: No (12) Hypothyroidism SNOMED Code(s): 92826696 Code(s): E03.9 - HYPOTHYROIDISM, UNSPECIFIED Priority: Low Current Visit : No Qualifiers: Hypothyroidism type: unspecified Qualified Code(s): E03.9 - Hypothyroidism , unspecified (13) Osteoarthritis SNOMED Code(s): 368377018 Code(s): M19.90 - UNSPECIFIED OSTEOARTHRITIS, UNSPECIFIED SITE Priority: High Current Visit: No Qualifiers: Osteoarthritis location: hip Osteoarthritis type: primary Laterality: left Qualified Code(s): M16.12 - Unilateral primary osteoarthritis, left hip (14) Osteoporosis SNOMED Code(s): 92867884 Code(s): M81.0 - AGE-RELATED OSTEOPOROSIS W/O CURRENT PATHOLOGICAL FRACTURE Priority: Medium Current Visit: No Qualifiers: Osteoporosis type: unspecified Presence of current pathological fracture: unspecified Qualified Code(s): M81.0 - Age-related osteoporosis without current pathological fracture (15) Urinary incontinence SNOMED Code(s): 726754281 Code(s): R32 - UNSPECIFIED URINARY INCONTINENCE Priority: Low Current Visit: No Qualifiers: Urinary Incontinence type: unspecified incontinence Qualified Code(s): R32 - Unspecified urinary incontinence Problem List Initiated/Reviewed/Updated: Yes My Orders Last 24 Hours: My Active Orders 08/21/19 14:49 Patient's Own Medication [Ptom] 0 each EYEBOTH Q4H PRN 08/22/19 09:00 Apixaban [Eliquis] 2.5 mg PO BID Cholecalciferol (Vitamin D3) [Vitamin D3] 5,000 unit PO DAILY Levothyroxine 125 mcg PO DAILY buPROPion [Wellbutrin XL] 300 mg PO DAILY Plan: I/P: Acute: S/P right total knee arthroplasty - post-operative day 1 -DVT prophylaxis and pain management per primary care team -PT/OT -IS/RT -Monitor oxygen saturation -Titrate oxygen as needed -Home medications reviewed -Vital signs stable -Monitor labs -Pre-operative Hgb was 15.0; Now 12.6 -Pre-operative GFR was 45; Now 48 -Pre-operative creatinine was 1.16; Now 1.1 -Pre-operative BUN was 27; Now 21 -Pre-operative A1C was 5.7% Osteoarthritis of bilateral knee -Pain management per primary care team S/P left knee cortisone injection -Management by primary team Chronic: HTN Pre-Diabetes A-fib HLD MESHA Metabolic syndrome GERD Depression Osteoporosis OA Incontinence Heart valve dysfunction 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 Her PCP is Dr. Carlson From a hospitalist standpoint Catherine is doing well. She has been up ambulating and working with therapies. Her labs and vital signs remain stable. She has urinated and is off of oxygen. She has been utilizing her IS. Her pain is controlled. She is cleared for discharge pending primary team and PT/OT agreement. Thank you for allowing us to participate in the care of this patient!!
--- NOTE | 2019-08-22 07:55 | PCM.SURGPN ---
- General Info Date of Service: 08/22/19 POD#: 1 Functional Status: Reports: Pain Controlled, Tolerating Diet, Ambulating, Urinating, Incentive Spirometry, Other (The pt states she slept well. She states she was able to ambulate in the halls yesterday.) - Patient Data Vitals - Most Recent: Last Vital Signs Temp 97.5 F 08/22/19 05:12 Pulse 61 08/22/19 05:12 Resp 16 08/22/19 05:12 BP 99/42 L 08/22/19 05:12 Pulse Ox 96 08/22/19 05:12 Weight - Most Recent: 132 lb 3.2 oz I&O - Last 24 Hours: Intake & Output 08/21/19 08/22/19 08/22/19 22:59 06:59 14:59 Intake Total 180 600 Balance 180 600 Lab Results Last 24 Hrs: Laboratory Results - last 24 hr 08/22/19 08/22/19 Range/Units 05:54 05:54 WBC 10.11 H (3.98-10.04) K/mm3 RBC 4.09 (3.98-5.22) M/mm3 Hgb 12.6 D (11.2-15.7) gm/dl Hct 38.7 (34.1-44.9) % MCV 94.6 (79.4-94.8) fl MCH 30.8 (25.6-32.2) pg MCHC 32.6 (32.2-35.5) g/dl RDW Std Deviation 48.2 H (36.4-46.3) fL Plt Count 170 L (182-369) K/mm3 MPV 12.7 H (9.4-12.3) fl Sodium 141 (136-145) mEq/L Potassium 4.0 (3.5-5.1) mEq/L Chloride 107 (98-107) mEq/L Carbon Dioxide 24 (21-32) mEq/L Anion Gap 14.0 (5-15) BUN 21 H (7-18) mg/dL Creatinine 1.1 H (0.55-1.02) mg/dL Est Cr Clr Drug Dosing 33.74 mL/min Estimated GFR (MDRD) 48 (>60) mL/min BUN/Creatinine Ratio 19.1 H (14-18) Glucose 177 H (83-115) mg/dL Calcium 9.0 (8.5-10.1) mg/dL Total Bilirubin 0.4 (0.2-1.0) mg/dL AST 20 (15-37) U/L ALT 37 (14-59) U/L Alkaline Phosphatase 58 (46-116) U/L Total Protein 6.0 L (6.4-8.2) g/dl Albumin 3.1 L (3.4-5.0) g/dl Globulin 2.9 gm/dL Albumin/Globulin Ratio 1.1 (1-2) Med Orders - Current: Current Medications Apixaban (Eliquis) 2.5 mg PO BID [facility] Bisacodyl (Dulcolax) 5 mg PO DAILY PRN PRN Reason: Constipation Bupropion HCl (Wellbutrin Xl) 300 mg PO DAILY [facility] Cholecalciferol (Vitamin D3) 5,000 unit PO DAILY [facility] Cyclobenzaprine HCl (Flexeril) 5 mg PO TID PRN PRN Reason: Spasms Famotidine (Pepcid) 20 mg PO Q12H [facility] Last Admin: 08/21/19 21:44 Dose: 20 mg Levothyroxine Sodium (Levothyroxine) 125 mcg PO DAILY [facility] Losartan Potassium (Cozaar) 50 mg PO BID [facility] Magnesium Hydroxide (Milk Of Magnesia) 30 ml PO BID PRN PRN Reason: Constipation Metoprolol Succinate (Toprol Xl) 50 mg PO BEDTIME [facility] Last Admin: 08/21/19 21:46 Dose: 50 mg Morphine Sulfate (Morphine) 2 mg IVPUSH Q2H PRN PRN Reason: Breakthrough Pain Naloxone HCl (Narcan) 0.1 mg IVPUSH Q5M PRN PRN Reason: Oversedation Ondansetron HCl (Zofran) 4 mg IVPUSH Q6H PRN PRN Reason: Nausea/Vomiting Oxycodone/Acetaminophen (Percocet 325-5 Mg) 1 - 2 tab PO Q4H PRN PRN Reason: Pain Last Admin: 08/22/19 05:21 Dose: 1 tab Ketotifen 1 Drop 0 each EYEBOTH Q4H PRN PRN Reason: Allergies Senna (Senna) 8.6 mg PO BID PRN PRN Reason: Constipation Simvastatin (Zocor) 10 mg PO BEDTIME [facility] Last Admin: 08/21/19 21:46 Dose: 10 mg Discontinued Medications Bupivacaine HCl (Sensorcaine-Mpf 0.75%) Confirm Administered Dose 30 ml .ROUTE .STK-MED ONE Stop: 08/21/19 06:20 Bupivacaine HCl (Sensorcaine-Mpf 0.25%) Confirm Administered Dose 30 ml .ROUTE .STK-MED ONE Stop: 08/21/19 06:30 Last Admin: 08/21/19 08:11 Dose: 30 ml Bupivacaine HCl (Sensorcaine-Mpf 0.25%) Confirm Administered Dose 10 ml .ROUTE .STK-MED ONE Stop: 08/21/19 06:41 Last Admin: 08/21/19 08:36 Dose: 4 ml Cefazolin Sodium (Ancef) Confirm Administered Dose 2 gm .ROUTE .STK-MED ONE Stop: 08/21/19 06:19 Cefazolin Sodium (Ancef) Confirm Administered Dose 2 gm .ROUTE .STK-MED ONE Stop: 08/21/19 06:30 Last Admin: 08/21/19 08:06 Dose: 2 gm Morphine Sulfate 8 mg/Epinephrine HCl 0.3 mg/Cefuroxime Sodium 750 mg/Ketorolac Tromethamine 30 mg/Sodium Chloride 7.9 ml 0 mg .XX ONETIME ONE Stop: 08/21/19 08:31 Last Admin: 08/21/19 10:30 Dose: Not Given Docusate Sodium (Colace) 100 mg PO BID [facility] Ephedrine Sulfate (Ephedrine 25 Mg/5 Ml Syringe) Confirm Administered Dose 25 mg IV .STK-MED ONE Stop: 08/21/19 07:36 Epinephrine HCl (Adrenalin) Confirm Administered Dose 1 mg .ROUTE .STK-MED ONE Stop: 08/21/19 06:26 Fentanyl (Sublimaze) Confirm Administered Dose 100 mcg .ROUTE .STK-MED ONE Stop: 08/21/19 06:19 Fentanyl (Sublimaze) 50 mcg IVPUSH Q5M PRN PRN Reason: Pain Stop: 08/21/19 12:00 Hydromorphone HCl (Dilaudid) 0.5 mg IVPUSH Q10M PRN PRN Reason: Pain (severe 7-10) Stop: 08/21/19 12:00 Lactated Ringer's (Ringers, Lactated) 1,000 mls @ 125 mls/hr IV ASDIRECTED [facility] Stop: 08/21/19 23:00 Last Admin: 08/21/19 06:50 Dose: 125 mls/hr Cefazolin Sodium/Dextrose 2 gm (/ Premix) 50 mls @ 100 mls/hr IV Q8H [facility] Stop: 08/22/19 06:59 Last Admin: 08/22/19 05:52 Dose: 100 mls/hr Lactated Ringer's (Ringers, Lactated) Confirm Administered Dose 1,000 mls @ as directed .ROUTE .STK-MED ONE Stop: 08/21/19 08:10 Iodine (Iodine 2% Mild Tincture) Confirm Administered Dose 30 ml .ROUTE .STK- MED ONE Stop: 08/21/19 06:53 Last Admin: 08/21/19 08:04 Dose: 18 ml Lidocaine/Sodium Bicarbonate (Buffered Lidocaine 1% In Ns 8.4%) 0.25 ml IDERM ONETIME PRN PRN Reason: Prior to IV Start Stop: 08/21/19 18:00 Last Admin: 08/21/19 06:50 Dose: 0.25 ml Losartan Potassium (Cozaar) 50 mg PO BID [facility] Metoprolol Succinate (Toprol Xl) 50 mg PO DAILY [facility] Miscellaneous Medication (Phenylephrine 1 Mg/10 Ml-Ns) Confirm Administered Dose 1 mg IV .STK-MED ONE Stop: 08/21/19 08:13 Non-Formulary Medication (Docusate Sodium [Stool Softener]) 2 tab PO DAILY [facility] Ondansetron HCl (Zofran) Confirm Administered Dose 4 mg .ROUTE .STK-MED ONE Stop: 08/21/19 07:10 Ondansetron HCl (Zofran) 4 mg IVPUSH ONETIME PRN PRN Reason: Nausea/Vomiting Stop: 08/21/19 12:00 Propofol (Diprivan 20 Ml) Confirm Administered Dose 400 mg .ROUTE .STK-MED ONE Stop: 08/21/19 06:19 Ropivacaine (Naropin 0.5%) Confirm Administered Dose 30 ml .ROUTE .STK-MED ONE Stop: 08/21/19 06:26 Simvastatin (Zocor) 10 mg PO DAILY [facility] Sodium Chloride (Saline Flush) 10 ml FLUSH ASDIRECTED PRN PRN Reason: Keep Vein Open Stop: 08/21/19 18:00 Tranexamic Acid (Cyklokapron) Confirm Administered Dose 1,000 mg .ROUTE .STK- MED ONE Stop: 08/21/19 06:29 Last Admin: 08/21/19 08:17 Dose: 1,000 mg Triamcinolone Acetonide (Kenalog-40) Confirm Administered Dose 80 mg .ROUTE .STK -MED ONE Stop: 08/21/19 06:41 Last Admin: 08/21/19 08:36 Dose: 80 mg Vancomycin HCl (Vancomycin) Confirm Administered Dose 1 gm .ROUTE .STK-MED ONE Stop: 08/21/19 06:29 Last Admin: 08/21/19 08:12 Dose: 1 gm - Exam Wound/Incisions: Dressing Dry and Intact General: Alert, Cooperative, No Acute Distress Lungs: Normal Respiratory Effort Extremities: Other (NVS intact for BLE. Vangie's negative. Independent SLR RLE. ) Sepsis Event Note - Evaluation Sepsis Screening Result: No Definite Risk - Focused Exam Vital Signs: Vital Signs Temp Pulse Resp BP Pulse Ox 08/22/19 05:12 97.5 F 61 16 99/42 L 96 08/22/19 00:01 74 17 102/58 L 94 L 08/21/19 22:28 97.5 F 08/21/19 22:03 79 97 08/21/19 21:49 28 L 132/92 H 96 08/21/19 21:48 83 18 139/85 97 08/21/19 21:46 73 139/85 Date Exam was Performed: 08/22/19 Time Exam was Performed: 07:53 - Problem List Review Problem List Initiated/Reviewed/Updated: Yes - My Orders Last 24 Hours: Active Orders 24 hr Category Date Time Status Patient Status [ADT] Routine ADT 08/22/19 03:40 Active Notify Provider Consults [RC] ASDIRECTED Care 08/21/19 11:16 Active Pulse Oximetry [RC] .PRN Care 08/21/19 07:18 Active Ready for Discharge [RC] PER UNIT ROUTINE Care 08/22/19 07:52 Ordered Vital Signs [RC] Q4HR Care 08/21/19 07:18 Active Consult to Physician [CONS] Routine Cons 08/21/19 11:15 Active Regular Diet [DIET] Diet 08/21/19 Lunch Active Apixaban [Eliquis] Med 08/22/19 09:00 Active 2.5 mg PO BID Cholecalciferol (Vitamin D3) [Vitamin D3] Med 08/22/19 09:00 Active 5,000 unit PO DAILY Famotidine [Pepcid] Med 08/21/19 21:00 Active 20 mg PO Q12H Levothyroxine Med 08/22/19 09:00 Active 125 mcg PO DAILY Losartan [Cozaar] Med 08/22/19 09:00 Active 50 mg PO BID Magnesium Hydroxide [Milk of Magnesia] Med 08/21/19 06:58 Active 30 ml PO BID PRN Metoprolol Succinate [Toprol XL] Med 08/21/19 21:00 Active 50 mg PO BEDTIME Morphine Med 08/21/19 06:59 Active 2 mg IVPUSH Q2H PRN Patient's Own Medication [Ptom] Med 08/21/19 14:49 Active 0 each EYEBOTH Q4H PRN Sennosides [Senna] Med 08/21/19 06:59 Active 8.6 mg PO BID PRN Simvastatin [Zocor] Med 08/21/19 21:00 Active 10 mg PO BEDTIME bisacodyL [Dulcolax] Med 08/21/19 06:57 Active 5 mg PO DAILY PRN buPROPion [Wellbutrin XL] Med 08/22/19 09:00 Active 300 mg PO DAILY Medication Orders Apixaban (Eliquis) 2.5 mg PO BID [facility] Bisacodyl (Dulcolax) 5 mg PO DAILY PRN PRN Reason: Constipation Bupropion HCl (Wellbutrin Xl) 300 mg PO DAILY [facility] Cholecalciferol (Vitamin D3) 5,000 unit PO DAILY [facility] Cyclobenzaprine HCl (Flexeril) 5 mg PO TID PRN PRN Reason: Spasms Famotidine (Pepcid) 20 mg PO Q12H [facility] Last Admin: 08/21/19 21:44 Dose: 20 mg Levothyroxine Sodium (Levothyroxine) 125 mcg PO DAILY [facility] Losartan Potassium (Cozaar) 50 mg PO BID [facility] Magnesium Hydroxide (Milk Of Magnesia) 30 ml PO BID PRN PRN Reason: Constipation Metoprolol Succinate (Toprol Xl) 50 mg PO BEDTIME [facility] Last Admin: 08/21/19 21:46 Dose: 50 mg Morphine Sulfate (Morphine) 2 mg IVPUSH Q2H PRN PRN Reason: Breakthrough Pain Naloxone HCl (Narcan) 0.1 mg IVPUSH Q5M PRN PRN Reason: Oversedation Ondansetron HCl (Zofran) 4 mg IVPUSH Q6H PRN PRN Reason: Nausea/Vomiting Oxycodone/Acetaminophen (Percocet 325-5 Mg) 1 - 2 tab PO Q4H PRN PRN Reason: Pain Last Admin: 08/22/19 05:21 Dose: 1 tab Admin: 08/21/19 23:13 Dose: 2 tab Admin: 08/21/19 18:47 Dose: 1 tab Ketotifen 1 Drop 0 each EYEBOTH Q4H PRN PRN Reason: Allergies Senna (Senna) 8.6 mg PO BID PRN PRN Reason: Constipation Simvastatin (Zocor) 10 mg PO BEDTIME [facility] Last Admin: 08/21/19 21:46 Dose: 10 mg - Assessment Assessment (Free Text/Narrative):: POD#1 - right TKA with left knee cortisone injection - Plan Plan (Free Text/Narrative):: 1. Hgb 12.6. 2. Creat 1.1 and GFR 48. Orders per Hospitalist service. 3. Pt will resume Eliquis use today. 4. Discharge to home today if cleared by Hospitalist service and therapies. The pt's case was discussed with Dr. Thomas.
--- NOTE | 2019-08-22 08:26 | PCM48HPAN ---
Post Anesthesia Note - EVALUATION WITHIN 48HRS OF ANESTHETIC Vital Signs in Normal Range: Yes Patient Participated in Evaluation: Yes Respiratory Function Stable: Yes Airway Patent: Yes Cardiovascular Function Stable: Yes Hydration Status Stable: Yes Pain Control Satisfactory: Yes Nausea and Vomiting Control Satisfactory: Yes Mental Status Recovered: Yes Vital Signs: Last Vital Signs Temp 36.4 C 08/22/19 05:12 Pulse 61 08/22/19 05:12 Resp 16 08/22/19 05:12 BP 99/42 L 08/22/19 05:12 Pulse Ox 96 08/22/19 05:12 - COMMENTS/OBSERVATIONS Free Text/Narrative:: no anesthesia complications noted
[2019-08-22] MEDS: Famotidine 20 MG Tab PO SCH (08:36)
[2019-08-22 08:55] VITALS: BP 109/59
[2019-08-22] MEDS ORDERED: DOCUSATE SODIUM PO SCH (09:00)
[2019-08-22] MEDS ORDERED: buPROPion 150 MG Tab.ER PO SCH (09:00)
[2019-08-22] MEDS ORDERED: Simvastatin 10 MG Tab PO SCH (09:00)
[2019-08-22] MEDS ORDERED: Levothyroxine 125 MCG Tab PO SCH (09:00)
[2019-08-22] MEDS ORDERED: Cholecalciferol (Vitamin D3) 5,000 UNIT Tab PO SCH (09:00)
[2019-08-22] MEDS ORDERED: Metoprolol Succinate 50 MG Tab.ER PO SCH (09:00)
[2019-08-22] MEDS ORDERED: Losartan 25 MG Tab PO SCH (09:00)
[2019-08-22] MEDS ORDERED: Apixaban 2.5 MG Tab PO SCH (09:00)
[2019-08-22 09:11] VITALS: PULSE 60
--- NOTE | 2019-08-23 23:00 | PCM.DCSUM1 ---
Discharge Summary - Hospital Course Brief History: Catherine is an 79 yo female who underwent right TKA with left knee cortisone injection with Dr. Thomas on 08-21-2019. The procedure was completed under spinal anesthesia with sedation. A post-operative adductor canal block was provided by the Anesthesia service. The pt tolerated the procedure well and was admitted to the Medical-Surgical Unit. Medical management was provided by the Hospitalist service. The Hospitalist service monitored the pt's cardiac and renal status. The pt's Hgb on POD#1 was 12.6 and GFR was 48. On POD#1, the pt resumed use Eliquis PO BID. SCDs and TEDs were ordered for VTE prophylaxis. A Mepilex dressing was placed at the incision site at the time of surgery and remained clean and dry. The pt participated in P.T. and O.T. and progressed well. The pt was allowed to WBAT and used a FWW for mobility. On POD#1, the pt was deemed appropriate to discharge to home with her . - Discharge Data Discharge Date: 08/22/19 Discharge Disposition: Home, Self-Care 01 Condition: Good - Referral to Home Health Primary Care Physician: Albert Carlson MD - Patient Summary/Data Consults: Consultations 08/21/19 06:34 OT Evaluation and Treatment [CONS] Routine PT Evaluation and Treatment [CONS] Routine 08/21/19 11:15 Consult to Physician [CONS] Routine - Patient Instructions Diet: Usual Diet as Tolerated Activity: Apply Ice, As Tolerated, Elevate Extremity, Full Weight Bearing Driving: Do Not Drive Showering/Bathing: May Shower Wound/Incision Care: Keep Operative Site/Wound Site Clean and Dry, Do NOT Change Dressing Notify Provider of: Fever, Increased Pain, Swelling and Redness, Drainage, Nausea and/or Vomiting Other/Special Instructions: Please get up and moving around EVERY HOUR while awake. This helps to prevent blood clots. Please use your walker and have help with mobility as needed. Take a short walk in your home every hour while awake. Please continue with Eliquis use as you were previously instructed. At home, please complete the exercises that you learned during the Hospital stay. Schedule for physical therapy. Use the pain medication as needed. The medication may cause drowsiness and constipation. Contact your primary care provider for instructions if you are constipated. You may use a stool softener like docusate sodium or Colace 100mg twice daily and/or a laxative like Miralax daily for constipation. Increase your water and fiber intake while you are using the pain medication. Discontinue use of the pain medication as soon as able. Please do not use other medications that may cause drowsiness (other pain medications, anxiety pills, cold medications, sleeping pills, etc) while using the prescription pain medication. Do not use alcohol while using the pain medication. You may use acetaminophen or Tylenol for pain management, however, please ensure you are not using over 4000 mg or 4 grams of acetaminophen per day from all sources. Your pain medication has 325mg of acetaminophen per tablet. Wear the GREY hose during the day and you may remove these at night. Elevate the limb to decrease swelling. Place ice to the area often. Place a towel between your skin and the blue pad. Use the incentive spirometer often. Take deep breaths throughout the day. Please keep the dressing in place until follow-up. Notify the Clinic if the dressing becomes saturated. Increase your protein intake while you are healing. If you have diabetes, please closely monitor your blood sugars and notify your primary care provider with abnormal values. Elevated blood sugars increases the risk of infection. Call the Clinic with questions or concerns - [phone]. - Discharge Plan *PRESCRIPTION DRUG MONITORING PROGRAM REVIEWED*: No *COPY OF PRESCRIPTION DRUG MONITORING REPORT IN PATIENT MARCOS: No Prescriptions/Med Rec: Acetaminophen/oxyCODONE [Percocet 325-5 MG] 1 - 2 tab PO Q4H PRN #60 tablet PRN Reason: Pain Home Medications: Home Meds Apixaban [Eliquis] 2.5 mg PO BID 07/03/16 [History] Aspirin [Halfprin] 81 mg PO BEDTIME 07/03/16 [History] Cholecalciferol (Vitamin D3) [Vitamin D] 5,000 unit PO DAILY 07/03/16 [History] Losartan [Cozaar] 50 mg PO BID 07/03/16 [History] Denosumab [Prolia] 60 mg SQ Q6M 02/04/18 [History] Diclofenac Sodium 1 dose TOP ASDIRECTED PRN 02/04/18 [History] Fexofenadine [Emily] 180 mg PO DAILY PRN 02/04/18 [History] Furosemide 20 mg PO DAILY 02/04/18 [History] Ketotifen Fumarate [Allergy Eye Drops] 1 drop EYEBOTH Q4H PRN 02/04/18 [History] Simvastatin 10 mg PO BEDTIME 02/04/18 [History] Acetaminophen [Tylenol] 1 tab PO ASDIRECTED PRN 08/21/19 [History] Docusate Sodium [Stool Softener] 2 tab PO DAILY 08/21/19 [History] Levothyroxine 125 mcg PO DAILY 08/21/19 [History] Metoprolol Succinate 50 mg PO BEDTIME 08/21/19 [History] buPROPion HCl [Wellbutrin Xl] 300 mg PO DAILY 08/21/19 [History] Acetaminophen/oxyCODONE [Percocet 325-5 MG] 1 - 2 tab PO Q4H PRN #60 tablet 09/07 [Rx] Sennosides [Senna] 8.6 mg PO BID PRN tablet 08/22/19 [Rx] bisacodyL [Dulcolax] 5 mg PO DAILY PRN tablet 08/22/19 [Rx] Referrals: Clara Wallace PA-C [Physician Cat Hooker] - (Please follow up with VENITA Mendiola as follows: Wednesday, August 29, 2019 at 2:15 pm Wednesday, September 05, 2019 at 2:15 pm Wednesday, October 03, 2019 at 2:15 pm) - Discharge Summary/Plan Comment DC Time >30 min.: No - Patient Data Vitals - Most Recent: Last Vital Signs Temp 97.3 F 08/22/19 08:07 Pulse 60 08/22/19 08:07 Resp 18 08/22/19 08:07 BP 109/59 L 08/22/19 08:54 Pulse Ox 100 08/22/19 14:27 Weight - Most Recent: 132 lb 3.2 oz Med Orders - Current: Current Medications Discontinued Medications Apixaban (Eliquis) 2.5 mg PO BID [facility] Last Admin: 08/22/19 08:36 Dose: 2.5 mg Bisacodyl (Dulcolax) 5 mg PO DAILY PRN PRN Reason: Constipation Bupivacaine HCl (Sensorcaine-Mpf 0.75%) Confirm Administered Dose 30 ml .ROUTE .STK-MED ONE Stop: 08/21/19 06:20 Bupivacaine HCl (Sensorcaine-Mpf 0.25%) Confirm Administered Dose 30 ml .ROUTE .STK-MED ONE Stop: 08/21/19 06:30 Last Admin: 08/21/19 08:11 Dose: 30 ml Bupivacaine HCl (Sensorcaine-Mpf 0.25%) Confirm Administered Dose 10 ml .ROUTE .STK-MED ONE Stop: 08/21/19 06:41 Last Admin: 08/21/19 08:36 Dose: 4 ml Bupropion HCl (Wellbutrin Xl) 300 mg PO DAILY [facility] Last Admin: 08/22/19 08:36 Dose: 300 mg Cefazolin Sodium (Ancef) Confirm Administered Dose 2 gm .ROUTE .STK-MED ONE Stop: 08/21/19 06:19 Cefazolin Sodium (Ancef) Confirm Administered Dose 2 gm .ROUTE .STK-MED ONE Stop: 08/21/19 06:30 Last Admin: 08/21/19 08:06 Dose: 2 gm Cholecalciferol (Vitamin D3) 5,000 unit PO DAILY [facility] Last Admin: 08/22/19 08:36 Dose: 5,000 unit Morphine Sulfate 8 mg/Epinephrine HCl 0.3 mg/Cefuroxime Sodium 750 mg/Ketorolac Tromethamine 30 mg/Sodium Chloride 7.9 ml 0 mg .XX ONETIME ONE Stop: 08/21/19 08:31 Last Admin: 08/21/19 10:30 Dose: Not Given Cyclobenzaprine HCl (Flexeril) 5 mg PO TID PRN PRN Reason: Spasms Last Admin: 08/22/19 08:45 Dose: 5 mg Docusate Sodium (Colace) 100 mg PO BID [facility] Ephedrine Sulfate (Ephedrine 25 Mg/5 Ml Syringe) Confirm Administered Dose 25 mg IV .STK-MED ONE Stop: 08/21/19 07:36 Epinephrine HCl (Adrenalin) Confirm Administered Dose 1 mg .ROUTE .STK-MED ONE Stop: 08/21/19 06:26 Famotidine (Pepcid) 20 mg PO Q12H [facility] Last Admin: 08/22/19 08:36 Dose: 20 mg Fentanyl (Sublimaze) Confirm Administered Dose 100 mcg .ROUTE .STK-MED ONE Stop: 08/21/19 06:19 Fentanyl (Sublimaze) 50 mcg IVPUSH Q5M PRN PRN Reason: Pain Stop: 08/21/19 12:00 Hydromorphone HCl (Dilaudid) 0.5 mg IVPUSH Q10M PRN PRN Reason: Pain (severe 7-10) Stop: 08/21/19 12:00 Lactated Ringer's (Ringers, Lactated) 1,000 mls @ 125 mls/hr IV ASDIRECTED [facility] Stop: 08/21/19 23:00 Last Admin: 08/21/19 06:50 Dose: 125 mls/hr Cefazolin Sodium/Dextrose 2 gm (/ Premix) 50 mls @ 100 mls/hr IV Q8H [facility] Stop: 08/22/19 06:59 Last Admin: 08/22/19 05:52 Dose: 100 mls/hr Lactated Ringer's (Ringers, Lactated) Confirm Administered Dose 1,000 mls @ as directed .ROUTE .STK-MED ONE Stop: 08/21/19 08:10 Iodine (Iodine 2% Mild Tincture) Confirm Administered Dose 30 ml .ROUTE .STK- MED ONE Stop: 08/21/19 06:53 Last Admin: 08/21/19 08:04 Dose: 18 ml Levothyroxine Sodium (Levothyroxine) 125 mcg PO DAILY [facility] Last Admin: 08/22/19 08:15 Dose: 125 mcg Lidocaine/Sodium Bicarbonate (Buffered Lidocaine 1% In Ns 8.4%) 0.25 ml IDERM ONETIME PRN PRN Reason: Prior to IV Start Stop: 08/21/19 18:00 Last Admin: 08/21/19 06:50 Dose: 0.25 ml Losartan Potassium (Cozaar) 50 mg PO BID [facility] Losartan Potassium (Cozaar) 50 mg PO BID [facility] Last Admin: 08/22/19 08:54 Dose: Not Given Magnesium Hydroxide (Milk Of Magnesia) 30 ml PO BID PRN PRN Reason: Constipation Metoprolol Succinate (Toprol Xl) 50 mg PO DAILY [facility] Metoprolol Succinate (Toprol Xl) 50 mg PO BEDTIME [facility] Last Admin: 08/21/19 21:46 Dose: 50 mg Miscellaneous Medication (Phenylephrine 1 Mg/10 Ml-Ns) Confirm Administered Dose 1 mg IV .STK-MED ONE Stop: 08/21/19 08:13 Morphine Sulfate (Morphine) 2 mg IVPUSH Q2H PRN PRN Reason: Breakthrough Pain Naloxone HCl (Narcan) 0.1 mg IVPUSH Q5M PRN PRN Reason: Oversedation Non-Formulary Medication (Docusate Sodium [Stool Softener]) 2 tab PO DAILY [facility] Ondansetron HCl (Zofran) 4 mg IVPUSH Q6H PRN PRN Reason: Nausea/Vomiting Ondansetron HCl (Zofran) Confirm Administered Dose 4 mg .ROUTE .STK-MED ONE Stop: 08/21/19 07:10 Ondansetron HCl (Zofran) 4 mg IVPUSH ONETIME PRN PRN Reason: Nausea/Vomiting Stop: 08/21/19 12:00 Oxycodone/Acetaminophen (Percocet 325-5 Mg) 1 - 2 tab PO Q4H PRN PRN Reason: Pain Last Admin: 08/22/19 14:03 Dose: 1 tab Ketotifen 1 Drop 0 each EYEBOTH Q4H PRN PRN Reason: Allergies Propofol (Diprivan 20 Ml) Confirm Administered Dose 400 mg .ROUTE .STK-MED ONE Stop: 08/21/19 06:19 Ropivacaine (Naropin 0.5%) Confirm Administered Dose 30 ml .ROUTE .STK-MED ONE Stop: 08/21/19 06:26 Senna (Senna) 8.6 mg PO BID PRN PRN Reason: Constipation Last Admin: 08/22/19 08:48 Dose: 8.6 mg Simvastatin (Zocor) 10 mg PO DAILY [facility] Simvastatin (Zocor) 10 mg PO BEDTIME [facility] Last Admin: 08/21/19 21:46 Dose: 10 mg Sodium Chloride (Saline Flush) 10 ml FLUSH ASDIRECTED PRN PRN Reason: Keep Vein Open Stop: 08/21/19 18:00 Tranexamic Acid (Cyklokapron) Confirm Administered Dose 1,000 mg .ROUTE .STK- MED ONE Stop: 08/21/19 06:29 Last Admin: 08/21/19 08:17 Dose: 1,000 mg Triamcinolone Acetonide (Kenalog-40) Confirm Administered Dose 80 mg .ROUTE .STK -MED ONE Stop: 08/21/19 06:41 Last Admin: 08/21/19 08:36 Dose: 80 mg Vancomycin HCl (Vancomycin) Confirm Administered Dose 1 gm .ROUTE .STK-MED ONE Stop: 08/21/19 06:29 Last Admin: 08/21/19 08:12 Dose: 1 gm
--- NOTE | 2019-08-25 07:22 | PCM.OPNOTE ---
- General Post-Op/Procedure Note Date of Surgery/Procedure: 08/21/19 Operative Procedure(s): right total knee arthroplasty with left knee corticosteroid injection Pre Op Diagnosis: bilateral knee osteoarthrosis Post-Op Diagnosis: Same Anesthesia Technique: Local, MAC, Spinal Primary Surgeon: Edgar Thomas Anesthesia Provider: Tristen Montano Civil Engineering Manager: Clara Wallace Civil Engineering Manager: Claire Luna EBBuffy in mLs: 5 Complications: None Condition: Good Free Text/Narrative:: 08/21 9mm 29x9
--- NOTE | 2019-08-25 07:47 | OR ---
DATE OF OPERATION: 08/21/2019 SURGEON: Edgar Thomas MD OPERATION PERFORMED: Right total knee arthroplasty with left knee corticosteroid injection. PREOPERATIVE DIAGNOSIS: Bilateral knee osteoarthrosis. POSTOPERATIVE DIAGNOSIS: Bilateral knee osteoarthrosis. ANESTHESIA: Local MAC with spinal. ANESTHESIA PROVIDER: Tristen Montano CRNA TIN POURER: Clara Wallace PA-C, and Claire Luna LPN. ESTIMATED BLOOD LOSS: 5 mL. COMPLICATIONS: None. CONDITION: Stable. IMPLANTS: 1. Colbert size 3 cemented PS femur. 2. Colbert size 3 cemented Drasco tibial baseplate. 3. Cristopher size 3, 9 mm PS X3 polyethylene. 4. Colbert size 29 x 9 mm cemented asymmetric patella. DESCRIPTION OF PROCEDURE: The patient was identified in the preop holding area. Proper site was marked and identified by the surgeon. The patient was taken back to the operating theater. After adequate anesthesia, the patient's right lower extremity had a nonsterile tourniquet applied and it was sterilely prepped and draped in the usual sterile fashion. OR time-out was performed. The patient received 2 g IV Ancef. At this time, the right lower extremity was exsanguinated. Tourniquet was insufflated to 300 mmHg. Standard medial parapatellar incision was made. Medial parapatellar arthrotomy was created. Deep fibers of the MCL were raised and anterior fat pad was resected. At this time, attention was turned to the patella. Patella measured a 22, it was resected to a 13 for a 29 x 9 mm patella. Drill holes were then drilled and found to be in adequate position. The drill was then drilled in the distal femur and the intramedullary distal femoral cutting guide was then placed. 8 mm was resected off the distal femur and was found to be an adequate resection. Sizing guide was placed. It was found to be a size 3 cemented PS femur that was shown on the implant record at the beginning of this dictation. The drill holes were drilled for the epicondylar axis using Whitesides line and epicondyles as reference. At this time, the 4-in-1 cutting block was placed. An anterior posterior and anterior and posterior chamfer cuts were then completed. Box cut was completed at this time. Attention was turned to the tibia. The posterior medial lateral retractors were placed. The extramedullary tibial guide was placed. It was placed in the old footprint of the ACL. It was aligned with the center of the ankle and 0 degrees of slope, 9 mm was then resected off the unaffected side. There was found to be an acceptable reduction. At this time, posterior osteophytes were removed along with medial and lateral meniscus. A trial implant was placed with a correct sized tibia that was mentioned at the beginning of the dictation. A Colbert size 3 9 mm PS X3 polyethylene insert was then placed. The patient's knee was brought through range of motion. The patella was tracking centrally and was stable to varus and valgus stress. Alignment was found to be roughly at 0 degrees. The tibia was stamped and drilled in proper rotation. The universal tibial base plate was impacted in place. Next, the Colbert size 3 cemented PS femur impacted into place and the Colbert size 3 9 mm PS X3 polyethylene insert was placed. The patient's knee was brought into full extension. The patella was then cemented in place at this time. One liter dilute Betadine solution was irrigated through the knee along with 3 L of pulse lavage irrigation with Ancef. Periarticular injection was then completed. The patient's knee was brought through a range of motion. Once the cement had time to set up and it was found to be stable to varus valgus stress, the patella was tracking centrally with full range of motion. At this time, a #2 barbed suture was used for closure of the medial parapatellar arthrotomy. Topical tranexamic acid was placed. 2-0 Vicryl was used subcutaneously, Prineo was used for the skin. The patient tolerated the procedure well and was sent to the PACU in stable condition. After this was completed, under sterile technique, 2 mL of 40 mg Kenalog and 4 mL of 0.25% Marcaine were injected in the left knee. The patient tolerated all procedures well. SANDRA /[id number] JEN
== END 2019-08-22 14:45 | disposition home or self-care (01) ==
LOC: JD.SDS 06:20 → JD.MS 07:43 → JD.SDS 14:51
PROVIDERS: ADMIT Orthopaedic Surgery; ATTEND Orthopaedic Surgery
DX: M17.0 Bilateral primary osteoarthritis of knee (principal); G89.18 Other acute postprocedural pain; I11.0 Hypertensive heart disease with heart failure; I50.9 Heart failure, unspecified; M81.0 Age-related osteoporosis without current pathological fracture; E11.9 Type 2 diabetes mellitus without complications; E78.00 Pure hypercholesterolemia, unspecified; K21.9 Gastro-esophageal reflux disease without esophagitis; E03.9 Hypothyroidism, unspecified; F32.9 Major depressive disorder, single episode, unspecified; Z87.891 Personal history of nicotine dependence; Z79.82 Long term (current) use of aspirin; Z79.899 Other long term (current) drug therapy; Z79.01 Long term (current) use of anticoagulants; Z91.041 Radiographic dye allergy status; Z79.2 Long term (current) use of antibiotics; Z91.048 Other nonmedicinal substance allergy status
CPT/HCPCS: 20610; 27447; 36415; 64447; 73560; 80053; 82962; 85027; 87641; 97110; 97116; 97161; 97165; 97530; 97535; A9270; C1713; C1776; G0378; J0171; J0690; J0697; J1885; J2270; J2370; J2405; J2704; J2795; J3010; J3301; J3370; J3490; J7120; 01402; 64450; 99203; 99213

== ENCOUNTER 2020-09-16 08:31 | Observation (INO) | payer MEDICARE, BC ==
--- NOTE | 2020-09-13 13:47 | PCM.PREANE ---
Preanesthetic Assessment - Procedure Proposed Procedure: Left Total Knee Arthroplasty - Anesthesia/Transfusion/Family Hx Anesthesia History: Prior Anesthesia Without Reaction Family History of Anesthesia Reaction: No Transfusion History: No Prior Transfusion(s) Intubation History: Unknown - Review of Systems General: No Symptoms, Fatigue Pulmonary: No Symptoms (MESHA-CPAP/ Quit smokin), Shortness of Breath Cardiovascular: No Symptoms (History of A-Fib, HTN, Diastolic CHF valvular disease), Dyspnea on Exertion, Lightheadedness Gastrointestinal: No Symptoms (GERD), Constipation Neurological: No Symptoms (History of TIA(patient does not recall)/history of essential tremors-on beta tashi/motion sickness/vertigo) Other: Reports: None (Elevated Bun, CR, and GFR= 44: decreased kidney function noted.), Easy Bleeding (Eliquis last dose: Wednesday09/13/2020), Easy Bruising, Diabetes (prediabetic/ am blood sugar= 94 @0849), Thyroid Problems (Hypothyroid), Sinus Problem (seasonal allergies: rhinitis), Depression - Physical Assessment NPO Status Date: 09/15/20 NPO Status Time: 23:50 Vital Signs: HR:67 Sat:98% Temp:98.1 B/P:187/93 Resp:20 Height: 1.6 m Weight: 58 kg ASA Class: 3 Mental Status: Alert & Oriented x3 Airway Class: Mallampati = 2 Dentition: Reports: Normal Dentition, Missing Tooth/Teeth, Caries Thyro-Mental Finger Breadths: 3 Mouth Opening Finger Breadths: 3 ROM/Head Extension: Full Lungs: Clear to Auscultation, Normal Respiratory Effort Cardiovascular: Regular Rate, No Murmurs, Irregular Rhythm - Imaging/EKG Impressions: EKG: A- Fib rate= 71 CXR: negative Echocardiogram: EF= 60-65%, severe biatrial dilatation, mile to moderate tricuspid regurgitation. - Allergies Allergies/Adverse Reactions: Allergies Allergy/AdvReac Type Severity Reaction Status Date / Time cat dander Allergy Cannot Verified 09/13/20 09:14 Remember Iodinated Contrast Media AdvReac hot flashes Verified 09/13/20 09:14 - Anesthesia Plan Pre-Op Medication Ordered: Beta Tashi, Other (Preoperative oral medications (lyrica, tylenol, oxycodone @ 0845)) Beta Tashi: Metoprolol Med Last Dose Date: 09/16/20 Med Last Dose Time: 07:30 - Acknowledgements Anesthesia Type Planned: Spinal (Left Adductor Canal Block under US guidance for post operative pain control requested by Dr. Thomas.) Pt an Appropriate Candidate for the Planned Anesthesia: Yes Alternatives and Risks of Anesthesia Discussed w Pt/Guardian: Yes Pt/Guardian Understands and Agrees with Anesthesia Plan: Yes PreAnesthesia Questionnaire HEENT History: Reports: Allergic Rhinitis, Other (See Below) Other HEENT History: eustachian tube dysfunction, bruxism, tonsillitis, wears glasses Cardiovascular History: Reports: Afib, Heart Failure, High Cholesterol, Hypertension, Other (See Below) Other Cardiovascular History: valvular heart disease Respiratory History: Reports: Sleep Apnea, Other (See Below) Other Respiratory History: seasonal allergies Gastrointestinal History: Reports: Gastritis, GERD, Other (See Below) Other Gastrointestinal History: reflux Genitourinary History: Reports: Urinary Incontinence 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 (See Below) Other OB/BYN History: right breast lump Musculoskeletal History: Reports: Osteoarthritis, Osteoporosis, Other (See Below) Other Musculoskeletal History: right great toe bunion, right foot metatrsalgia, synovial cyst of popliteal space, carpal tunnel syndrome, degnerative joint disease, knee pain Neurological History: Reports: TIA, Other (See Below) Other Neuro History: cerebral ischemia Psychiatric History: Reports: Depression Other Psychiatric History: malaise, fatigue Endocrine/Metabolic History: Reports: Diabetes, Type II, Hypothyroidism, Osteoporosis Other Endocrine/Metabolic History: thryroid removed due to hyperthyroid 2000 Hematologic History: Reports: None Immunologic History: Reports: None Oncologic (Cancer) History: Reports: None Dermatologic History: Reports: Other (See Below) Other Dermatologic History: skin lesion, cyst excison - Infectious Disease History Infectious Disease History: Reports: None - Past Surgical History Head Surgeries/Procedures: Reports: None HEENT Surgical History: Reports: Cataract Surgery, Eye Surgery, Tonsillectomy Cardiovascular Surgical History: Reports: None Respiratory Surgical History: Reports: None GI Surgical History: Reports: Cholecystectomy, Colonoscopy, EGD Female Surgical History: Reports: D&C, Other (See Below) Other Female Surgeries/Procedures: miscarriage x 1 Endocrine Surgical History: Reports: Thyroidectomy Neurological Surgical History: Reports: Other (See Below) Other Neurological Surgeries/Procedures: back surgery Musculoskeletal Surgical History: Reports: Arthroscopic Procedure, Carpal Tunnel, Hip Replacement Oncologic Surgical History: Reports: None - SUBSTANCE USE Tobacco Use Status *Q: Never Tobacco User Recreational Drug Use History: No - HOME MEDS Home Medications: Home Meds Apixaban [Eliquis] 2.5 mg PO BID 07/03/16 [History] Aspirin [Halfprin] 81 mg PO BEDTIME 07/03/16 [History] Cholecalciferol (Vitamin D3) [Vitamin D] 5,000 unit PO DAILY 07/03/16 [History] Denosumab [Prolia] 60 mg SQ Q6M 02/04/18 [History] Diclofenac Sodium 1 dose TOP ASDIRECTED PRN 02/04/18 [History] Fexofenadine [Emily] 180 mg PO DAILY PRN 02/04/18 [History] Furosemide 20 mg PO DAILY 02/04/18 [History] Ketotifen Fumarate [Allergy Eye Drops] 1 drop EYEBOTH Q4H PRN 02/04/18 [History] Simvastatin 10 mg PO BEDTIME 02/04/18 [History] Levothyroxine 125 mcg PO DAILY 08/21/19 [History] Metoprolol Succinate 50 mg PO BID 08/21/19 [History] buPROPion HCL [Wellbutrin Xl] 300 mg PO DAILY 08/21/19 [History] Calcium Carbonate/Vitamin D3 [Os-[place] 500+D] 1 tab PO DAILY 09/13/20 [History] Zinc Amino Acid Chelate [Zinc] 100 mg PO DAILY 09/13/20 [History] oxyCODONE 5 - 10 mg PO Q6H PRN #40 tab 09/16/20 [Rx] - CURRENT (IN HOUSE) MEDS Current Meds: Current Medications Acetaminophen (Acetaminophen 325 Mg Tab) 975 mg PO ONETIME JUSTUS Stop: 09/16/20 13:00 Morphine Sulfate 8 mg/Epinephrine HCl 0.3 mg/Cefuroxime Sodium 750 mg/Ketorolac Tromethamine 30 mg/Sodium Chloride 7.9 ml 0 mg .XX ASDIRECTED PRN PRN Reason: Pain Stop: 09/16/20 18:00 Lactated Ringer's (Ringers, Lactated) 1,000 mls @ 125 mls/hr IV ASDIRECTED JUSTUS Stop: 09/16/20 23:00 Lidocaine/Sodium Bicarbonate (Lidocaine 1%/Sod Bicarbonate In Ns 8.4% 1 Ml Syringe) 0.25 ml IDERM ONETIME PRN PRN Reason: Prior to IV Start Stop: 09/16/20 18:00 Oxycodone HCl (Oxycodone Er 10 Mg Tab.Er) 10 mg PO ONETIME JUSTUS Stop: 09/16/20 13:00 Pregabalin (Pregabalin 25 Mg Cap) 50 mg PO ONETIME JUSTUS Stop: 09/16/20 13:00 Sodium Chloride (Sodium Chloride 0.9% 10 Ml Syringe) 10 ml FLUSH ASDIRECTED PRN PRN Reason: Keep Vein Open Stop: 09/16/20 18:00
--- NOTE | 2020-09-13 14:07 | PCM.SN.2 ---
- Free Text/Narrative Note: Left selective femoral nerve block at the adductor canal for post-procedure pain control under US guidance requested by Dr. Thomas. Time Out: 1209 Start: 1209 End: 1216 Chart reviewed. Consent signed. Questions answered. Appropriate monitors applied. Time out performed. Left mid-shaft femur identified with ultrasound, scanning medially of femur, the femoral artery in the adductor canal visualized, and the femoral nerve located laterally to the artery. The skin was prepped lateral to the ultrasound probe with chlorahexadine times two. The 21ga 4 insulated block needle was inserted under direct ultrasound guidance into the adductor canal. 25mL of 0.5% ropivacaine with 1:200,000 epinephrine was injected circumferentially around the nerve with intermittent negative aspiration noted. Patient tolerated the procedure well. Sterile technique noted along with sterile gloves, mask, and sterile probe cover. See picture on progress note and vital signs on nurses notes. Block completed in PACU. Kayley Flores CRNA
[~2020-09-16 08:31] MED LIST changes: +Acetaminophen 325 MG Tab PO SCH; -Bupivacaine 0.75% 30 ML SDV ONE; +EPINEPHrine 1 MG/ML SDV ONE; +Ketamine 500 mg/10 ML MDV ONE; +Ketorolac 30 MG/ML SDV ONE; +Lactated Ringers 2,000 ML ONE; +Lidocaine 1% 4 ML ONE; +Midazolam 1 MG/ML 2 ML SDV ONE; +Ondansetron 4 MG/2 ML SDV ONE; +Pregabalin 25 MG Cap PO SCH; +Ropivacaine 0.5% 5 MG/ML 30 ML SDV ONE; -ceFAZolin 1 GM Vial ONE; +oxyCODONE ER 10 MG TAB.ER PO SCH
[2020-09-16] MEDS ORDERED: Scopolamine 1.5 MG Transdermal Patch TRDERM ONE (09:30)
[2020-09-16] MEDS ORDERED: ePHEDrine 50 MG/ML SDV ONE (09:36)
[2020-09-16] MEDS ORDERED: Vancomycin 1 GM SDV ONE (09:44)
[2020-09-16] MEDS ORDERED: fentaNYL 100 MCG/2 ML SDV IVPUSH PRN (10:23)
[2020-09-16] MEDS ORDERED: ePHEDrine 50 MG/ML SDV IVPUSH PRN (10:23)
[2020-09-16] MEDS ORDERED: diphenhydrAMINE 50 MG/ML SDV IVPUSH PRN (10:23)
[2020-09-16] MEDS ORDERED: HYDROmorphone 0.5 MG/0.5 ML Syringe IVPUSH PRN (10:23)
[2020-09-16] MEDS ORDERED: Ondansetron 4 MG/2 ML SDV IVPUSH PRN ×2 (10:23→17:04)
[2020-09-16] MEDS: Morphine 8 MG, EPINEPHrine 0.3 MG, Cefuroxime 750 MG, Ketorolac 30 MG, Sodium Chloride ... PRN ×10 (10:48→11:25)
[2020-09-16] MEDS: Vancomycin 1 GM SDV ONE ×2 (10:50→11:31)
--- NOTE | 2020-09-16 12:04 | PCM.POSTAN ---
POST ANESTHESIA ASSESSMENT - MENTAL STATUS Mental Status: Alert - VITAL SIGNS Vital Signs: Last Vital Signs Temp 97.2 09/16/20 1153 Pulse 66 09/16/20 1153 Resp 12 09/16/20 1153 BP 118/74 09/16/20 1153 Pulse Ox 100% 09/16/20 1153 - RESPIRATORY Respiratory Status: Respiratory Rate WNL, Airway Patent, O2 Saturation Stable, Supplemental Oxygen - CARDIOVASCULAR CV Status: Pulse Rate WNL, Blood Pressure Stable - GASTROINTESTINAL GI Status: No Symptoms - POST OP HYDRATION Hydration Status: Adequate & Stable
--- NOTE | 2020-09-16 12:50 | CR ---
Left knee: AP and lateral views of the left knee were obtained. Comparison: Prior CT left knee study of 08/21/20. Knee prosthesis is seen. Components are aligned. Underlying bony structures are intact. Soft tissue air is seen. Patellar prosthesis is also noted. No acute underlying bony abnormality is otherwise seen. Impression: 1. Satisfactory postop radiographic appearance of recently placed left knee prosthesis. Diagnostic code #2
--- NOTE | 2020-09-16 13:46 | PCM48HPAN ---
Post Anesthesia Note - EVALUATION WITHIN 48HRS OF ANESTHETIC Vital Signs in Normal Range: Yes Patient Participated in Evaluation: Yes Respiratory Function Stable: Yes Airway Patent: Yes Cardiovascular Function Stable: Yes Hydration Status Stable: Yes Pain Control Satisfactory: Yes Nausea and Vomiting Control Satisfactory: Yes Mental Status Recovered: Yes Vital Signs: Last Vital Signs Temp 36.3 C 09/16/20 13:20 Pulse 77 09/16/20 13:20 Resp 16 09/16/20 13:20 BP 137/69 09/16/20 13:20 Pulse Ox 99 09/16/20 13:20
[2020-09-16] MEDS ORDERED: oxyCODONE 5 MG Tab PO PRN (14:09)
[2020-09-16] MEDS ORDERED: KETOTIFEN EYEBOTH PRN (15:16)
[2020-09-16] MEDS ORDERED: Diclofenac Sodium 1% Gel 100 GM Tube TOP PRN (15:16)
--- NOTE | 2020-09-16 15:20 | PCM.SN.2 ---
#1 Interpretation EKG Date: 09/16/20 Time: 12:30 Rhythm: A-Fib Rate (Beats/Min): 65 [place]: Normal P-Wave: Absent QRS: Normal ST-T: Normal QT: Normal EKG Interpretation Comments: PVC
--- NOTE | 2020-09-16 15:51 | PCM.OPNOTE ---
- General Post-Op/Procedure Note Date of Surgery/Procedure: 09/16/20 Operative Procedure(s): left total knee arthroplasty with joe robotic assist Pre Op Diagnosis: left knee osteoarthrosis Post-Op Diagnosis: Same Anesthesia Technique: Local, MAC, Spinal Primary Surgeon: Edgar Thomas Anesthesia Provider: Kayley Flores [employer] Operator: Clara Wallace [employer] Operator: Claire Luna EBL in mLs: 5 Complications: None Condition: Good Free Text/Narrative:: 4 femur 3 tibia 9mm 29x9
[2020-09-16] MEDS ORDERED: Docusate Sodium 100 MG Cap PO PRN (17:04)
[2020-09-16] MEDS ORDERED: Naloxone 0.4 MG/ML SDV IVPUSH PRN (17:04)
[2020-09-16] MEDS ORDERED: Magnesium Hydroxide 400 MG/5 ML Susp 30 ML Cup PO PRN (17:04)
[2020-09-16] MEDS ORDERED: Sennosides 8.6 MG Tab PO PRN (17:04)
[2020-09-16] MEDS ORDERED: Morphine 2 MG/ML SYRINGE IVPUSH PRN (17:04)
[2020-09-16] MEDS ORDERED: Bisacodyl 5 MG Tab PO PRN (17:04)
[2020-09-16] MEDS ORDERED: Cyclobenzaprine 10 MG Tab PO PRN (17:10)
[2020-09-16] MEDS ORDERED: hydrALAZINE 20 MG/ML SDV IVPUSH PRN ×2 (17:40→20:23)
--- NOTE | 2020-09-16 17:49 | PCM.CONS ---
H&P History of Present Illness - General Date of Service: 09/16/20 Admit Problem/Dx: Admission Diagnosis/Problem Admission Diagnosis/Problem Knee joint operation Source of Information: Patient - History of Present Illness Initial Comments - Free Text/Narative: Patient is an 80-year-old female with a history of chronic atrial fibrillation, prediabetes and a high blood pressure who underwent left knee arthroplasty today by Dr. Thomas. After the procedure, I was asked to comanagement for her atrial fibrillation, hypertension and prediabetes. I encountered the patient in her room. Patient told me that she has pain from the left knee which is 4 out of 10. She also feels tired. Otherwise she is fine. Denies headache, dizziness, chest pain, shortness of breath, abdominal pain, nausea, vomiting, or dysuria. She has been on Eliquis for her atrial fibrillation. Eliquis was on hold this morning for the procedure today. Left Knee Pain Score (Numeric/FACES): 0 - Related Data Allergies/Adverse Reactions: Allergies Allergy/AdvReac Type Severity Reaction Status Date / Time cat dander Allergy Cannot Verified 09/16/20 10:09 Remember Iodinated Contrast Media AdvReac hot flashes Verified 09/16/20 10:09 Home Medications: Home Meds Apixaban [Eliquis] 2.5 mg PO BID 07/03/16 [History] Aspirin [Halfprin] 81 mg PO BEDTIME 07/03/16 [History] Cholecalciferol (Vitamin D3) [Vitamin D] 5,000 unit PO DAILY 07/03/16 [History] Denosumab [Prolia] 60 mg SQ Q6M 02/04/18 [History] Diclofenac Sodium 1 dose TOP ASDIRECTED PRN 02/04/18 [History] Fexofenadine [Emily] 180 mg PO DAILY PRN 02/04/18 [History] Furosemide 20 mg PO DAILY 02/04/18 [History] Ketotifen Fumarate [Allergy Eye Drops] 1 drop EYEBOTH Q4H PRN 02/04/18 [History] Simvastatin 10 mg PO BEDTIME 02/04/18 [History] Levothyroxine 125 mcg PO DAILY 08/21/19 [History] Metoprolol Succinate 50 mg PO BID 08/21/19 [History] buPROPion HCL [Wellbutrin Xl] 300 mg PO DAILY 08/21/19 [History] Calcium Carbonate/Vitamin D3 [[place] 500+D] 1 tab PO DAILY 09/13/20 [History] Zinc Amino Acid Chelate [Zinc] 100 mg PO DAILY 09/13/20 [History] oxyCODONE 5 - 10 mg PO Q6H PRN #40 tab 09/16/20 [Rx] Past Medical History HEENT History: Reports: Allergic Rhinitis, Other (See Below) Other HEENT History: eustachian tube dysfunction, bruxism, tonsillitis, wears glasses Cardiovascular History: Reports: Afib, Heart Failure, High Cholesterol, Hypertension, Other (See Below) Other Cardiovascular History: valvular heart disease Respiratory History: Reports: Sleep Apnea, Other (See Below) Other Respiratory History: seasonal allergies Gastrointestinal History: Reports: Gastritis, GERD, Other (See Below) Other Gastrointestinal History: reflux Genitourinary History: Reports: Urinary Incontinence DRILLER AND REAMER History: Reports: Other (See Below) Other OB/BYN History: right breast lump Musculoskeletal History: Reports: Osteoarthritis, Osteoporosis, Other (See Below) Other Musculoskeletal History: right great toe bunion, right foot metatrsalgia, synovial cyst of popliteal space, carpal tunnel syndrome, degnerative joint disease, knee pain Neurological History: Reports: TIA, Other (See Below) Other Neuro History: cerebral ischemia Psychiatric History: Reports: Depression Other Psychiatric History: malaise, fatigue Endocrine/Metabolic History: Reports: Diabetes, Type II, Hypothyroidism, Osteoporosis Other Endocrine/Metabolic History: thryroid removed due to hyperthyroid 2000 Hematologic History: Reports: None Immunologic History: Reports: None Oncologic (Cancer) History: Reports: None Dermatologic History: Reports: Other (See Below) Other Dermatologic History: skin lesion, cyst excison - Infectious Disease History Infectious Disease History: Reports: None - Past Surgical History Head Surgeries/Procedures: Reports: None HEENT Surgical History: Reports: Cataract Surgery, Eye Surgery, Tonsillectomy Cardiovascular Surgical History: Reports: None Respiratory Surgical History: Reports: None GI Surgical History: Reports: Cholecystectomy, Colonoscopy, EGD Female Surgical History: Reports: D&C, Other (See Below) Other Female Surgeries/Procedures: miscarriage x 1 Endocrine Surgical History: Reports: Thyroidectomy Neurological Surgical History: Reports: Other (See Below) Other Neurological Surgeries/Procedures: back surgery Musculoskeletal Surgical History: Reports: Arthroscopic Procedure, Carpal Tunnel, Hip Replacement Oncologic Surgical History: Reports: None Social & Family History - Family History Family Medical History: No Pertinent Family History (Denies genetic diseases in the family) - Tobacco Use Tobacco Use Status *Q: Never Tobacco User - Caffeine Use Caffeine Use: Reports: Tea - Recreational Drug Use Recreational Drug Use: No Drug Use in Last 12 Months: No H&P Review of Systems - Review of Systems: Review Of Systems: See Below General: Reports: Fatigue HEENT: Reports: No Symptoms Pulmonary: Reports: No Symptoms Cardiovascular: Reports: No Symptoms Gastrointestinal: Reports: No Symptoms Genitourinary: Reports: No Symptoms Musculoskeletal: Reports: Leg Pain Skin: Reports: No Symptoms Psychiatric: Reports: No Symptoms Neurological: Reports: No Symptoms Hematologic/Lymphatic: Reports: No Symptoms Immunologic: Reports: No Symptoms Exam - Exam Exam: See Below - Vital Signs Vital Signs: Last Vital Signs Temp 36.3 C 09/16/20 16:46 Pulse 52 L 09/16/20 17:02 Resp 14 09/16/20 16:46 BP 144/64 H 09/16/20 17:02 Pulse Ox 96 09/16/20 17:02 Weight: 58 kg - Exam General: Alert, Oriented, Cooperative HEENT: Conjunctiva Clear, EOMI, Pupils Equal, Pupils Reactive Neck: Supple, Trachea Midline, Full Range of Motion Lungs: Clear to Auscultation, Normal Respiratory Effort Cardiovascular: Irregular Rhythm GI/Abdominal Exam: Normal Bowel Sounds, Soft, Non-Tender, No Organomegaly, No Distention Extremities: Other (Left knee wrapped, dressing dry) Skin: Warm, Dry, Intact Neurological: Cranial Nerves Intact, Reflexes Equal Bilateral, Strength Equal Bilateral, Normal Speech, Normal Tone, Sensation Intact Neuro Extensive - Mental Status: Alert, Oriented x3, Normal Mood/Affect Neuro Extensive - Motor, Sensory, Reflexes: CN II-XII Intact, Normal Reflexes Psychiatric: Alert, Normal Affect, Normal Mood - Patient Data Lab Results Last 24 hrs: Laboratory Results - last 24 hr 09/16/20 09/16/20 09/16/20 Range/Units 08:49 08:49 12:28 PT 11.9 (9.7-12.0) SECONDS INR 1.11 APTT 31.9 H (21.7-31.4) SECONDS POC Glucose 94 102 (83-110) mg/dL Sepsis Event Note - Focused Exam Vital Signs: Vital Signs Temp Temp Pulse Pulse Resp BP BP 09/16/20 17:02 52 L 144/64 H 09/16/20 16:47 73 09/16/20 16:46 36.3 C 60 14 148/83 H 09/16/20 16:37 61 120/86 09/16/20 16:02 56 L 136/77 09/16/20 15:44 36.4 C 53 L 12 159/75 H 09/16/20 15:41 36.4 C 55 L 159/75 H 09/16/20 15:32 53 L 159/68 H 09/16/20 15:02 68 166/92 H 09/16/20 14:52 26 L 164/75 H 09/16/20 14:49 36.2 C 54 L 14 161/65 H 09/16/20 14:24 36.2 C 63 14 152/76 H 09/16/20 13:55 36.2 C 62 14 155/76 H 09/16/20 13:20 36.3 C 77 16 137/69 09/16/20 13:05 36.3 C 70 16 128/74 09/16/20 12:55 36.3 C 70 16 128/74 09/16/20 12:40 36.3 C 71 17 131/55 L 09/16/20 12:25 72 21 H 132/67 09/16/20 12:10 36.0 C L 70 15 116/63 09/16/20 11:53 36.2 C 66 12 118/74 09/16/20 09:40 159/72 H 09/16/20 09:30 164/75 H 09/16/20 09:10 177/95 H 09/16/20 09:00 169/104 H 09/16/20 08:58 176/77 H 09/16/20 08:40 36.7 C 67 20 187/93 H Pulse Ox Pulse Ox 09/16/20 17:02 96 09/16/20 16:47 99 09/16/20 16:46 99 09/16/20 16:37 98 09/16/20 16:02 90 L 09/16/20 15:44 98 09/16/20 15:41 93 L 09/16/20 15:32 98 09/16/20 15:02 96 09/16/20 14:52 09/16/20 14:49 99 09/16/20 14:24 100 09/16/20 13:55 100 100 09/16/20 13:20 99 09/16/20 13:05 99 99 09/16/20 12:55 99 09/16/20 12:40 96 09/16/20 12:25 98 09/16/20 12:10 99 09/16/20 11:53 100 100 09/16/20 09:40 09/16/20 09:30 09/16/20 09:10 09/16/20 09:00 09/16/20 08:58 09/16/20 08:40 98 Consult PN Assessment/Plan POD#: 0 Procedures: Procedures APPLY FOREARM SPLINT (09/17/16) ASSAY OF LIPASE (07/03/16) ASSAY OF TROPONIN QUANT (07/03/16) BLOOD TYPING SEROLOGIC ABO (02/07/18) BLOOD TYPING SEROLOGIC RH(D) (02/07/18) BREAST TOMOSYNTHESIS BI (06/18/20) CARDIOVASCULAR STRESS TEST (06/05/19) CHEST X-RAY 2VW FRONTAL&LATL (07/03/16) COMP SCREEN MAMMOGRAM ADD-ON (02/19/16) COMPLETE CBC AUTOMATED (08/21/19) COMPLETE CBC W/AUTO DIFF WBC (08/18/16) COMPREHEN METABOLIC PANEL (08/21/19) CT ABD & PELVIS W/O CONTRAST (08/18/16) CT LOWER EXTREMITY W/O DYE (08/21/20) CULTURE SCREEN ONLY (12/03/14) DRAIN/INJ JOINT/BURSA W/O US (08/21/19) DXA BONE DENSITY AXIAL (08/10/16) ECG MONIT/REPRT UP TO 48 HRS (05/23/15) ECG MONIT/REPRT UP TO 48 HRS (05/23/15) EGD BIOPSY SINGLE/MULTIPLE (08/10/16) ELECTROCARDIOGRAM TRACING (07/03/16) EMERGENCY DEPT VISIT (09/17/16) EMERGENCY DEPT VISIT (08/18/16) EMERGENCY DEPT VISIT (07/03/16) EVALUATION OF WHEEZING (05/23/15) EXTREMITY STUDY (08/29/19) GAIT TRAINING THERAPY (08/21/19) GLUCOSE BLOOD TEST (08/21/19) HT MUSCLE IMAGE SPECT MULT (06/05/19) HYDRATE IV INFUSION ADD-ON (08/18/16) MEASURE BLOOD OXYGEN LEVEL (02/07/18) MR-STAPH DNA AMP PROBE (08/21/20) NJX AA&/STRD FEMORAL NERVE (08/21/19) OFFICE O/P EST SF 10-19 MIN (12/03/14) OT EVAL LOW COMPLEX 30 MIN (08/21/19) PROTHROMBIN TIME (08/18/16) PT EVAL LOW COMPLEX 20 MIN (08/21/19) RBC ANTIBODY SCREEN (02/07/18) ROUTINE VENIPUNCTURE (08/21/19) SCR MAMMO BI INCL CAD (06/18/20) SELF CARE MNGMENT TRAINING (08/21/19) STREP A AG IA (12/03/14) THER/PROPH/DIAG INJ IV PUSH (08/18/16) THERAPEUTIC ACTIVITIES (08/21/19) THERAPEUTIC EXERCISES (08/21/19) THROMBOPLASTIN TIME PARTIAL (08/18/16) TISSUE EXAM BY PATHOLOGIST (08/10/16) TOTAL KNEE ARTHROPLASTY (08/21/19) TX/PRO/DX INJ NEW DRUG ADDON (08/18/16) URINALYSIS AUTO W/SCOPE (08/18/16) US URINE CAPACITY MEASURE (02/07/18) X-RAY EXAM HIP UNI 1 VIEW (02/07/18) X-RAY EXAM OF HAND (09/17/16) X-RAY EXAM OF KNEE 1 OR 2 (08/21/19) X-RAY EXAM OF WRIST (09/17/16) X-RAY XM UPR GI TRC 2CNTRST (08/18/16) Problem List Initiated/Reviewed/Updated: Yes Plan: Patient is an 80-year-old female with a history of chronic atrial fibrillation, prediabetes and a high blood pressure who underwent left knee arthroplasty today by Dr. Thomas. After the procedure, I was asked to comanagement for her atrial fibrillation, hypertension and prediabetes. Assessment and plan: 1. S/p left knee arthropasty today by Dr. Thomas Pain management including pain control and DVT prophylaxis by surgical team 2. Atrial fibrillation with RVR 3. Bradycardia - 40+ Patient home medication including metoprolol succinate 50 mg twice daily. I will decrease to metoprolol succinate due to 50 mg p.o. in the morning and 25 mg in the evening. Metoprolol titrate 2.5 mg IV push, every 5 minutes (normal than 3 times) as needed if heart rate greater than 110. Continue home medication Eliquis 2.5 mg twice daily 4. prediabetes Diabetic diet Insulin sliding scale tier1 5. HTN Metoprolol (refer to #2 and #3) Hydralazine as needed 6. Sleep apnea on CPAP Continue CPAP Pulse ox Oxygen therapy to keep oxygen saturations greater than 92% 7. Hypothyroidism Continue home Synthroid 8. DVT prophylaxis: Eliquis (as per surgical team) 9. CODE STATUS: Full.
[2020-09-16] MEDS ORDERED: Metoprolol Tartrate 5 MG/5 ML SDV IVPUSH PRN (18:01)
[2020-09-16] MEDS: ceFAZolin 2 GM in Premix Bag 1 BAG IV SCH (18:41)
[2020-09-16] MEDS: oxyCODONE 5 MG Tab PO PRN ×2 (18:42→22:34)
[2020-09-16] MEDS ORDERED: Lactated Ringers 1,000 ML IV SCH (19:00)
[2020-09-16] MEDS ORDERED: Famotidine 20 MG Tab PO SCH (21:00)
[2020-09-16] MEDS: Insulin Lispro 100 UNIT/ML 10 ML Vial SUBCUT SCH (21:15)
[2020-09-17] MEDS: ceFAZolin 2 GM in Premix Bag 1 BAG IV SCH ×2 (01:45→08:24)
[2020-09-17] MEDS: oxyCODONE 5 MG Tab PO PRN ×3 (03:01→11:53)
[2020-09-17] MEDS ORDERED: Levothyroxine 125 MCG Tab PO SCH (06:00)
[2020-09-17] MEDS: Insulin Lispro 100 UNIT/ML 10 ML Vial SUBCUT SCH ×2 (06:56→12:06)
--- NOTE | 2020-09-17 07:16 | PCM.CONSN ---
- General Info Date of Service: 09/17/20 Admission Dx/Problem (Free Text): Admission Diagnosis/Problem Admission Diagnosis/Problem Knee joint operation Functional Status: Reports: Pain Controlled, Tolerating Diet, Ambulating, Urinating, Incentive Spirometry. Denies: New Symptoms - Review of Systems General: Reports: No Symptoms. Denies: Fever, Weakness HEENT: Reports: No Symptoms. Denies: Headaches, Sore Throat Pulmonary: Reports: No Symptoms. Denies: Shortness of Breath, Cough, Sputum, Wheezing Cardiovascular: Reports: No Symptoms. Denies: Chest Pain, Palpitations, Dyspnea on Exertion Gastrointestinal: Reports: No Symptoms. Denies: Abdominal Pain, Constipation, Diarrhea, Nausea, Vomiting Genitourinary: Reports: No Symptoms. Denies: Pain Musculoskeletal: Reports: Leg Pain (left ) Skin: Reports: No Symptoms. Denies: Cyanosis Neurological: Reports: Confusion, Difficulty Walking, Weakness, Gait Disturbance. Denies: Dizziness, Headache, Numbness, Tingling, Trouble Speaking Psychiatric: Reports: No Symptoms - Patient Data Vitals - Most Recent: Last Vital Signs Temp 99.0 F 09/17/20 03:05 Pulse 62 09/17/20 03:07 Resp 18 09/17/20 03:05 BP 138/89 09/17/20 03:05 Pulse Ox 94 L 09/17/20 03:07 Weight - Most Recent: 130 lb 11.2 oz I&O - Last 24 Hours: Intake & Output 09/16/20 09/17/20 09/17/20 22:59 06:59 14:59 Intake Total 928 Balance 928 Lab Results Last 24 Hours: Laboratory Results - last 24 hr 09/16/20 09/16/20 09/16/20 Range/Units 08:49 08:49 12:28 WBC (3.98-10.04) K/mm3 RBC (3.98-5.22) M/mm3 Hgb (11.2-15.7) gm/dl Hct (34.1-44.9) % MCV (79.4-94.8) fl MCH (25.6-32.2) pg MCHC (32.2-35.5) g/dl RDW Std Deviation (36.4-46.3) fL Plt Count (182-369) K/mm3 MPV (9.4-12.3) fl Neut % (Auto) (34.0-71.1) % Lymph % (Auto) (19.3-51.7) % [place] % (Auto) (4.7-12.5) % Eos % (Auto) (0.7-5.8) Baso % (Auto) (0.1-1.2) % Neut # (Auto) (1.56-6.13) K/mm3 Lymph # (Auto) (1.18-3.74) K/mm3 [place] # (Auto) (0.24-0.36) K/mm3 Eos # (Auto) (0.04-0.36) K/mm3 Baso # (Auto) (0.01-0.08) K/mm3 PT 11.9 (9.7-12.0) SECONDS INR 1.11 APTT 31.9 H (21.7-31.4) SECONDS Sodium (136-145) mEq/L Potassium (3.5-5.1) mEq/L Chloride (98-107) mEq/L Carbon Dioxide (21-32) mEq/L Anion Gap (5-15) BUN (7-18) mg/dL Creatinine (0.55-1.02) mg/dL Est Cr Clr Drug Dosing mL/min Estimated GFR (MDRD) (>60) mL/min BUN/Creatinine Ratio (14-18) Glucose (83-115) mg/dL POC Glucose 94 102 (83-110) mg/dL Calcium (8.5-10.1) mg/dL Magnesium (1.8-2.4) mg/dl Total Bilirubin (0.2-1.0) mg/dL AST (15-37) U/L ALT (14-59) U/L Alkaline Phosphatase (46-116) U/L Troponin I (0.00-0.056) ng/mL Total Protein (6.4-8.2) g/dl Albumin (3.4-5.0) g/dl Globulin gm/dL Albumin/Globulin Ratio (1-2) 09/16/20 09/16/20 09/16/20 Range/Units 18:20 18:22 18:22 WBC 8.78 (3.98-10.04) K/mm3 RBC 4.56 (3.98-5.22) M/mm3 Hgb 14.1 D (11.2-15.7) gm/dl Hct 43.8 (34.1-44.9) % MCV 96.1 H (79.4-94.8) fl MCH 30.9 (25.6-32.2) pg MCHC 32.2 (32.2-35.5) g/dl RDW Std Deviation 50.0 H (36.4-46.3) fL Plt Count 149 L (182-369) K/mm3 MPV 12.4 H (9.4-12.3) fl Neut % (Auto) 77.2 H (34.0-71.1) % Lymph % (Auto) 13.1 L (19.3-51.7) % [place] % (Auto) 8.8 (4.7-12.5) % Eos % (Auto) 0.7 (0.7-5.8) Baso % (Auto) 0.1 (0.1-1.2) % Neut # (Auto) 6.78 H (1.56-6.13) K/mm3 Lymph # (Auto) 1.15 L (1.18-3.74) K/mm3 [place] # (Auto) 0.77 H (0.24-0.36) K/mm3 Eos # (Auto) 0.06 (0.04-0.36) K/mm3 Baso # (Auto) 0.01 (0.01-0.08) K/mm3 PT (9.7-12.0) SECONDS INR APTT (21.7-31.4) SECONDS Sodium 147 H (136-145) mEq/L Potassium 3.9 (3.5-5.1) mEq/L Chloride 107 (98-107) mEq/L Carbon Dioxide 30 (21-32) mEq/L Anion Gap 13.9 (5-15) BUN 14 (7-18) mg/dL Creatinine 1.0 (0.55-1.02) mg/dL Est Cr Clr Drug Dosing 34.90 mL/min Estimated GFR (MDRD) 53 (>60) mL/min BUN/Creatinine Ratio 14.0 (14-18) Glucose 88 (83-115) mg/dL POC Glucose (83-110) mg/dL Calcium 9.0 (8.5-10.1) mg/dL Magnesium 2.1 (1.8-2.4) mg/dl Total Bilirubin 0.8 (0.2-1.0) mg/dL AST 109 H (15-37) U/L ALT 87 H (14-59) U/L Alkaline Phosphatase 68 (46-116) U/L Troponin I < 0.017 (0.00-0.056) ng/mL Total Protein 6.3 L (6.4-8.2) g/dl Albumin 3.6 (3.4-5.0) g/dl Globulin 2.7 gm/dL Albumin/Globulin Ratio 1.3 (1-2) 09/16/20 09/17/20 09/17/20 Range/Units 20:39 05:02 05:02 WBC 5.59 (3.98-10.04) K/mm3 RBC 4.13 (3.98-5.22) M/mm3 Hgb 12.8 (11.2-15.7) gm/dl Hct 40.2 (34.1-44.9) % MCV 97.3 H (79.4-94.8) fl MCH 31.0 (25.6-32.2) pg MCHC 31.8 L (32.2-35.5) g/dl RDW Std Deviation 51.0 H (36.4-46.3) fL Plt Count 142 L (182-369) K/mm3 MPV 12.5 H (9.4-12.3) fl Neut % (Auto) (34.0-71.1) % Lymph % (Auto) (19.3-51.7) % [place] % (Auto) (4.7-12.5) % Eos % (Auto) (0.7-5.8) Baso % (Auto) (0.1-1.2) % Neut # (Auto) (1.56-6.13) K/mm3 Lymph # (Auto) (1.18-3.74) K/mm3 [place] # (Auto) (0.24-0.36) K/mm3 Eos # (Auto) (0.04-0.36) K/mm3 Baso # (Auto) (0.01-0.08) K/mm3 PT (9.7-12.0) SECONDS INR APTT (21.7-31.4) SECONDS Sodium 140 (136-145) mEq/L Potassium 4.2 (3.5-5.1) mEq/L Chloride 107 (98-107) mEq/L Carbon Dioxide 28 (21-32) mEq/L Anion Gap 9.2 (5-15) BUN 18 (7-18) mg/dL Creatinine 1.3 H (0.55-1.02) mg/dL Est Cr Clr Drug Dosing 26.84 mL/min Estimated GFR (MDRD) 39 (>60) mL/min BUN/Creatinine Ratio 13.8 L (14-18) Glucose 106 (83-115) mg/dL POC Glucose 100 (83-110) mg/dL Calcium 8.6 (8.5-10.1) mg/dL Magnesium (1.8-2.4) mg/dl Total Bilirubin 0.5 (0.2-1.0) mg/dL AST 44 H (15-37) U/L ALT 54 (14-59) U/L Alkaline Phosphatase 64 (46-116) U/L Troponin I (0.00-0.056) ng/mL Total Protein 5.6 L (6.4-8.2) g/dl Albumin 3.2 L (3.4-5.0) g/dl Globulin 2.4 gm/dL Albumin/Globulin Ratio 1.3 (1-2) 03/30/21 Range/Units 06:30 WBC (3.98-10.04) K/mm3 RBC (3.98-5.22) M/mm3 Hgb (11.2-15.7) gm/dl Hct (34.1-44.9) % MCV (79.4-94.8) fl MCH (25.6-32.2) pg MCHC (32.2-35.5) g/dl RDW Std Deviation (36.4-46.3) fL Plt Count (182-369) K/mm3 MPV (9.4-12.3) fl Neut % (Auto) (34.0-71.1) % Lymph % (Auto) (19.3-51.7) % [place] % (Auto) (4.7-12.5) % Eos % (Auto) (0.7-5.8) Baso % (Auto) (0.1-1.2) % Neut # (Auto) (1.56-6.13) K/mm3 Lymph # (Auto) (1.18-3.74) K/mm3 [place] # (Auto) (0.24-0.36) K/mm3 Eos # (Auto) (0.04-0.36) K/mm3 Baso # (Auto) (0.01-0.08) K/mm3 PT (9.7-12.0) SECONDS INR APTT (21.7-31.4) SECONDS Sodium (136-145) mEq/L Potassium (3.5-5.1) mEq/L Chloride (98-107) mEq/L Carbon Dioxide (21-32) mEq/L Anion Gap (5-15) BUN (7-18) mg/dL Creatinine (0.55-1.02) mg/dL Est Cr Clr Drug Dosing mL/min Estimated GFR (MDRD) (>60) mL/min BUN/Creatinine Ratio (14-18) Glucose (83-115) mg/dL POC Glucose 87 (83-110) mg/dL Calcium (8.5-10.1) mg/dL Magnesium (1.8-2.4) mg/dl Total Bilirubin (0.2-1.0) mg/dL AST (15-37) U/L ALT (14-59) U/L Alkaline Phosphatase (46-116) U/L Troponin I (0.00-0.056) ng/mL Total Protein (6.4-8.2) g/dl Albumin (3.4-5.0) g/dl Globulin gm/dL Albumin/Globulin Ratio (1-2) Med Orders - Current: Current Medications Apixaban (Apixaban 2.5 Mg Tab) 2.5 mg PO BID [facility] Aspirin (Aspirin 81 Mg Tab.Ec) 81 mg PO BEDTIME [facility] Bisacodyl (Bisacodyl 5 Mg Tab) 5 mg PO DAILY PRN PRN Reason: Constipation Bupropion HCl (Bupropion 150 Mg Tab.Er) 300 mg PO DAILY [facility] Calcium Carbonate (Calcium Carbonate/Vitamin D3 600 Mg-200 Units Tab) 1 tab PO DAILY [facility] Cholecalciferol (Cholecalciferol (Vitamin D3) 5,000 Unit Cap) 5,000 unit PO DAILY [facility] Cyclobenzaprine HCl (Cyclobenzaprine 10 Mg Tab) 5 mg PO BID PRN PRN Reason: Spasms Last Admin: 09/17/20 03:00 Dose: 5 mg Documented by: Diclofenac Sodium (Diclofenac Sodium 1% Gel 100 Gm Tube) gm TOP ASDIRECTED PRN PRN Reason: Pain Docusate Sodium (Docusate Sodium 100 Mg Cap) 100 mg PO BID PRN PRN Reason: Constipation Famotidine (Famotidine 20 Mg Tab) 20 mg PO Q12H [facility] Last Admin: 09/16/20 22:34 Dose: 20 mg Documented by: Hydralazine HCl (Hydralazine 20 Mg/Ml Sdv) 10 mg IVPUSH Q4H PRN PRN Reason: Hypertension Cefazolin Sodium/Dextrose 2 gm (/ Premix) 50 mls @ 100 mls/hr IV Q8H [facility] Stop: 09/17/20 09:29 Last Admin: 09/17/20 01:45 Dose: 100 mls/hr Documented by: Lactated Ringer's (Ringers, Lactated) 1,000 mls @ 50 mls/hr IV ASDIRECTED [facility] Last Admin: 09/16/20 19:42 Dose: 50 mls/hr Documented by: Insulin Human Lispro (Insulin Lispro 100 Unit/Ml) 0 unit SUBCUT QIDACANDBED [facility]; Protocol Last Admin: 09/17/20 06:56 Dose: Not Given Documented by: Levothyroxine Sodium (Levothyroxine 125 Mcg Tab) 125 mcg PO ACBREAKFAST [facility] Last Admin: 09/17/20 06:47 Dose: 125 mcg Documented by: Loratadine (Loratadine 10 Mg Tab) 10 mg PO DAILY PRN PRN Reason: Allergies Magnesium Hydroxide (Magnesium Hydroxide 400 Mg/5 Ml Susp 30 Ml Cup) 30 ml PO BID PRN PRN Reason: Constipation Metoprolol Succinate (Metoprolol Succinate 50 Mg Tab.Er) 50 mg PO DAILY [facility] Metoprolol Tartrate (Metoprolol Tartrate 5 Mg/5 Ml Sdv) 2.5 mg IVPUSH ASDIRECTED PRN PRN Reason: Tachycardia Morphine Sulfate (Morphine 2 Mg/Ml Syringe) 1 mg IVPUSH Q2H PRN PRN Reason: Breakthrough pain Naloxone HCl (Naloxone 0.4 Mg/Ml Sdv) 0.1 mg IVPUSH Q5M PRN PRN Reason: Oversedation Ondansetron HCl (Ondansetron 4 Mg/2 Ml Sdv) 4 mg IVPUSH Q6H PRN PRN Reason: Nausea/Vomiting Oxycodone HCl (Oxycodone 5 Mg Tab) 5 - 10 mg PO Q4H PRN PRN Reason: Pain Last Admin: 09/17/20 06:46 Dose: 5 mg Documented by: Ketotifen 5 Ml Drops Patient's Own Med 0 each EYEBOTH Q4H PRN PRN Reason: Allergies Senna (Sennosides 8.6 Mg Tab) 8.6 mg PO BID PRN PRN Reason: Constipation Zinc Sulfate (Zinc Sulfate 220 Mg Cap) 220 mg PO DAILY [facility] Discontinued Medications Acetaminophen (Acetaminophen 325 Mg Tab) 975 mg PO ONETIME [facility] Stop: 09/16/20 13:00 Last Admin: 09/16/20 08:44 Dose: 975 mg Documented by: Morphine Sulfate 8 mg/Epinephrine HCl 0.3 mg/Cefuroxime Sodium 750 mg/Ketorolac Tromethamine 30 mg/Sodium Chloride 7.9 ml 0 mg .XX ASDIRECTED PRN PRN Reason: Pain Stop: 09/16/20 18:00 Last Admin: 09/16/20 11:25 Dose: 788.3 mg Documented by: Diphenhydramine HCl (Diphenhydramine 50 Mg/Ml Sdv) 12.5 mg IVPUSH Q6H PRN PRN Reason: pruritis Stop: 09/16/20 18:00 Ephedrine Sulfate (Ephedrine 50 Mg/Ml Sdv) Confirm Administered Dose 50 mg .ROUTE .STK-MED ONE Stop: 09/16/20 09:37 Ephedrine Sulfate (Ephedrine 50 Mg/Ml Sdv) 5 mg IVPUSH ASDIRECTED PRN PRN Reason: Hypotension Stop: 09/16/20 18:00 Epinephrine HCl (Epinephrine 1 Mg/Ml Sdv) Confirm Administered Dose 1 mg .ROUTE .STK-MED ONE Stop: 09/16/20 06:51 Fentanyl (Fentanyl 100 Mcg/2 Ml Sdv) Confirm Administered Dose 100 mcg .ROUTE . STK-MED ONE Stop: 09/16/20 07:24 Fentanyl (Fentanyl 100 Mcg/2 Ml Sdv) 50 mcg IVPUSH Q20M PRN PRN Reason: Pain Stop: 09/16/20 18:00 Hydralazine HCl (Hydralazine 20 Mg/Ml Sdv) 10 mg IVPUSH Q2H PRN PRN Reason: Hypertension Hydromorphone HCl (Hydromorphone 0.5 Mg/0.5 Ml Syringe) 0.5 mg IVPUSH Q10M PRN PRN Reason: Pain (severe 7-10) Stop: 09/16/20 18:00 Lactated Ringer's (Ringers, Lactated) 1,000 mls @ 125 mls/hr IV ASDIRECTED [facility] Stop: 09/16/20 23:00 Last Admin: 09/16/20 08:49 Dose: 125 mls/hr Documented by: Lidocaine HCl (Xylocaine-Mpf 1%) Confirm Administered Dose 4 mls @ as directed .ROUTE .STK-MED ONE Stop: 09/16/20 07:23 Lactated Ringer's (Ringers, Lactated) Confirm Administered Dose 2,000 mls @ as directed .ROUTE .STK-MED ONE Stop: 09/16/20 07:23 Ketamine HCl (Ketamine 500 Mg/10 Ml Mdv) Confirm Administered Dose 500 mg .ROUTE .STK-MED ONE Stop: 09/16/20 07:24 Ketorolac Tromethamine (Ketorolac 30 Mg/Ml Sdv) Confirm Administered Dose 30 mg .ROUTE .STK-MED ONE Stop: 09/16/20 07:23 Lidocaine/Sodium Bicarbonate (Lidocaine 1%/Sod Bicarbonate In Ns 8.4% 1 Ml Syringe) 0.25 ml IDERM ONETIME PRN PRN Reason: Prior to IV Start Stop: 09/16/20 18:00 Metoprolol Succinate (Metoprolol Succinate 50 Mg Tab.Er) 50 mg PO BID [facility] Midazolam HCl (Midazolam 1 Mg/Ml 2 Ml Sdv) Confirm Administered Dose 2 mg .ROUTE .STK-MED ONE Stop: 09/16/20 07:24 Miscellaneous Medication (Phenylephrine Hcl In 0.9% Nacl 1 Mg/10 Ml Syringe) 0.1 mg IVPUSH Q10M PRN PRN Reason: Hypotension Stop: 09/16/20 18:00 Ondansetron HCl (Ondansetron 4 Mg/2 Ml Sdv) Confirm Administered Dose 4 mg .ROUTE .STK-MED ONE Stop: 09/16/20 07:23 Ondansetron HCl (Ondansetron 4 Mg/2 Ml Sdv) 4 mg IVPUSH ONETIME PRN PRN Reason: Nausea/Vomiting Stop: 09/16/20 18:00 Oxycodone HCl (Oxycodone Er 10 Mg Tab.Er) 10 mg PO ONETIME [facility] Stop: 09/16/20 13:00 Last Admin: 09/16/20 08:44 Dose: 10 mg Documented by: Oxycodone HCl (Oxycodone 5 Mg Tab) 5 - 10 mg PO Q6H PRN PRN Reason: Pain/Fever Pregabalin (Pregabalin 25 Mg Cap) 50 mg PO ONETIME [facility] Stop: 09/16/20 13:00 Last Admin: 09/16/20 08:45 Dose: 50 mg Documented by: Propofol (Propofol 200 Mg/20 Ml Sdv) Confirm Administered Dose 400 mg .ROUTE .STK-MED ONE Stop: 09/16/20 07:24 Ropivacaine (Ropivacaine 0.5% 5 Mg/Ml 30 Ml Sdv) Confirm Administered Dose 30 ml .ROUTE .STK-MED ONE Stop: 09/16/20 06:51 Scopolamine (Scopolamine 1.5 Mg Transdermal Patch) 1.5 mg TRDERM ONETIME ONE Stop: 09/16/20 09:31 Last Admin: 09/16/20 09:23 Dose: 1.5 mg Documented by: Sodium Chloride (Sodium Chloride 0.9% 10 Ml Syringe) 10 ml FLUSH ASDIRECTED PRN PRN Reason: Keep Vein Open Stop: 09/16/20 18:00 Tranexamic Acid (Tranexamic Acid 1,000 Mg/10 Ml Amp) Confirm Administered Dose 1,000 mg .ROUTE .STK-MED ONE Stop: 09/16/20 09:45 Last Admin: 09/16/20 11:31 Dose: 1,000 mg Documented by: Vancomycin HCl (Vancomycin 1 Gm Sdv) Confirm Administered Dose 1 gm .ROUTE .STK- MED ONE Stop: 09/16/20 09:45 Vancomycin HCl (Vancomycin 1 Gm Sdv) Confirm Administered Dose 1 gm .ROUTE .STK- MED ONE Stop: 09/16/20 10:24 Last Admin: 09/16/20 11:31 Dose: 1 gm Documented by: - Exam Quality Assessment: DVT Prophylaxis. No: Supplemental Oxygen, Urine Catheter General: Alert, Oriented (mostly ), Cooperative, No Acute Distress HEENT: Pupils Equal, Pupils Reactive, Mucous Membr. Moist/[place] Neck: Supple, Trachea Midline Lungs: Clear to Auscultation, Normal Respiratory Effort Cardiovascular: Regular Rate, Regular Rhythm GI/Abdominal Exam: Normal Bowel Sounds, Soft, Non-Tender, No Distention (Female) Exam: Deferred Back Exam: Normal Inspection, Full Range of Motion Extremities: Normal Capillary Refill, Leg Pain (left ), Limited Range of Motion, Other (Bandage in place on left leg. Cooling pack in place ) Peripheral Pulses: 2+: Radial (L), Radial (R), Dorsalis Pedis (L), Dorsalis Pedis (R) Skin: Warm, Dry, Intact Wound/Incisions: Dressing Dry and Intact Neurological: No New Focal Deficit Psy/Mental Status: Alert, Normal Affect, Normal Mood Sepsis Event Note - Evaluation Sepsis Screening Result: No Definite Risk - Focused Exam Vital Signs: Vital Signs Temp Pulse Resp BP Pulse Ox 09/17/20 03:07 62 94 L 09/17/20 03:05 99.0 F 18 138/89 09/16/20 20:59 97.5 F 96 16 120/61 98 Consult PN Assessment/Plan POD#: 1 Procedures: Procedures APPLY FOREARM SPLINT (09/17/16) ASSAY OF LIPASE (07/03/16) ASSAY OF TROPONIN QUANT (07/03/16) BLOOD TYPING SEROLOGIC ABO (02/07/18) BLOOD TYPING SEROLOGIC RH(D) (02/07/18) BREAST TOMOSYNTHESIS BI (06/18/20) CARDIOVASCULAR STRESS TEST (06/05/19) CHEST X-RAY 2VW FRONTAL&LATL (07/03/16) COMP SCREEN MAMMOGRAM ADD-ON (02/19/16) COMPLETE CBC AUTOMATED (08/21/19) COMPLETE CBC W/AUTO DIFF WBC (08/18/16) COMPREHEN METABOLIC PANEL (08/21/19) CT ABD & PELVIS W/O CONTRAST (08/18/16) CT LOWER EXTREMITY W/O DYE (08/21/20) CULTURE SCREEN ONLY (12/03/14) DRAIN/INJ JOINT/BURSA W/O US (08/21/19) DXA BONE DENSITY AXIAL (08/10/16) ECG MONIT/REPRT UP TO 48 HRS (05/23/15) ECG MONIT/REPRT UP TO 48 HRS (05/23/15) EGD BIOPSY SINGLE/MULTIPLE (08/10/16) ELECTROCARDIOGRAM TRACING (07/03/16) EMERGENCY DEPT VISIT (09/17/16) EMERGENCY DEPT VISIT (08/18/16) EMERGENCY DEPT VISIT (07/03/16) EVALUATION OF WHEEZING (05/23/15) EXTREMITY STUDY (08/29/19) GAIT TRAINING THERAPY (08/21/19) GLUCOSE BLOOD TEST (08/21/19) HT MUSCLE IMAGE SPECT MULT (06/05/19) HYDRATE IV INFUSION ADD-ON (08/18/16) MEASURE BLOOD OXYGEN LEVEL (02/07/18) MR-STAPH DNA AMP PROBE (08/21/20) NJX AA&/STRD FEMORAL NERVE (08/21/19) OFFICE O/P EST SF 10-19 MIN (12/03/14) OT EVAL LOW COMPLEX 30 MIN (08/21/19) PROTHROMBIN TIME (08/18/16) PT EVAL LOW COMPLEX 20 MIN (08/21/19) RBC ANTIBODY SCREEN (02/07/18) ROUTINE VENIPUNCTURE (08/21/19) SCR MAMMO BI INCL CAD (06/18/20) SELF CARE MNGMENT TRAINING (08/21/19) STREP A AG IA (12/03/14) THER/PROPH/DIAG INJ IV PUSH (08/18/16) THERAPEUTIC ACTIVITIES (08/21/19) THERAPEUTIC EXERCISES (08/21/19) THROMBOPLASTIN TIME PARTIAL (08/18/16) TISSUE EXAM BY PATHOLOGIST (08/10/16) TOTAL KNEE ARTHROPLASTY (08/21/19) TX/PRO/DX INJ NEW DRUG ADDON (08/18/16) URINALYSIS AUTO W/SCOPE (08/18/16) US URINE CAPACITY MEASURE (02/07/18) X-RAY EXAM HIP UNI 1 VIEW (02/07/18) X-RAY EXAM OF HAND (09/17/16) X-RAY EXAM OF KNEE 1 OR 2 (08/21/19) X-RAY EXAM OF WRIST (09/17/16) X-RAY XM UPR GI TRC 2CNTRST (08/18/16) (1) A-fib SNOMED Code(s): 27861185 Code(s): I48.91 - UNSPECIFIED ATRIAL FIBRILLATION Priority: Medium Current Visit: No Qualifiers: Atrial fibrillation type: unspecified Qualified Code(s): I48.91 - Unspecified atrial fibrillation (2) CHF (congestive heart failure) SNOMED Code(s): 88169682 Code(s): I50.9 - HEART FAILURE, UNSPECIFIED Priority: Medium Current Visit: No Qualifiers: Heart failure type: unspecified Heart failure chronicity: unspecified Qualified Code(s): I50.9 - Heart failure, unspecified (3) Cerebral ischemia SNOMED Code(s): 231079929 Code(s): I67.82 - CEREBRAL ISCHEMIA Priority: Low Current Visit: No (4) Gastroesophageal reflux disease SNOMED Code(s): 970237349 Code(s): K21.9 - GASTRO-ESOPHAGEAL REFLUX DISEASE WITHOUT ESOPHAGITIS Priority: Low Current Visit: No Qualifiers: Esophagitis presence: esophagitis presence not specified Qualified Code(s): K21.9 - Gastro-esophageal reflux disease without esophagitis (5) HLD (hyperlipidemia) SNOMED Code(s): 57589758 Code(s): E78.5 - HYPERLIPIDEMIA, UNSPECIFIED Priority: Low Current Visit: No Qualifiers: Hyperlipidemia type: unspecified Qualified Code(s): E78.5 - Hyperlipidemia, unspecified (6) HTN (hypertension) SNOMED Code(s): 49114882 Code(s): I10 - ESSENTIAL (PRIMARY) HYPERTENSION Priority: Medium Current Visit: No Qualifiers: Hypertension type: unspecified Qualified Code(s): I10 - Essential (primary) hypertension (7) History of TIA (transient ischemic attack) SNOMED Code(s): 612188884 Code(s): Z86.73 - PRSNL HX OF TIA (TIA), AND CEREB INFRC W/O RESID DEFICITS Priority: Low Current Visit: No (8) Hypothyroidism SNOMED Code(s): 66041714 Code(s): E03.9 - HYPOTHYROIDISM, UNSPECIFIED Priority: Low Current Visit: No Qualifiers: Hypothyroidism type: unspecified Qualified Code(s): E03.9 - Hypothyroidism, unspecified (9) MESHA on CPAP SNOMED Code(s): 94107267 Code(s): G47.33 - OBSTRUCTIVE SLEEP APNEA (ADULT) (PEDIATRIC); Z99.89 - DEPENDENCE ON OTHER ENABLING MACHINES AND DEVICES Priority: Medium Current Visit: No (10) Osteoarthritis SNOMED Code(s): 728804822 Code(s): M19.90 - UNSPECIFIED OSTEOARTHRITIS, UNSPECIFIED SITE Priority: High Current Visit: No Qualifiers: Osteoarthritis location: hip Osteoarthritis type: primary Laterality: left Qualified Code(s): M16.12 - Unilateral primary osteoarthritis, left hip (11) Osteoporosis SNOMED Code(s): 43487545 Code(s): M81.0 - AGE-RELATED OSTEOPOROSIS W/O CURRENT PATHOLOGICAL FRACTURE Priority: Medium Current Visit: No Qualifiers: Osteoporosis type: unspecified Presence of current pathological fracture: unspecified Qualified Code(s): M81.0 - Age-related osteoporosis without current pathological fracture (12) S/P thyroidectomy SNOMED Code(s): 449176371, 05992282, 404059599 Code(s): Z98.890 - OTHER SPECIFIED POSTPROCEDURAL STATES Priority: Low Current Visit: No (13) S/P total knee arthroplasty SNOMED Code(s): 2000379117815, 712634371, [id number] Code(s): Z96.659 - PRESENCE OF UNSPECIFIED ARTIFICIAL KNEE JOINT Priority: High Current Visit: No Qualifiers: Laterality: left Qualified Code(s): Z96.652 - Presence of left artificial knee joint (14) Type II diabetes mellitus SNOMED Code(s): 79100013 Code(s): E11.9 - TYPE 2 DIABETES MELLITUS WITHOUT COMPLICATIONS Priority: Low Current Visit: No Qualifiers: Diabetes mellitus [employer] insulin use: without snf use Diabetes mellitus complication status: without complication Qualified Code(s): E11.9 - Type 2 diabetes mellitus without complications (15) Urinary incontinence SNOMED Code(s): 506084110 Code(s): R32 - UNSPECIFIED URINARY INCONTINENCE Priority: Low Current Visit: No Qualifiers: Urinary Incontinence type: unspecified incontinence Qualified Code(s): R32 - Unspecified urinary incontinence (16) Valvular heart disease SNOMED Code(s): 373360 Code(s): I38 - ENDOCARDITIS, VALVE UNSPECIFIED Priority: Medium Current Visit: No Problem List Initiated/Reviewed/Updated: Yes Plan: I/P: Acute: S/P right total knee arthroplasty - post-operative day 1 -DVT prophylaxis and pain management per primary care team -PT/OT -IS/RT -Monitor oxygen saturation -Titrate oxygen as needed -Home medications reviewed -Vital signs stable -Monitor labs -Pre-operative Hgb was 14.9; Now 12.8 -Pre-operative GFR was 44; Now 39 -Pre-operative creatinine was 1.18; Now 1.3 -Pre-operative BUN was 23; Now 18 -Pre-operative A1C was 5.7% Osteoarthritis of bilateral knee -Pain management per primary care team S/P left knee cortisone injection -Management by primary team Post-operative bradycardia -HR as low as 26 post-operatively -Pre-operative 12-lead EKG showed A-fib at 71 BPM with borderline diffuse repolarization abnormalities -Post-operative twelve-lead EKG showed A. fib at 65 bpm with borderline diffuse repolarization abnormalities and PVCs. -50 mg twice daily metoprolol succinate dosing decreased to once daily with good results. -Will need PCP follow-up after discharge -Monitor BID HR and record in journal after discharge. Chronic: HTN Pre-Diabetes A-fib HLD MESHA Metabolic syndrome GERD Depression Osteoporosis OA Incontinence Heart valve dysfunction 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 Her PCP is Dr. Carlson From a hospitalist standpoint Catherine is doing well. She has been up ambulating and working with therapies. Her labs and vital signs remain stable. She has urinated and is off of oxygen. She has been utilizing her IS. Her pain is controlled. Her heart rate postoperatively got as low as 26 bpm but has generally been in the 50s and 60s. Will discharge her on 50 mg daily metoprolol succinate which is a decrease from 50 mg twice daily metoprolol. Recommend follow-up with primary care provider within 5 to 7 days of discharge. Recommend patient check pulse twice daily and recorded in a journal, bring this with to all medical appointments. She is cleared for discharge pending primary team and PT/OT agreement. Thank you for allowing us to participate in the care of this patient!!
--- NOTE | 2020-09-17 07:56 | PCM.SURGPN ---
- General Info Date of Service: 09/17/20 POD#: 1 Functional Status: Reports: Pain Controlled, Tolerating Diet, Ambulating, Urinating, Incentive Spirometry, Other (Pt states she has been up to the bathroom with nursing.) - Patient Data Vitals - Most Recent: Last Vital Signs Temp 99.0 F 09/17/20 03:05 Pulse 62 09/17/20 03:07 Resp 18 09/17/20 03:05 BP 138/89 09/17/20 03:05 Pulse Ox 94 L 09/17/20 03:07 Weight - Most Recent: 130 lb 11.2 oz I&O - Last 24 Hours: Intake & Output 09/16/20 09/17/20 09/17/20 22:59 06:59 14:59 Intake Total 928 Balance 928 Lab Results Last 24 Hrs: Laboratory Results - last 24 hr 09/16/20 09/16/20 09/16/20 Range/Units 08:49 08:49 12:28 WBC (3.98-10.04) K/mm3 RBC (3.98-5.22) M/mm3 Hgb (11.2-15.7) gm/dl Hct (34.1-44.9) % MCV (79.4-94.8) fl MCH (25.6-32.2) pg MCHC (32.2-35.5) g/dl RDW Std Deviation (36.4-46.3) fL Plt Count (182-369) K/mm3 MPV (9.4-12.3) fl Neut % (Auto) (34.0-71.1) % Lymph % (Auto) (19.3-51.7) % [place] % (Auto) (4.7-12.5) % Eos % (Auto) (0.7-5.8) Baso % (Auto) (0.1-1.2) % Neut # (Auto) (1.56-6.13) K/mm3 Lymph # (Auto) (1.18-3.74) K/mm3 [place] # (Auto) (0.24-0.36) K/mm3 Eos # (Auto) (0.04-0.36) K/mm3 Baso # (Auto) (0.01-0.08) K/mm3 PT 11.9 (9.7-12.0) SECONDS INR 1.11 APTT 31.9 H (21.7-31.4) SECONDS Sodium (136-145) mEq/L Potassium (3.5-5.1) mEq/L Chloride (98-107) mEq/L Carbon Dioxide (21-32) mEq/L Anion Gap (5-15) BUN (7-18) mg/dL Creatinine (0.55-1.02) mg/dL Est Cr Clr Drug Dosing mL/min Estimated GFR (MDRD) (>60) mL/min BUN/Creatinine Ratio (14-18) Glucose (83-115) mg/dL POC Glucose 94 102 (83-110) mg/dL Calcium (8.5-10.1) mg/dL Magnesium (1.8-2.4) mg/dl Total Bilirubin (0.2-1.0) mg/dL AST (15-37) U/L ALT (14-59) U/L Alkaline Phosphatase (46-116) U/L Troponin I (0.00-0.056) ng/mL Total Protein (6.4-8.2) g/dl Albumin (3.4-5.0) g/dl Globulin gm/dL Albumin/Globulin Ratio (1-2) 09/16/20 09/16/20 09/16/20 Range/Units 18:20 18:22 18:22 WBC 8.78 (3.98-10.04) K/mm3 RBC 4.56 (3.98-5.22) M/mm3 Hgb 14.1 D (11.2-15.7) gm/dl Hct 43.8 (34.1-44.9) % MCV 96.1 H (79.4-94.8) fl MCH 30.9 (25.6-32.2) pg MCHC 32.2 (32.2-35.5) g/dl RDW Std Deviation 50.0 H (36.4-46.3) fL Plt Count 149 L (182-369) K/mm3 MPV 12.4 H (9.4-12.3) fl Neut % (Auto) 77.2 H (34.0-71.1) % Lymph % (Auto) 13.1 L (19.3-51.7) % [place] % (Auto) 8.8 (4.7-12.5) % Eos % (Auto) 0.7 (0.7-5.8) Baso % (Auto) 0.1 (0.1-1.2) % Neut # (Auto) 6.78 H (1.56-6.13) K/mm3 Lymph # (Auto) 1.15 L (1.18-3.74) K/mm3 [place] # (Auto) 0.77 H (0.24-0.36) K/mm3 Eos # (Auto) 0.06 (0.04-0.36) K/mm3 Baso # (Auto) 0.01 (0.01-0.08) K/mm3 PT (9.7-12.0) SECONDS INR APTT (21.7-31.4) SECONDS Sodium 147 H (136-145) mEq/L Potassium 3.9 (3.5-5.1) mEq/L Chloride 107 (98-107) mEq/L Carbon Dioxide 30 (21-32) mEq/L Anion Gap 13.9 (5-15) BUN 14 (7-18) mg/dL Creatinine 1.0 (0.55-1.02) mg/dL Est Cr Clr Drug Dosing 34.90 mL/min Estimated GFR (MDRD) 53 (>60) mL/min BUN/Creatinine Ratio 14.0 (14-18) Glucose 88 (83-115) mg/dL POC Glucose (83-110) mg/dL Calcium 9.0 (8.5-10.1) mg/dL Magnesium 2.1 (1.8-2.4) mg/dl Total Bilirubin 0.8 (0.2-1.0) mg/dL AST 109 H (15-37) U/L ALT 87 H (14-59) U/L Alkaline Phosphatase 68 (46-116) U/L Troponin I < 0.017 (0.00-0.056) ng/mL Total Protein 6.3 L (6.4-8.2) g/dl Albumin 3.6 (3.4-5.0) g/dl Globulin 2.7 gm/dL Albumin/Globulin Ratio 1.3 (1-2) 09/16/20 09/17/20 09/17/20 Range/Units 20:39 05:02 05:02 WBC 5.59 (3.98-10.04) K/mm3 RBC 4.13 (3.98-5.22) M/mm3 Hgb 12.8 (11.2-15.7) gm/dl Hct 40.2 (34.1-44.9) % MCV 97.3 H (79.4-94.8) fl MCH 31.0 (25.6-32.2) pg MCHC 31.8 L (32.2-35.5) g/dl RDW Std Deviation 51.0 H (36.4-46.3) fL Plt Count 142 L (182-369) K/mm3 MPV 12.5 H (9.4-12.3) fl Neut % (Auto) (34.0-71.1) % Lymph % (Auto) (19.3-51.7) % [place] % (Auto) (4.7-12.5) % Eos % (Auto) (0.7-5.8) Baso % (Auto) (0.1-1.2) % Neut # (Auto) (1.56-6.13) K/mm3 Lymph # (Auto) (1.18-3.74) K/mm3 [place] # (Auto) (0.24-0.36) K/mm3 Eos # (Auto) (0.04-0.36) K/mm3 Baso # (Auto) (0.01-0.08) K/mm3 PT (9.7-12.0) SECONDS INR APTT (21.7-31.4) SECONDS Sodium 140 (136-145) mEq/L Potassium 4.2 (3.5-5.1) mEq/L Chloride 107 (98-107) mEq/L Carbon Dioxide 28 (21-32) mEq/L Anion Gap 9.2 (5-15) BUN 18 (7-18) mg/dL Creatinine 1.3 H (0.55-1.02) mg/dL Est Cr Clr Drug Dosing 26.84 mL/min Estimated GFR (MDRD) 39 (>60) mL/min BUN/Creatinine Ratio 13.8 L (14-18) Glucose 106 (83-115) mg/dL POC Glucose 100 (83-110) mg/dL Calcium 8.6 (8.5-10.1) mg/dL Magnesium (1.8-2.4) mg/dl Total Bilirubin 0.5 (0.2-1.0) mg/dL AST 44 H (15-37) U/L ALT 54 (14-59) U/L Alkaline Phosphatase 64 (46-116) U/L Troponin I (0.00-0.056) ng/mL Total Protein 5.6 L (6.4-8.2) g/dl Albumin 3.2 L (3.4-5.0) g/dl Globulin 2.4 gm/dL Albumin/Globulin Ratio 1.3 (1-2) 09/17/20 Range/Units 06:30 WBC (3.98-10.04) K/mm3 RBC (3.98-5.22) M/mm3 Hgb (11.2-15.7) gm/dl Hct (34.1-44.9) % MCV (79.4-94.8) fl MCH (25.6-32.2) pg MCHC (32.2-35.5) g/dl RDW Std Deviation (36.4-46.3) fL Plt Count (182-369) K/mm3 MPV (9.4-12.3) fl Neut % (Auto) (34.0-71.1) % Lymph % (Auto) (19.3-51.7) % [place] % (Auto) (4.7-12.5) % Eos % (Auto) (0.7-5.8) Baso % (Auto) (0.1-1.2) % Neut # (Auto) (1.56-6.13) K/mm3 Lymph # (Auto) (1.18-3.74) K/mm3 [place] # (Auto) (0.24-0.36) K/mm3 Eos # (Auto) (0.04-0.36) K/mm3 Baso # (Auto) (0.01-0.08) K/mm3 PT (9.7-12.0) SECONDS INR APTT (21.7-31.4) SECONDS Sodium (136-145) mEq/L Potassium (3.5-5.1) mEq/L Chloride (98-107) mEq/L Carbon Dioxide (21-32) mEq/L Anion Gap (5-15) BUN (7-18) mg/dL Creatinine (0.55-1.02) mg/dL Est Cr Clr Drug Dosing mL/min Estimated GFR (MDRD) (>60) mL/min BUN/Creatinine Ratio (14-18) Glucose (83-115) mg/dL POC Glucose 87 (83-110) mg/dL Calcium (8.5-10.1) mg/dL Magnesium (1.8-2.4) mg/dl Total Bilirubin (0.2-1.0) mg/dL AST (15-37) U/L ALT (14-59) U/L Alkaline Phosphatase (46-116) U/L Troponin I (0.00-0.056) ng/mL Total Protein (6.4-8.2) g/dl Albumin (3.4-5.0) g/dl Globulin gm/dL Albumin/Globulin Ratio (1-2) Med Orders - Current: Current Medications Apixaban (Apixaban 2.5 Mg Tab) 2.5 mg PO BID [facility] Aspirin (Aspirin 81 Mg Tab.Ec) 81 mg PO BEDTIME [facility] Bisacodyl (Bisacodyl 5 Mg Tab) 5 mg PO DAILY PRN PRN Reason: Constipation Bupropion HCl (Bupropion 150 Mg Tab.Er) 300 mg PO DAILY [facility] Calcium Carbonate (Calcium Carbonate/Vitamin D3 600 Mg-200 Units Tab) 1 tab PO DAILY [facility] Cholecalciferol (Cholecalciferol (Vitamin D3) 5,000 Unit Cap) 5,000 unit PO DAILY [facility] Cyclobenzaprine HCl (Cyclobenzaprine 10 Mg Tab) 5 mg PO BID PRN PRN Reason: Spasms Last Admin: 09/17/20 03:00 Dose: 5 mg Documented by: Diclofenac Sodium (Diclofenac Sodium 1% Gel 100 Gm Tube) gm TOP ASDIRECTED PRN PRN Reason: Pain Docusate Sodium (Docusate Sodium 100 Mg Cap) 100 mg PO BID PRN PRN Reason: Constipation Famotidine (Famotidine 20 Mg Tab) 20 mg PO Q12H [facility] Last Admin: 09/16/20 22:34 Dose: 20 mg Documented by: Hydralazine HCl (Hydralazine 20 Mg/Ml Sdv) 10 mg IVPUSH Q4H PRN PRN Reason: Hypertension Cefazolin Sodium/Dextrose 2 gm (/ Premix) 50 mls @ 100 mls/hr IV Q8H [facility] Stop: 09/17/20 09:29 Last Admin: 09/17/20 01:45 Dose: 100 mls/hr Documented by: Lactated Ringer's (Ringers, Lactated) 1,000 mls @ 50 mls/hr IV ASDIRECTED [facility] Last Admin: 09/16/20 19:42 Dose: 50 mls/hr Documented by: Insulin Human Lispro (Insulin Lispro 100 Unit/Ml) 0 unit SUBCUT QIDACANDBED [facility]; Protocol Last Admin: 09/17/20 06:56 Dose: Not Given Documented by: Levothyroxine Sodium (Levothyroxine 125 Mcg Tab) 125 mcg PO ACBREAKFAST [facility] Last Admin: 09/17/20 06:47 Dose: 125 mcg Documented by: Loratadine (Loratadine 10 Mg Tab) 10 mg PO DAILY PRN PRN Reason: Allergies Magnesium Hydroxide (Magnesium Hydroxide 400 Mg/5 Ml Susp 30 Ml Cup) 30 ml PO BID PRN PRN Reason: Constipation Metoprolol Succinate (Metoprolol Succinate 50 Mg Tab.Er) 50 mg PO DAILY [facility] Metoprolol Tartrate (Metoprolol Tartrate 5 Mg/5 Ml Sdv) 2.5 mg IVPUSH ASDIRECTED PRN PRN Reason: Tachycardia Morphine Sulfate (Morphine 2 Mg/Ml Syringe) 1 mg IVPUSH Q2H PRN PRN Reason: Breakthrough pain Naloxone HCl (Naloxone 0.4 Mg/Ml Sdv) 0.1 mg IVPUSH Q5M PRN PRN Reason: Oversedation Ondansetron HCl (Ondansetron 4 Mg/2 Ml Sdv) 4 mg IVPUSH Q6H PRN PRN Reason: Nausea/Vomiting Oxycodone HCl (Oxycodone 5 Mg Tab) 5 - 10 mg PO Q4H PRN PRN Reason: Pain Last Admin: 09/17/20 06:46 Dose: 5 mg Documented by: Ketotifen 5 Ml Drops Patient's Own Med 0 each EYEBOTH Q4H PRN PRN Reason: Allergies Senna (Sennosides 8.6 Mg Tab) 8.6 mg PO BID PRN PRN Reason: Constipation Zinc Sulfate (Zinc Sulfate 220 Mg Cap) 220 mg PO DAILY [facility] Discontinued Medications Acetaminophen (Acetaminophen 325 Mg Tab) 975 mg PO ONETIME [facility] Stop: 09/16/20 13:00 Last Admin: 09/16/20 08:44 Dose: 975 mg Documented by: Morphine Sulfate 8 mg/Epinephrine HCl 0.3 mg/Cefuroxime Sodium 750 mg/Ketorolac Tromethamine 30 mg/Sodium Chloride 7.9 ml 0 mg .XX ASDIRECTED PRN PRN Reason: Pain Stop: 09/16/20 18:00 Last Admin: 09/16/20 11:25 Dose: 788.3 mg Documented by: Diphenhydramine HCl (Diphenhydramine 50 Mg/Ml Sdv) 12.5 mg IVPUSH Q6H PRN PRN Reason: pruritis Stop: 09/16/20 18:00 Ephedrine Sulfate (Ephedrine 50 Mg/Ml Sdv) Confirm Administered Dose 50 mg .ROUTE .STK-MED ONE Stop: 09/16/20 09:37 Ephedrine Sulfate (Ephedrine 50 Mg/Ml Sdv) 5 mg IVPUSH ASDIRECTED PRN PRN Reason: Hypotension Stop: 09/16/20 18:00 Epinephrine HCl (Epinephrine 1 Mg/Ml Sdv) Confirm Administered Dose 1 mg .ROUTE .STK-MED ONE Stop: 09/16/20 06:51 Fentanyl (Fentanyl 100 Mcg/2 Ml Sdv) Confirm Administered Dose 100 mcg .ROUTE .STK-MED ONE Stop: 09/16/20 07:24 Fentanyl (Fentanyl 100 Mcg/2 Ml Sdv) 50 mcg IVPUSH Q20M PRN PRN Reason: Pain Stop: 09/16/20 18:00 Hydralazine HCl (Hydralazine 20 Mg/Ml Sdv) 10 mg IVPUSH Q2H PRN PRN Reason: Hypertension Hydromorphone HCl (Hydromorphone 0.5 Mg/0.5 Ml Syringe) 0.5 mg IVPUSH Q10M PRN PRN Reason: Pain (severe 7-10) Stop: 09/16/20 18:00 Lactated Ringer's (Ringers, Lactated) 1,000 mls @ 125 mls/hr IV ASDIRECTED [facility] Stop: 09/16/20 23:00 Last Admin: 09/16/20 08:49 Dose: 125 mls/hr Documented by: Lidocaine HCl (Xylocaine-Mpf 1%) Confirm Administered Dose 4 mls @ as directed .ROUTE .STK-MED ONE Stop: 09/16/20 07:23 Lactated Ringer's (Ringers, Lactated) Confirm Administered Dose 2,000 mls @ as directed .ROUTE .STK-MED ONE Stop: 09/16/20 07:23 Ketamine HCl (Ketamine 500 Mg/10 Ml Mdv) Confirm Administered Dose 500 mg .ROUTE .STK-MED ONE Stop: 09/16/20 07:24 Ketorolac Tromethamine (Ketorolac 30 Mg/Ml Sdv) Confirm Administered Dose 30 mg .ROUTE .STK-MED ONE Stop: 09/16/20 07:23 Lidocaine/Sodium Bicarbonate (Lidocaine 1%/Sod Bicarbonate In Ns 8.4% 1 Ml Syringe) 0.25 ml IDERM ONETIME PRN PRN Reason: Prior to IV Start Stop: 09/16/20 18:00 Metoprolol Succinate (Metoprolol Succinate 50 Mg Tab.Er) 50 mg PO BID [facility] Midazolam HCl (Midazolam 1 Mg/Ml 2 Ml Sdv) Confirm Administered Dose 2 mg .ROUTE .ST-MED ONE Stop: 09/16/20 07:24 Miscellaneous Medication (Phenylephrine Hcl In 0.9% Nacl 1 Mg/10 Ml Syringe) 0.1 mg IVPUSH Q10M PRN PRN Reason: Hypotension Stop: 09/16/20 18:00 Ondansetron HCl (Ondansetron 4 Mg/2 Ml Sdv) Confirm Administered Dose 4 mg .ROUTE .STK-MED ONE Stop: 09/16/20 07:23 Ondansetron HCl (Ondansetron 4 Mg/2 Ml Sdv) 4 mg IVPUSH ONETIME PRN PRN Reason: Nausea/Vomiting Stop: 09/16/20 18:00 Oxycodone HCl (Oxycodone Er 10 Mg Tab.Er) 10 mg PO ONETIME [facility] Stop: 09/16/20 13:00 Last Admin: 09/16/20 08:44 Dose: 10 mg Documented by: Oxycodone HCl (Oxycodone 5 Mg Tab) 5 - 10 mg PO Q6H PRN PRN Reason: Pain/Fever Pregabalin (Pregabalin 25 Mg Cap) 50 mg PO ONETIME [facility] Stop: 09/16/20 13:00 Last Admin: 09/16/20 08:45 Dose: 50 mg Documented by: Propofol (Propofol 200 Mg/20 Ml Sdv) Confirm Administered Dose 400 mg .ROUTE .STK-MED ONE Stop: 09/16/20 07:24 Ropivacaine (Ropivacaine 0.5% 5 Mg/Ml 30 Ml Sdv) Confirm Administered Dose 30 ml .ROUTE .STK-MED ONE Stop: 09/16/20 06:51 Scopolamine (Scopolamine 1.5 Mg Transdermal Patch) 1.5 mg TRDERM ONETIME ONE Stop: 09/16/20 09:31 Last Admin: 09/16/20 09:23 Dose: 1.5 mg Documented by: Sodium Chloride (Sodium Chloride 0.9% 10 Ml Syringe) 10 ml FLUSH ASDIRECTED PRN PRN Reason: Keep Vein Open Stop: 09/16/20 18:00 Tranexamic Acid (Tranexamic Acid 1,000 Mg/10 Ml Amp) Confirm Administered Dose 1,000 mg .ROUTE .STK-MED ONE Stop: 09/16/20 09:45 Last Admin: 09/16/20 11:31 Dose: 1,000 mg Documented by: Vancomycin HCl (Vancomycin 1 Gm Sdv) Confirm Administered Dose 1 gm .ROUTE .STK- MED ONE Stop: 09/16/20 09:45 Vancomycin HCl (Vancomycin 1 Gm Sdv) Confirm Administered Dose 1 gm .ROUTE .STK- MED ONE Stop: 09/16/20 10:24 Last Admin: 09/16/20 11:31 Dose: 1 gm Documented by: - Exam Wound/Incisions: Dressing Dry and Intact General: Alert, Cooperative, No Acute Distress Lungs: Normal Respiratory Effort Extremities: Other (NVS intact for BLE. Vangie's negative for LLE. ) Sepsis Event Note - Evaluation Sepsis Screening Result: No Definite Risk - Focused Exam Vital Signs: Vital Signs Temp Pulse Resp BP Pulse Ox 09/17/20 03:07 62 94 L 09/17/20 03:05 99.0 F 18 138/89 09/16/20 20:59 97.5 F 96 16 120/61 98 - Problem List Review Problem List Initiated/Reviewed/Updated: Yes - My Orders Last 24 Hours: Active Orders 24 hr Category Date Time Status Patient Status [ADT] Routine ADT 09/16/20 17:05 Active Ambulate [RC] BID Care 09/16/20 17:04 Active Antiembolic Devices [RC] BID Care 09/16/20 17:10 Active Blood Glucose Check, Bedside [RC] QIDACANDBED Care 09/16/20 19:02 Active May Shower [RC] DAILY Care 09/16/20 17:04 Active Notify Provider Consults [RC] DAILY Care 09/16/20 17:10 Active Notify Provider [RC] Care 09/16/20 10:23 Active Oxygen Therapy [RC] PRN Care 09/16/20 17:05 Active Pulse Oximetry [RC] ASDIRECTED Care 09/16/20 10:22 Active RT BiPAP/CPAP [RC] ASDIRECTED Care 09/16/20 15:25 Active RT Incentive Spirometry [RC] Q1HWA Care 09/16/20 17:04 Active Ready for Discharge [RC] PER UNIT ROUTINE Care 09/17/20 07:54 Ordered Telemetry Monitoring [Cardiac Monitoring] [RC] . Care 09/16/20 17:15 Active DIRECTED Up to Chair [RC] BID Care 09/16/20 17:04 Active Vital Signs [RC] Q4HR Care 09/16/20 17:05 Active Consult to Physician [CONS] Routine Cons 09/16/20 17:04 Active Regular Diet [DIET] Diet 09/16/20 Lunch Active Apixaban [Eliquis] Med 09/17/20 09:00 Active 2.5 mg PO BID Aspirin [Halfprin] Med 09/17/20 21:00 Active 81 mg PO BEDTIME Calcium Carbonate/Vitamin D3 [Calcium Carbonate/Vitamin Med 09/17/20 09:00 Active D 600 MG-200 Unit] 1 tab PO DAILY Cholecalciferol (Vitamin D3) [Vitamin D3] Med 09/17/20 09:00 Active 5,000 unit PO DAILY Cyclobenzaprine [Flexeril] Med 09/16/20 17:10 Active 5 mg PO BID PRN Diclofenac Sodium [Voltaren 1% Gel] Med 09/16/20 15:16 Pending DOSE gm TOP ASDIRECTED PRN Docusate Sodium [Colace] Med 09/16/20 17:04 Active 100 mg PO BID PRN Famotidine [Pepcid] Med 09/16/20 21:00 Active 20 mg PO Q12H Insulin Lispro [HumaLOG] Med 09/16/20 22:00 Active See Protocol SUBCUT QIDACANDBED Lactated Ringers [Ringers, Lactated] 1,000 ml Med 09/16/20 19:00 Active IV ASDIRECTED Levothyroxine Med 09/17/20 06:00 Active 125 mcg PO ACBREAKFAST Loratadine [Claritin] Med 09/17/20 09:00 Active 10 mg PO DAILY PRN Magnesium Hydroxide [Milk of Magnesia] Med 09/16/20 17:04 Active 30 ml PO BID PRN Metoprolol Succinate [Toprol XL] Med 09/17/20 09:00 Active 50 mg PO DAILY Metoprolol Tartrate [Lopressor] Med 09/16/20 18:01 Active 2.5 mg IVPUSH ASDIRECTED PRN Morphine Med 09/16/20 17:04 Active 1 mg IVPUSH Q2H PRN Naloxone [Narcan] Med 09/16/20 17:04 Active 0.1 mg IVPUSH Q5M PRN Ondansetron [Zofran] Med 09/16/20 17:04 Active 4 mg IVPUSH Q6H PRN Patient's Own Medication [Ptom] Med 09/16/20 15:16 Active 0 each EYEBOTH Q4H PRN Sennosides [Senna] Med 09/16/20 17:04 Active 8.6 mg PO BID PRN Zinc Sulfate [Zincate] Med 09/17/20 09:00 Active 220 mg PO DAILY bisacodyL [Dulcolax] Med 09/16/20 17:04 Active 5 mg PO DAILY PRN buPROPion [Wellbutrin XL] Med 09/17/20 09:00 Active 300 mg PO DAILY ceFAZolin [Ancef 2 GM/50 ML] 2 gm Med 09/16/20 17:00 Active Premix Bag 1 bag IV Q8H hydrALAZINE [Apresoline] Med 09/16/20 20:23 Active 10 mg IVPUSH Q4H PRN oxyCODONE Med 09/16/20 17:10 Active 5 - 10 mg PO Q4H PRN Antiembolic Hose [OM.PC] Per Unit Routine Oth 09/16/20 17:08 Ordered Ice Therapy [OM.PC] Per Unit Routine Oth 09/16/20 17:05 Ordered Medication Administration Instruction [OM.PC] Routine Oth 09/16/20 07:00 Ordered Peripheral IV Insertion Adult [OM.PC] Routine Oth 09/16/20 07:00 Ordered Resuscitation Status Routine Resus Stat 09/16/20 15:53 Ordered EKG 12 Lead [EK] Stat Ther 09/16/20 13:20 Ordered Medication Orders Apixaban (Apixaban 2.5 Mg Tab) 2.5 mg PO BID [facility] Aspirin (Aspirin 81 Mg Tab.Ec) 81 mg PO BEDTIME [facility] Bisacodyl (Bisacodyl 5 Mg Tab) 5 mg PO DAILY PRN PRN Reason: Constipation Bupropion HCl (Bupropion 150 Mg Tab.Er) 300 mg PO DAILY [facility] Calcium Carbonate (Calcium Carbonate/Vitamin D3 600 Mg-200 Units Tab) 1 tab PO DAILY [facility] Cholecalciferol (Cholecalciferol (Vitamin D3) 5,000 Unit Cap) 5,000 unit PO DAILY [facility] Cyclobenzaprine HCl (Cyclobenzaprine 10 Mg Tab) 5 mg PO BID PRN PRN Reason: Spasms Last Admin: 09/17/20 03:00 Dose: 5 mg Documented by: RANDOLPH Diclofenac Sodium (Diclofenac Sodium 1% Gel 100 Gm Tube) gm TOP ASDIRECTED PRN PRN Reason: Pain Docusate Sodium (Docusate Sodium 100 Mg Cap) 100 mg PO BID PRN PRN Reason: Constipation Famotidine (Famotidine 20 Mg Tab) 20 mg PO Q12H [facility] Last Admin: 09/16/20 22:34 Dose: 20 mg Documented by: RANDOLPH Hydralazine HCl (Hydralazine 20 Mg/Ml Sdv) 10 mg IVPUSH Q4H PRN PRN Reason: Hypertension Cefazolin Sodium/Dextrose 2 gm (/ Premix) 50 mls @ 100 mls/hr IV Q8H [facility] Stop: 09/17/20 09:29 Last Admin: 09/17/20 01:45 Dose: 100 mls/hr Documented by: Infusion: 09/16/20 19:11 Dose: 100 mls/hr Documented by: Admin: 09/16/20 18:41 Dose: 100 mls/hr Documented by: PAULO Lactated Ringer's (Ringers, Lactated) 1,000 mls @ 50 mls/hr IV ASDIRECTED [facility] Last Admin: 09/16/20 19:42 Dose: 50 mls/hr Documented by: ERICKSON Insulin Human Lispro (Insulin Lispro 100 Unit/Ml) 0 unit SUBCUT QIDACANDBED [facility]; Protocol Last Admin: 09/17/20 06:56 Dose: Not Given Documented by: Admin: 09/16/20 21:15 Dose: Not Given Documented by: RANDOLPH Levothyroxine Sodium (Levothyroxine 125 Mcg Tab) 125 mcg PO ACBREAKFAST [facility] Last Admin: 09/17/20 06:47 Dose: 125 mcg Documented by: RANDOLPH Loratadine (Loratadine 10 Mg Tab) 10 mg PO DAILY PRN PRN Reason: Allergies Magnesium Hydroxide (Magnesium Hydroxide 400 Mg/5 Ml Susp 30 Ml Cup) 30 ml PO BID PRN PRN Reason: Constipation Metoprolol Succinate (Metoprolol Succinate 50 Mg Tab.Er) 50 mg PO DAILY [facility] Metoprolol Tartrate (Metoprolol Tartrate 5 Mg/5 Ml Sdv) 2.5 mg IVPUSH ASDIRECTED PRN PRN Reason: Tachycardia Morphine Sulfate (Morphine 2 Mg/Ml Syringe) 1 mg IVPUSH Q2H PRN PRN Reason: Breakthrough pain Naloxone HCl (Naloxone 0.4 Mg/Ml Sdv) 0.1 mg IVPUSH Q5M PRN PRN Reason: Oversedation Ondansetron HCl (Ondansetron 4 Mg/2 Ml Sdv) 4 mg IVPUSH Q6H PRN PRN Reason: Nausea/Vomiting Oxycodone HCl (Oxycodone 5 Mg Tab) 5 - 10 mg PO Q4H PRN PRN Reason: Pain Last Admin: 09/17/20 06:46 Dose: 5 mg Documented by: Admin: 09/17/20 03:01 Dose: 5 mg Documented by: Admin: 09/16/20 22:34 Dose: 5 mg Documented by: Admin: 09/16/20 18:42 Dose: 5 mg Documented by: PAULO Ketotifen 5 Ml Drops Patient's Own Med 0 each EYEBOTH Q4H PRN PRN Reason: Allergies Senna (Sennosides 8.6 Mg Tab) 8.6 mg PO BID PRN PRN Reason: Constipation Zinc Sulfate (Zinc Sulfate 220 Mg Cap) 220 mg PO DAILY JUSTUS - Assessment Assessment (Free Text/Narrative):: POD#1 - left TKA - Plan Plan (Free Text/Narrative):: 1. Discharge to home today if cleared by Hospitalist service. Hospitalist consult obtained yesterday due to nursing concerns re: heart rate. 2. Resume use of Eliquis BID. Frequent mobility, TEDs. 3. Outpatient therapy. 4. Hgb 12.8. The pt's case was discussed with Dr. Thomas.
--- NOTE | 2020-09-17 08:16 | PCM48HPAN ---
Post Anesthesia Note - EVALUATION WITHIN 48HRS OF ANESTHETIC Vital Signs in Normal Range: Yes Patient Participated in Evaluation: Yes Respiratory Function Stable: Yes Airway Patent: Yes Cardiovascular Function Stable: Yes Hydration Status Stable: Yes Pain Control Satisfactory: Yes Nausea and Vomiting Control Satisfactory: Yes Mental Status Recovered: Yes Vital Signs: Last Vital Signs Temp 37.2 C 09/17/20 03:05 Pulse 62 09/17/20 03:07 Resp 18 09/17/20 03:05 BP 138/89 09/17/20 03:05 Pulse Ox 94 L 09/17/20 03:07
[2020-09-17] MEDS ORDERED: Calcium Carbonate/Vitamin D3 600 MG-200 Units Tab PO SCH (09:00)
[2020-09-17] MEDS ORDERED: Loratadine 10 MG Tab PO PRN (09:00)
[2020-09-17] MEDS ORDERED: Apixaban 2.5 MG Tab PO SCH (09:00)
[2020-09-17] MEDS ORDERED: Cholecalciferol (Vitamin D3) 5,000 UNIT Cap PO SCH (09:00)
[2020-09-17] MEDS ORDERED: buPROPion 150 MG Tab.ER PO SCH (09:00)
[2020-09-17] MEDS ORDERED: Zinc Sulfate 220 MG Cap PO SCH (09:00)
[2020-09-17] MEDS ORDERED: Metoprolol Succinate 50 MG Tab.ER PO SCH ×2 (09:00)
[2020-09-17 11:32] VITALS: BP 158/67
[2020-09-17 12:06] VITALS: PULSE 75
[2020-09-17] MEDS ORDERED: Famotidine 20 MG Tab PO SCH (21:00)
[2020-09-17] MEDS ORDERED: Aspirin 81 MG Tab.EC PO SCH (21:00)
--- NOTE | 2020-09-18 08:27 | PCM.DCSUM1 ---
Discharge Summary - Hospital Course Brief History: Catherine is an 80 yo female who underwent left TKA with Dr. Thomas on 09-16-2020. The procedure was completed under spinal anesthesia with sedation and a post-operative adductor canal block was provided. The pt tolerated the procedure well. She was admitted to Hospital under observation status for monitoring of heart rates due to hx bradycardia following surgery. Medical management was provided by the Hospitalist service. The pt's Hgb on POD#1 was 12.8. On POD#1, Eliquis BID was resumed. SCDs and TEDs were in place during Hospital stay. A Mepilex dressing was placed at the incision site at the time of surgery and remained clean and dry. The pt participated in P.T. and O.T. and progressed well. The pt was allowed to WBAT. On POD#1, the pt was deemed appropriate to discharge to home with her . - Discharge Data Discharge Date: 09/17/20 Discharge Disposition: Home, Self-Care 01 Condition: Good - Referral to Home Health Primary Care Physician: Albert Carlson MD - Patient Summary/Data Operative Procedure(s) Performed: left total knee arthroplasty with joe robotic assist Consults: Consultations 09/16/20 17:04 Consult to Physician [CONS] Routine 09/17/20 08:08 Consult to Physical Therapy [PT Evaluation and Treatment] [CONS] Routine 09/17/20 08:09 Consult to Occupational Therapy [OT Evaluation and Treatment] [CONS] Routine - Patient Instructions Diet: Usual Diet as Tolerated Activity: Apply Ice, As Tolerated, Elevate Extremity, Full Weight Bearing Driving: Do Not Drive Showering/Bathing: May Shower Wound/Incision Care: Keep Operative Site/Wound Site Clean and Dry, Do NOT Change Dressing Notify Provider of: Fever, Increased Pain, Swelling and Redness, Drainage, Nausea and/or Vomiting Other/Special Instructions: Please get up and moving around EVERY HOUR while awake. This helps to prevent blood clots. Please use your walker and have help with mobility as needed. Take a short walk in your home every hour while awake. Starting on 09-17-2020, please resume use of Eliquis twice daily. At home, please complete the exercises that you learned after surgery. Schedule for physical therapy. Use the pain medication as needed. The medication may cause drowsiness and constipation. Contact your primary care provider for instructions if you are constipated. You may use a stool softener like docusate sodium or Colace 100mg twice daily and/or a laxative like Miralax daily for constipation. Increase your water and fiber intake while you are using the pain medication. Please discontinue use of the prescription pain medication as soon as able. The goal is to use the least amount of prescription pain medication as possible and to discontinue use of the prescription pain medication as soon as possible. Please do not use other medications that may cause drowsiness (other pain medications, anxiety pills, cold medications, sleeping pills, etc) while using the prescription pain medication. Do not use alcohol while using the pain medication. You may use acetaminophen or Tylenol for pain management, however, please ensure you are not using over 3000 mg or 3 grams of acetaminophen per day. On the day following surgery, you may remove the TING bandage on the surgical limb and put on the GREY hose. If you can tolerate use of the GREY hose, wear them during the day and remove them at night. Elevate the limb to decrease swelling. Elevating the limb above the level of the heart will be most effective. Elevating the foot higher than the knee will help to decrease swelling in the foot. Place ice to the area often. Place a towel between your skin and the blue pad. Follow-up with primary care provider within 7-10 days of discharge, sooner if needed. Please keep the dressing in place until follow-up. As long as the dressing is sealed and without a hole, the dressing is water resistant and therefore, you may have a shower. Please do not soak that dressing in a tub, pool, whirlpool. Notify the Clinic if the dressing becomes saturated. Increase your protein intake while you are healing. It is normal to have swelling and bruising at the surgical site, as well as above and below the surgical site. If you have diabetes or have been instructed by your primary care provider to monitor your blood sugars, please closely monitor your sugars. Notify your primary care provider of the values. Elevated sugars can increase the risk of infection. If you have questions or concerns, please call [phone] and leave a message for the nurse. Your call will be returned. Recommend follow-up with primary care provider within 5-7 days of discharge, sooner if needed. Recommend check pulse twice daily and record it in a journal. Bring this with to all medical appointments. The dosing for your metoprolol succinate was changed. Instead of taking it twice a day you should now take it once a day. A new prescription was sent to your pharmacy. - Discharge Plan *PRESCRIPTION DRUG MONITORING PROGRAM REVIEWED*: No *COPY OF PRESCRIPTION DRUG MONITORING REPORT IN PATIENT MARCOS: No Prescriptions/Med Rec: oxyCODONE 5 - 10 mg PO Q6H PRN #40 tab PRN Reason: Pain Metoprolol Succinate [Toprol XL 50mg] 50 mg PO DAILY #20 tab.er Home Medications: Home Meds Apixaban [Eliquis] 2.5 mg PO BID 07/03/16 [History] Aspirin [Halfprin] 81 mg PO BEDTIME 07/03/16 [History] Cholecalciferol (Vitamin D3) [Vitamin D] 5,000 unit PO DAILY 07/03/16 [History] Denosumab [Prolia] 60 mg SQ Q6M 02/04/18 [History] Diclofenac Sodium 1 dose TOP ASDIRECTED PRN 02/04/18 [History] Fexofenadine [Emily] 180 mg PO DAILY PRN 02/04/18 [History] Furosemide 20 mg PO DAILY 02/04/18 [History] Ketotifen Fumarate [Allergy Eye Drops] 1 drop EYEBOTH Q4H PRN 02/04/18 [History] Simvastatin 10 mg PO BEDTIME 02/04/18 [History] Levothyroxine 125 mcg PO DAILY 08/21/19 [History] buPROPion HCL [Wellbutrin Xl] 300 mg PO DAILY 08/21/19 [History] Calcium Carbonate/Vitamin D3 [Os-[place] 500+D] 1 tab PO DAILY 09/13/20 [History] Zinc Amino Acid Chelate [Zinc] 100 mg PO DAILY 09/13/20 [History] oxyCODONE 5 - 10 mg PO Q6H PRN #40 tab 09/16/20 [Rx] Metoprolol Succinate [Toprol XL 50mg] 50 mg PO DAILY #20 tab.er 09/17/20 [Rx] Patient Handouts: Oxycodone tablets or capsules, Total Knee Replacement, Care After Referrals: Clara Wallace PA-C [Physician Psychometrist] - 09/24/20 2:15 pm (Follow up appointment scheduled for Thursday, September 24, 2020 at 2:15 pm with lCara Wallace PA-C at [facility].) Albert Carlson MD [Primary Care Provider] - 09/26/20 10:45 am (Hospital follow-up appointment.) - Discharge Summary/Plan Comment DC Time >30 min.: No - Patient Data Vitals - Most Recent: Last Vital Signs Temp 97.9 F 09/17/20 11:53 Pulse 75 09/17/20 11:53 Resp 14 09/17/20 11:53 BP 158/67 H 09/17/20 11:07 Pulse Ox 94 L 09/17/20 11:53 Weight - Most Recent: 130 lb 11.2 oz I&O - Last 24 hours: Intake & Output 09/17/20 09/18/20 09/18/20 22:59 06:59 14:59 Intake Total 120 Balance 120 Lab Results - Last 24 hrs: Laboratory Results - last 24 hr 09/17/20 Range/Units 11:03 POC Glucose 97 (83-110) mg/dL Med Orders - Current: Current Medications Discontinued Medications Acetaminophen (Acetaminophen 325 Mg Tab) 975 mg PO ONETIME [facility] Stop: 09/16/20 13:00 Last Admin: 09/16/20 08:44 Dose: 975 mg Documented by: Apixaban (Apixaban 2.5 Mg Tab) 2.5 mg PO BID [facility] Last Admin: 09/17/20 08:24 Dose: 2.5 mg Documented by: Aspirin (Aspirin 81 Mg Tab.Ec) 81 mg PO BEDTIME [facility] Bisacodyl (Bisacodyl 5 Mg Tab) 5 mg PO DAILY PRN PRN Reason: Constipation Bupropion HCl (Bupropion 150 Mg Tab.Er) 300 mg PO DAILY [facility] Last Admin: 09/17/20 08:23 Dose: 300 mg Documented by: Calcium Carbonate (Calcium Carbonate/Vitamin D3 600 Mg-200 Units Tab) 1 tab PO DAILY [facility] Last Admin: 09/17/20 08:23 Dose: 1 tab Documented by: Cholecalciferol (Cholecalciferol (Vitamin D3) 5,000 Unit Cap) 5,000 unit PO DAILY [facility] Last Admin: 09/17/20 08:24 Dose: 5,000 unit Documented by: Morphine Sulfate 8 mg/Epinephrine HCl 0.3 mg/Cefuroxime Sodium 750 mg/Ketorolac Tromethamine 30 mg/Sodium Chloride 7.9 ml 0 mg .XX ASDIRECTED PRN PRN Reason: Pain Stop: 09/16/20 18:00 Last Admin: 09/16/20 11:25 Dose: 788.3 mg Documented by: Cyclobenzaprine HCl (Cyclobenzaprine 10 Mg Tab) 5 mg PO BID PRN PRN Reason: Spasms Last Admin: 09/17/20 03:00 Dose: 5 mg Documented by: Diclofenac Sodium (Diclofenac Sodium 1% Gel 100 Gm Tube) gm TOP ASDIRECTED PRN PRN Reason: Pain Diphenhydramine HCl (Diphenhydramine 50 Mg/Ml Sdv) 12.5 mg IVPUSH Q6H PRN PRN Reason: pruritis Stop: 09/16/20 18:00 Docusate Sodium (Docusate Sodium 100 Mg Cap) 100 mg PO BID PRN PRN Reason: Constipation Last Admin: 09/17/20 11:54 Dose: 100 mg Documented by: Ephedrine Sulfate (Ephedrine 50 Mg/Ml Sdv) Confirm Administered Dose 50 mg .ROUTE .STK-MED ONE Stop: 09/16/20 09:37 Ephedrine Sulfate (Ephedrine 50 Mg/Ml Sdv) 5 mg IVPUSH ASDIRECTED PRN PRN Reason: Hypotension Stop: 09/16/20 18:00 Epinephrine HCl (Epinephrine 1 Mg/Ml Sdv) Confirm Administered Dose 1 mg .ROUTE .STK-MED ONE Stop: 09/16/20 06:51 Famotidine (Famotidine 20 Mg Tab) 20 mg PO Q12H [facility] Last Admin: 09/16/20 22:34 Dose: 20 mg Documented by: Famotidine (Famotidine 20 Mg Tab) 20 mg PO BEDTIME [facility] Fentanyl (Fentanyl 100 Mcg/2 Ml Sdv) Confirm Administered Dose 100 mcg .ROUTE .STK-MED ONE Stop: 09/16/20 07:24 Fentanyl (Fentanyl 100 Mcg/2 Ml Sdv) 50 mcg IVPUSH Q20M PRN PRN Reason: Pain Stop: 09/16/20 18:00 Hydralazine HCl (Hydralazine 20 Mg/Ml Sdv) 10 mg IVPUSH Q2H PRN PRN Reason: Hypertension Hydralazine HCl (Hydralazine 20 Mg/Ml Sdv) 10 mg IVPUSH Q4H PRN PRN Reason: Hypertension Hydromorphone HCl (Hydromorphone 0.5 Mg/0.5 Ml Syringe) 0.5 mg IVPUSH Q10M PRN PRN Reason: Pain (severe 7-10) Stop: 09/16/20 18:00 Lactated Ringer's (Ringers, Lactated) 1,000 mls @ 125 mls/hr IV ASDIRECTED [facility] Stop: 09/16/20 23:00 Last Admin: 09/16/20 08:49 Dose: 125 mls/hr Documented by: Lidocaine HCl (Xylocaine-Mpf 1%) Confirm Administered Dose 4 mls @ as directed .ROUTE .STK-MED ONE Stop: 09/16/20 07:23 Lactated Ringer's (Ringers, Lactated) Confirm Administered Dose 2,000 mls @ as directed .ROUTE .STK-MED ONE Stop: 09/16/20 07:23 Cefazolin Sodium/Dextrose 2 gm (/ Premix) 50 mls @ 100 mls/hr IV Q8H [facility] Stop: 09/17/20 09:29 Last Admin: 09/17/20 08:24 Dose: 100 mls/hr Documented by: Lactated Ringer's (Ringers, Lactated) 1,000 mls @ 50 mls/hr IV ASDIRECTED [facility] Last Admin: 09/16/20 19:42 Dose: 50 mls/hr Documented by: Insulin Human Lispro (Insulin Lispro 100 Unit/Ml) 0 unit SUBCUT QIDACANDBED [facility]; Protocol Last Admin: 09/17/20 12:06 Dose: Not Given Documented by: Ketamine HCl (Ketamine 500 Mg/10 Ml Mdv) Confirm Administered Dose 500 mg .ROUTE .STK-MED ONE Stop: 09/16/20 07:24 Ketorolac Tromethamine (Ketorolac 30 Mg/Ml Sdv) Confirm Administered Dose 30 mg .ROUTE .STK-MED ONE Stop: 09/16/20 07:23 Levothyroxine Sodium (Levothyroxine 125 Mcg Tab) 125 mcg PO ACBREAKFAST [facility] Last Admin: 09/17/20 06:47 Dose: 125 mcg Documented by: Lidocaine/Sodium Bicarbonate (Lidocaine 1%/Sod Bicarbonate In Ns 8.4% 1 Ml Syringe) 0.25 ml IDERM ONETIME PRN PRN Reason: Prior to IV Start Stop: 09/16/20 18:00 Loratadine (Loratadine 10 Mg Tab) 10 mg PO DAILY PRN PRN Reason: Allergies Magnesium Hydroxide (Magnesium Hydroxide 400 Mg/5 Ml Susp 30 Ml Cup) 30 ml PO BID PRN PRN Reason: Constipation Metoprolol Succinate (Metoprolol Succinate 50 Mg Tab.Er) 50 mg PO BID [facility] Metoprolol Succinate (Metoprolol Succinate 50 Mg Tab.Er) 50 mg PO DAILY [facility] Last Admin: 09/17/20 08:23 Dose: 50 mg Documented by: Metoprolol Tartrate (Metoprolol Tartrate 5 Mg/5 Ml Sdv) 2.5 mg IVPUSH ASDIRECTED PRN PRN Reason: Tachycardia Midazolam HCl (Midazolam 1 Mg/Ml 2 Ml Sdv) Confirm Administered Dose 2 mg .ROUTE .STK-MED ONE Stop: 09/16/20 07:24 Miscellaneous Medication (Phenylephrine Hcl In 0.9% Nacl 1 Mg/10 Ml Syringe) 0.1 mg IVPUSH Q10M PRN PRN Reason: Hypotension Stop: 09/16/20 18:00 Morphine Sulfate (Morphine 2 Mg/Ml Syringe) 1 mg IVPUSH Q2H PRN PRN Reason: Breakthrough pain Naloxone HCl (Naloxone 0.4 Mg/Ml Sdv) 0.1 mg IVPUSH Q5M PRN PRN Reason: Oversedation Ondansetron HCl (Ondansetron 4 Mg/2 Ml Sdv) Confirm Administered Dose 4 mg .ROUTE .STK-MED ONE Stop: 09/16/20 07:23 Ondansetron HCl (Ondansetron 4 Mg/2 Ml Sdv) 4 mg IVPUSH ONETIME PRN PRN Reason: Nausea/Vomiting Stop: 09/16/20 18:00 Ondansetron HCl (Ondansetron 4 Mg/2 Ml Sdv) 4 mg IVPUSH Q6H PRN PRN Reason: Nausea/Vomiting Oxycodone HCl (Oxycodone Er 10 Mg Tab.Er) 10 mg PO ONETIME [facility] Stop: 09/16/20 13:00 Last Admin: 09/16/20 08:44 Dose: 10 mg Documented by: Oxycodone HCl (Oxycodone 5 Mg Tab) 5 - 10 mg PO Q6H PRN PRN Reason: Pain/Fever Oxycodone HCl (Oxycodone 5 Mg Tab) 5 - 10 mg PO Q4H PRN PRN Reason: Pain Last Admin: 09/17/20 11:53 Dose: 5 mg Documented by: Ketotifen 5 Ml Drops Patient's Own Med 0 each EYEBOTH Q4H PRN PRN Reason: Allergies Pregabalin (Pregabalin 25 Mg Cap) 50 mg PO ONETIME [facility] Stop: 09/16/20 13:00 Last Admin: 09/16/20 08:45 Dose: 50 mg Documented by: Propofol (Propofol 200 Mg/20 Ml Sdv) Confirm Administered Dose 400 mg .ROUTE .STK-MED ONE Stop: 09/16/20 07:24 Ropivacaine (Ropivacaine 0.5% 5 Mg/Ml 30 Ml Sdv) Confirm Administered Dose 30 ml .ROUTE .STK-MED ONE Stop: 09/16/20 06:51 Scopolamine (Scopolamine 1.5 Mg Transdermal Patch) 1.5 mg TRDERM ONETIME ONE Stop: 09/16/20 09:31 Last Admin: 09/16/20 09:23 Dose: 1.5 mg Documented by: Senna (Sennosides 8.6 Mg Tab) 8.6 mg PO BID PRN PRN Reason: Constipation Sodium Chloride (Sodium Chloride 0.9% 10 Ml Syringe) 10 ml FLUSH ASDIRECTED PRN PRN Reason: Keep Vein Open Stop: 09/16/20 18:00 Tranexamic Acid (Tranexamic Acid 1,000 Mg/10 Ml Amp) Confirm Administered Dose 1,000 mg .ROUTE .STK-MED ONE Stop: 09/16/20 09:45 Last Admin: 09/16/20 11:31 Dose: 1,000 mg Documented by: Vancomycin HCl (Vancomycin 1 Gm Sdv) Confirm Administered Dose 1 gm .ROUTE .STK- MED ONE Stop: 09/16/20 09:45 Vancomycin HCl (Vancomycin 1 Gm Sdv) Confirm Administered Dose 1 gm .ROUTE .STK- MED ONE Stop: 09/16/20 10:24 Last Admin: 09/16/20 11:31 Dose: 1 gm Documented by: Zinc Sulfate (Zinc Sulfate 220 Mg Cap) 220 mg PO DAILY [facility] Last Admin: 09/17/20 08:24 Dose: 220 mg Documented by:
--- NOTE | 2020-09-29 18:37 | OR ---
DATE OF OPERATION: 09/16/2020 SURGEON: Edgar Thomas MD OPERATION PERFORMED: Left total knee arthroplasty with Jeffery robotic assist. PREOPERATIVE DIAGNOSIS: Left knee osteoarthrosis. POSTOPERATIVE DIAGNOSIS: Left knee osteoarthrosis. ANESTHESIA: Local MAC with spinal. ANESTHESIA PROVIDER: Kayley Flores CRNA ASSISTANTS: Clara Wallace PA-C and Claire Luna LPN. ESTIMATED BLOOD LOSS: 5 mL. COMPLICATIONS: None. CONDITION: Stable. IMPLANTS: 1. [place] size 4 cemented PS femur. 2. Cristopher size 3 cemented [place] tibial baseplate. 3. Cristopher size 3, 9 mm PS X3 polyethylene. 4. Cristopher size 29 x 9 mm cemented asymmetric patella. DESCRIPTION OF PROCEDURE: The patient was identified in the preop holding area. Proper site was marked and identified by the surgeon. The patient was taken back to the operating theater where after adequate anesthesia, the patient's left lower extremity was sterilely prepped and draped in the usual sterile fashion. OR time-out was performed. The patient received 2 g of IV Ancef. The leg alejandre boot was then applied. Left lower extremity was exsanguinated. Tourniquet was insufflated to 250 mmHg. Standard anterior incision was made. Medial parapatellar arthrotomy was created. Deep fibers of the MCL were raised and anterior fat pad was resected. Attention was turned to the patella. Patella measured 21, resected to a 13 for a 29 x 9 mm patella. Drill holes were drilled and found to be adequate. Two 4.0 pins were then placed intra-incisionally in the femur as well as 3 fingerbreadths distally to the tibial tubercle for the Crist[place] Jeffery robotic arrays for the femur and the tibia. Checkpoints were then placed on the femur and the tibia at this time as well. Hip center rotation was then obtained, and medial and lateral malleoli were marked. At this point, 40 points were taken off both the femur and the tibia for the [place] Jeffery robotic plan. At this time, the patient's knee was brought into full extension. Varus and valgus stresses were applied as well as in 90 degrees of flexion. 18 mm gaps in both extension and flexion were then done changing varus and rotation. Cristopher Jeffery robotic arm was brought in, retractors were placed, the straight saw blade was then used for resection of the tibia, the anterior femoral cut, anterior chamfer cut, and posterior femoral cut. Saw blade was then switched and the posterior chamfer cut and distal femoral cut were completed. All bony fragments were removed. The box cut was then completed for a size 4 at this time. Medial and lateral meniscus were then removed as well as any posterior osteophytes. Trial implants with size 3 tibia and size 4 femur were placed and a 9 mm trial spacer was placed. The patient had full flexion and extension. No varus or valgus instability on the [place] robotic plan. At this time, cement was mixed on the back table. The tibia was stamped and drilled in proper rotation. Guide pins and arrays were removed as well as the checkpoints. All cut surfaces were irrigated with pulse lavage irrigation with Ancef and then completely dried. Once the cement was ready, the size 3 tibial baseplate was cemented into place, size 4 femur was cemented into place, 9 mm PS X3 polyethylene was placed. The patient's knee was brought into full extension. Excess cement was removed. 29 x 9 mm patella was then cemented into place. 1 L of pulse lavage irrigation with Ancef was then irrigated through the knee as well as 400 mL of IrriSept irrigation. The periarticular injection was completed. Topical tranexamic acid and vancomycin powder were applied. A #2 barbed suture was used for closure of the medial parapatellar arthrotomy. 2-0 Vicryl and Stratafix were used for subcutaneous closure and Prineo was used for skin closure. The patient had sterile soft dressing applied and was sent to PACU in stable condition having tolerated the procedure well. MMODAL /[id number]
== END 2020-09-17 13:38 | disposition home or self-care (01) ==
LOC: JD.SDS 08:31 → JD.MS 08:31 → JD.SDS 16:00 → JD.MS 16:01
PROVIDERS: ADMIT Orthopaedic Surgery; ATTEND Orthopaedic Surgery
DX: M17.0 Bilateral primary osteoarthritis of knee (principal); I48.91 Unspecified atrial fibrillation; M25.762 Osteophyte, left knee; I11.0 Hypertensive heart disease with heart failure; I50.9 Heart failure, unspecified; E78.00 Pure hypercholesterolemia, unspecified; E78.2 Mixed hyperlipidemia; G25.0 Essential tremor; E03.9 Hypothyroidism, unspecified; G47.33 Obstructive sleep apnea (adult) (pediatric); E11.9 Type 2 diabetes mellitus without complications; R00.1 Bradycardia, unspecified; K21.9 Gastro-esophageal reflux disease without esophagitis; K29.70 Gastritis, unspecified, without bleeding; M16.12 Unilateral primary osteoarthritis, left hip; M81.0 Age-related osteoporosis without current pathological fracture; R32 Unspecified urinary incontinence; G89.18 Other acute postprocedural pain; I38 Endocarditis, valve unspecified; F32.9 Major depressive disorder, single episode, unspecified; H69.80 Other specified disorders of Eustachian tube, unspecified ear; Z79.890 Hormone replacement therapy; Z79.899 Other long term (current) drug therapy; Z79.82 Long term (current) use of aspirin; Z91.09 Other allergy status, other than to drugs and biological substances; Z91.041 Radiographic dye allergy status; Z87.891 Personal history of nicotine dependence; Z86.73 Personal history of transient ischemic attack (TIA), and cerebral infarction without residual deficits; Z98.890 Other specified postprocedural states
CPT/HCPCS: 27447; 36415; 73560; 80053; 82962; 83735; 84484; 85025; 85027; 85610; 85730; 93005; 97110; 97116; 97161; 97165; 97535; A9270; C1713; C1776; G0378; J0171; J0690; J0697; J1885; J2250; J2270; J2405; J2704; J2795; J3370; J7120; 01402; 64450; 76942; 97140-GP; 99100; 99203; 99213; J3010

== ENCOUNTER 2022-01-15 16:59 | Emergency (ER) | payer MEDICARE, BC ==
[2022-01-15 17:21] VITALS: BP 148/81; PULSE 82
[2022-01-15] MEDS ORDERED: Famotidine 20 MG/2 ML SDV IVPUSH PRN (18:39)
[2022-01-15] MEDS ORDERED: EPINEPHrine 1 MG/ML SDV IM PRN (18:39)
[2022-01-15] MEDS ORDERED: diphenhydrAMINE 50 MG/ML SDV IVPUSH PRN (18:39)
[2022-01-15] MEDS ORDERED: methylPREDNISolone Sodium Succinate 125 MG/2 ML SDV IVPUSH PRN (18:39)
[2022-01-15] MEDS ORDERED: Sodium Chloride 0.9% 10 ML Syringe FLUSH SCH (18:45)
== END 2022-01-15 20:08 | disposition home or self-care (01) ==
LOC: JD.ED 16:59
DX: U07.1 COVID-19 (principal); I11.0 Hypertensive heart disease with heart failure; I50.9 Heart failure, unspecified; E03.9 Hypothyroidism, unspecified; E11.9 Type 2 diabetes mellitus without complications; Z91.048 Other nonmedicinal substance allergy status; Z91.041 Radiographic dye allergy status; Z79.01 Long term (current) use of anticoagulants; Z79.82 Long term (current) use of aspirin; Z90.49 Acquired absence of other specified parts of digestive tract; Z79.899 Other long term (current) drug therapy
CPT/HCPCS: 36415; 71045; 80053; 81001; 84484; 85025; 93005; 99284; M0222; Q0222

== ENCOUNTER 2023-01-26 16:44 | Emergency (ER) | payer MEDICARE, BC ==
[2023-01-26 16:56] VITALS: PULSE 62
[2023-01-26 17:59] LABS: A/G RATIO 1.2 (1-2); ALBUMIN 3.9 g/dl (3.4-5.0); ANION GAP 10.6 (5-15); BILIRUBIN TOTAL 0.4 mg/dL (0.2-1.0); BUN/CREATININE RATIO 16.9 (14-18); C-REACTIVE PROTEIN 0.4 mg/dL (<1.0); CALCIUM 9.3 mg/dL (8.5-10.1); CREATININE 1.3 mg/dL (0.55-1.02); EST CRCL DRUG DOSING (CG) 28.31 mL/min; POTASSIUM,K 4.6 mEq/L (3.5-5.1); PROTEIN TOTAL,TP 7.2 g/dl (6.4-8.2); URIC ACID 4.3 mg/dL (2.6-6.0)
[2023-01-26 19:03] VITALS: BP 177/86
== END 2023-01-26 19:03 | disposition home or self-care (01) ==
LOC: JD.ED 16:44
DX: M79.671 Pain in right foot (principal); I48.91 Unspecified atrial fibrillation; I11.0 Hypertensive heart disease with heart failure; I50.9 Heart failure, unspecified; E78.00 Pure hypercholesterolemia, unspecified; K21.9 Gastro-esophageal reflux disease without esophagitis; E11.9 Type 2 diabetes mellitus without complications; E03.9 Hypothyroidism, unspecified; Z91.09 Other allergy status, other than to drugs and biological substances; Z91.041 Radiographic dye allergy status; Z79.01 Long term (current) use of anticoagulants; Z79.82 Long term (current) use of aspirin; Z79.899 Other long term (current) drug therapy; Z86.73 Personal history of transient ischemic attack (TIA), and cerebral infarction without residual deficits
CPT/HCPCS: 36415; 73630-26-RT; 73630-RT; 80053; 84550; 86140; 99283

== ENCOUNTER 2023-08-04 11:08 | Emergency (ER) | payer MEDICARE, BC ==
[2023-08-04 12:57] VITALS: BP 175/89; PULSE 63
== END 2023-08-04 12:44 | disposition home or self-care (01) ==
LOC: JD.ED 11:08
DX: S09.90XA Unspecified injury of head, initial encounter (principal); I11.0 Hypertensive heart disease with heart failure; I50.9 Heart failure, unspecified; E78.00 Pure hypercholesterolemia, unspecified; E11.9 Type 2 diabetes mellitus without complications; E03.9 Hypothyroidism, unspecified; Z79.82 Long term (current) use of aspirin; Z79.01 Long term (current) use of anticoagulants; Z79.899 Other long term (current) drug therapy; Z91.048 Other nonmedicinal substance allergy status; Z91.041 Radiographic dye allergy status
CPT/HCPCS: 70450; 70450-26; 72125; 72125-26; 99283; 99284

== ENCOUNTER 2024-01-29 21:25 | Emergency (ER) | payer MEDICARE, BC ==
[2024-01-29 21:43] VITALS: PULSE 88
[2024-01-29] MEDS ORDERED: Sodium Chloride 0.9% 10 ML Syringe FLUSH PRN (22:03)
[2024-01-29] MEDS: methylPREDNISolone Sodium Succinate 40 MG/1 ML SDV IVPUSH ONE (22:24)
[2024-01-29] MEDS: HYDROmorphone 0.5 MG/0.5 ML Syringe IVPUSH ONE ×2 (22:24→22:56)
[2024-01-29 22:27] LABS: BASOPHILS PERCENT AUTO 0.4 % (0.0-1.0); EOSINOPHILS PERCENT AUTO 0.4 % (0.0-6.0); HEMATOCRIT 45.9 % (37.0-47.0); HEMOGLOBIN 15.3 gm/dl (12.0-16.0); IMMATURE GRAN ABSOLUTE AUTO 0.03 K/mm3 (0.00-0.05); IMMATURE GRAN PERCENT AUTO 0.4 % (0.0-0.4); LYMPHOCYTES ABSOLUTE AUTO 0.9 K/mm3 (1.0-4.8); LYMPHOCYTES PERCENT AUTO 12.6 % (24.0-44.0); MEAN CORPUSCULAR HEMOGLOBIN 31.2 pg (28.0-32.0); MEAN CORPUSCULAR HGB CONC 33.3 g/dl (32.0-36.0); MEAN CORPUSCULAR VOLUME 93.7 fl (83.0-99.0); MEAN PLATELET VOLUME 11.7 fl (9.4-12.3); MONOCYTES PERCENT AUTO 13.3 % (0.0-8.0); NEUTROPHILS ABSOLUTE AUTO 5.2 K/mm3 (1.8-7.7); NEUTROPHILS PERCENT AUTO 72.9 % (41.0-71.0); PLATELET COUNT,PLT 204 K/mm3 (150-400); WHITE BLOOD CELL COUNT,WBC 7.16 K/mm3 (3.9-11.3)
[2024-01-29 22:47] LABS: ALANINE AMINOTRANSFERASE,ALT 24 U/L (14-59); ALBUMIN 3.8 g/dl (3.4-5.0); ALKALINE PHOSPHATASE 86 U/L (46-116); ASPARTATE AMNIOTRANSFERASE,AST 16 U/L (15-37); BILIRUBIN TOTAL 1.1 mg/dL (0.2-1.0); BLOOD UREA NITROGEN,BUN 20 mg/dL (7-18); BUN/CREATININE RATIO 15.4 (14-18); CALCIUM 9.5 mg/dL (8.5-10.1); CARBON DIOXIDE,CO2 26 mEq/L (21-32); CHLORIDE,CL 101 mEq/L (98-107); CREATININE 1.3 mg/dL (0.55-1.02); ESTIMATED GFR 41 mL/min (>60); GLUCOSE RANDOM 92 mg/dL (70-99); PROTEIN TOTAL,TP 7.6 g/dl (6.4-8.2); SODIUM,NA 138 mEq/L (136-145)
[2024-01-29 23:48] VITALS: BP 135/85
== END 2024-01-29 23:30 | disposition home or self-care (01) ==
LOC: JD.ED 21:25
DX: M62.830 Muscle spasm of back (principal); M62.838 Other muscle spasm; I11.0 Hypertensive heart disease with heart failure; I50.9 Heart failure, unspecified; E78.00 Pure hypercholesterolemia, unspecified; K21.9 Gastro-esophageal reflux disease without esophagitis; M19.90 Unspecified osteoarthritis, unspecified site; E11.9 Type 2 diabetes mellitus without complications; E03.9 Hypothyroidism, unspecified; Z90.49 Acquired absence of other specified parts of digestive tract; Z79.899 Other long term (current) drug therapy; Z79.82 Long term (current) use of aspirin; Z91.048 Other nonmedicinal substance allergy status
CPT/HCPCS: 36415; 71111; 71111-26; 80053; 83735; 85025; 96374; 96375; 96376; 99283-25; 99284; J1170; J2919; J3360

== ENCOUNTER 2024-03-08 17:25 | Emergency (ER) | payer MEDICARE, BC ==
[2024-03-08 19:44] LABS: BASOPHILS PERCENT AUTO 0.8 % (0.0-1.0); EOSINOPHILS ABSOLUTE AUTO 0.1 K/mm3 (0.0-0.4); HEMATOCRIT 45.5 % (37.0-47.0); HEMOGLOBIN 15.1 gm/dl (12.0-16.0); IMMATURE GRAN ABSOLUTE AUTO 0.01 K/mm3 (0.00-0.05); IMMATURE GRAN PERCENT AUTO 0.2 % (0.0-0.4); LYMPHOCYTES ABSOLUTE AUTO 1.1 K/mm3 (1.0-4.8); LYMPHOCYTES PERCENT AUTO 22.6 % (24.0-44.0); MEAN CORPUSCULAR HEMOGLOBIN 30.8 pg (28.0-32.0); MEAN CORPUSCULAR HGB CONC 33.2 g/dl (32.0-36.0); MEAN CORPUSCULAR VOLUME 92.9 fl (83.0-99.0); MEAN PLATELET VOLUME 12.3 fl (9.4-12.3); MONOCYTES ABSOLUTE AUTO 0.5 K/mm3 (0.0-0.8); MONOCYTES PERCENT AUTO 10.1 % (0.0-8.0); NEUTROPHILS ABSOLUTE AUTO 3.2 K/mm3 (1.8-7.7); NEUTROPHILS PERCENT AUTO 64.3 % (41.0-71.0); PLATELET COUNT,PLT 172 K/mm3 (150-400); WHITE BLOOD CELL COUNT,WBC 5.04 K/mm3 (3.9-11.3)
[2024-03-08 20:03] LABS: A/G RATIO 1.3 (1-2); ALBUMIN 4.3 g/dl (3.4-5.0); ANION GAP 14.2 (5-15); BUN/CREATININE RATIO 17.5 (14-18); CALCIUM 9.9 mg/dL (8.5-10.1); CREATININE 1.2 mg/dL (0.55-1.02); EST CRCL DRUG DOSING (CG) 30.14 mL/min; POTASSIUM,K 4.2 mEq/L (3.5-5.1); PROTEIN TOTAL,TP 7.5 g/dl (6.4-8.2)
[2024-03-08] MEDS: hydrALAZINE 20 MG/ML SDV IVPUSH ONE ×2 (20:04→22:38)
[2024-03-08] MEDS: Sodium Chloride 0.9% 10 ML Syringe FLUSH PRN (20:04)
[2024-03-08 23:42] VITALS: BP 130/72; PULSE 83
== END 2024-03-08 23:40 | disposition home or self-care (01) ==
LOC: JD.ED 17:25
DX: R07.89 Other chest pain (principal); I11.0 Hypertensive heart disease with heart failure; I50.9 Heart failure, unspecified; I48.91 Unspecified atrial fibrillation; E78.00 Pure hypercholesterolemia, unspecified; K21.9 Gastro-esophageal reflux disease without esophagitis; E11.9 Type 2 diabetes mellitus without complications; E03.9 Hypothyroidism, unspecified; Z79.01 Long term (current) use of anticoagulants; Z79.82 Long term (current) use of aspirin; Z79.899 Other long term (current) drug therapy; Z91.041 Radiographic dye allergy status; Z91.048 Other nonmedicinal substance allergy status
CPT/HCPCS: 36415; 71045; 80053; 83880; 84484; 85025; 93005; 96374; 96376; 99285; J0360; J3490